=== PATIENT | female | born 1940 | race Caucasian/White ===

== ENCOUNTER 2016-08-10 13:24 | Observation (INO) | payer OTHER, MEDICARE ==
[2016-08-10] MEDS ORDERED: ASPIRIN 81 MG CHEWABLE TABLETS PO ONE (13:37)
[2016-08-10] MEDS ORDERED: ASPIRIN 81 MG CHEWABLE TABLETS ONE (14:02)
[2016-08-10 14:06] VITALS: BMI 21.3
--- NOTE | 2016-08-10 14:12 | PDOC ---
History of Present Illness <Felisa Vargas - Last Filed: 08/10/16 16:11> - General History Source: Patient Exam Limitations: No Limitations - History of Present Illness Presenting Symptoms: Chest Pain Timing/Duration: reports: resolved prior to arrival Severity/Quality: reports: moderate, dull Location: reports: substernal Chest Pain Radiation: reports: no radiation Activities at Onset: reports: none Prior Chest Pain/Cardiac Workup: reports: No prior chest pain Modifying Factors: improves with: other (relieved after taking asa at doctors office) Nitro Today/Relief: Yes: no nitro taken today Aspirin Received prior to arrival (Core Measure): Yes: 325 mg x 1 ASA Contraindications (Core Measure): No: Allergy Beta Vijay given by EMS (Core Measure): No <Gi Morales - Last Filed: 08/10/16 16:43> - General Chief Complaint: Chest Pain Stated Complaint: CHEST PAIN Time Seen by Provider: 08/10/16 13:36 - History of Present Illness Initial Comments: 08/10/16 14:20 76 yo F with h/o HTN breast CA, s/p mastectomy pacemaker, on coumadin here with c/o feeling cp. pt states 2 days ago was feeling muscle cramps, mild anorexia, and didn't feel right. today went to see dr. Martinez, suddently felt chest pain. describes pressure like sensation left chest wall, no radiation, no n/v no fever no sob. no cough. no leg swelling. sent to ED. given ASA in office. ( Gi Morales) Past History <Felisa Vargas - Last Filed: 08/10/16 16:11> - Past Medical History Anemia: No Asthma: No Cancer: Yes (LYMPH NODES LEFT BREAST) Cardiac Disorders: Yes (pacemaker, ) CVA: Yes (HX OF TIA) COPD: No CHF: No Dementia: No (FORGETFUL) Diabetes: No GI Disorders: No Disorders: No HTN: Yes Hypercholesterolemia: Yes Liver Disease: No Suicide Attempt (Hx): No Seizures: No Thyroid Disease: Yes - Surgical History Abdominal Surgery: No Appendectomy: Yes Cardiac Surgery: Yes (PACEMAKER [employer] 0CT 16 2009) Cholecystectomy: No Lung Surgery: No Neurologic Surgery: No Orthopedic Surgery: No - Psycho/Social/Smoking Cessation Hx Suicidal Ideation: No Smoking History: Former smoker Have you smoked in the past 12 months: No Number of Cigarettes Smoked Daily: 4 Information on smoking cessation initiated: No Hx Alcohol Use: No Drug/Substance Use Hx: No Substance Use Type: None Hx Substance Use Treatment: No <Gi Morales - Last Filed: 08/10/16 16:43> - Past Medical History Allergies/Adverse Reactions: Allergies Allergy/AdvReac Type Severity Reaction Status Date / Time No Known Drug Allergies Allergy Verified 08/10/16 13:42 Home Medications: Ambulatory Orders Atorvastatin Ca [Lipitor] 20 mg PO HS 12/29/13 Digoxin 250 mcg PO DAILY 12/29/13 Furosemide [Lasix -] 20 mg PO BID 12/29/13 Letrozole 2.5 mg PO HS 12/29/13 Metoprolol Tartrate [Lopressor -] 50 mg PO BID 12/29/13 [place]-3 Fatty Acids [[place]-3] 1,000 mg PO DAILY 12/29/13 Ranitidine [Zantac -] 150 mg PO DAILY 12/29/13 Levothyroxine [Synthroid -] 150 mcg PO DAILY 11/17/14 Cefadroxil Hydrate [Duricef] 500 mg PO BID #20 capsule 11/26/14 Enoxaparin Sodium [Lovenox] 60 mg SQ DAILY #10 ml 11/26/14 Oxycodone HCl/Acetaminophen [Percocet 5-325 mg Tablet] 1 - 2 tab PO Q6H PRN #20 tab 11/26/14 - Surgical History Comments:: 08/10/16 14:12 mastectomy left breast (Gi Moralse) Cardiac Specific PMH - Complaint Specific PMHX Pacemaker: Yes <Gi Morales - Last Filed: 08/10/16 16:43> Review of Systems - Review of Systems Constitutional: No: Chills, Diaphoresis Respiratory: No: Cough, Orthopnea, Shortness of Breath Cardiac (ROS): Yes: Chest Pain ABD/GI: No: Abdominal Distended Musculoskeletal: Yes: Joint Stiffness Integumentary: No: Bruising, Change in Color All Other Systems: Reviewed and Negative <Gi Morales - Last Filed: 08/10/16 16:43> *Physical Exam - Physical Exam HEENT: positive: [place] Neck: positive: Trachea midline Respiratory/Chest: positive: Lungs Clear, Normal Breath Sounds. negative: Respiratory Distress Cardiovascular: positive: Regular Rhythm, Regular Rate, S1, S2. negative: Edema , JVD Gastrointestinal/Abdominal: positive: Normal Bowel Sounds. negative: Tender, Flat, Soft Musculoskeletal: positive: Normal Inspection Deep Tendon Reflexes: Ankle (L): 2+, Ankle (R): 2+ <Gi Morales - Last Filed: 08/10/16 16:43> - Vital Signs Last Vital Signs Temp Pulse Resp BP Pulse Ox 97.9 F 63 16 158/90 99 08/10/16 13:30 08/10/16 14:56 08/10/16 14:56 08/10/16 14:56 08/10/16 14:56 Heart Score/ECG Review <Felisa Vargas - Last Filed: 08/10/16 16:11> <Gi Morales - Last Filed: 08/10/16 16:43> - ECG Intrepretation Comment:: 08/10/16 14:17 paced ekg ventricular paced, TWI II, III AVF wide qrs. rate 65 bpm (Gi Morales) ED Treatment Course - LABORATORY CBC & Chemistry Diagram: 08/10/16 14:15 08/10/16 14:15 <Felisa Vargas - Last Filed: 08/10/16 16:11> - LABORATORY CBC & Chemistry Diagram: 08/10/16 14:15 08/10/16 14:15 <Gi Morales - Last Filed: 08/10/16 16:43> - ADDITIONAL ORDERS Additional order review: Laboratory Results 08/10/16 08/10/16 14:15 14:15 INR 1.88 H D Sodium 141 Potassium 4.5 Chloride 104 Carbon Dioxide 27 Anion Gap 10 BUN 25 H D Creatinine 0.9 Creat Clearance w eGFR > 60 Random Glucose 87 Calcium 10.2 H Magnesium 2.3 Total Bilirubin 0.5 D AST 30 D ALT 30 D Alkaline Phosphatase 125 H D Creatine Kinase 69 Troponin I < 0.02 Total Protein 8.1 Albumin 3.9 08/10/16 14:15 RBC 4.51 MCV 90.0 MCHC 32.7 RDW 14.7 MPV 8.1 Neutrophils % 71.8 Lymphocytes % 19.3 Monocytes % 5.7 Eosinophils % 2.2 Basophils % 1.0 - RADIOLOGY Radiology Studies Ordered: Category Date Time Status CHEST PA & LAT [RAD] Stat Radiology 08/10/16 13:37 Completed Radiograph Interpretation: 08/10/16 16:11 EXAM: CXR INTERPRETED BY: Dr. Sears REVIEWED BY: Dr. Morales IMPRESSION: Mild increased interstitial lung markings which may reflect chronic interstitial lung disease, and appears slightly worse compared to November 22, 2014. Component of vascular congestion cannot be excluded. (Felisa Vargas) - Medications Given in the ED: ED Medications Discontinued Medications Generic Name Dose Route Start Last Admin Trade Name Freq PRN Reason Stop Dose Admin Aspirin 162 mg 08/10/16 13:37 08/10/16 14:05 Asa - PO 08/10/16 13:38 162 mg ONCE ONE Administration Medical Decision Making <Felisa Vargas - Last Filed: 08/10/16 16:11> <Gi Morales - Last Filed: 08/10/16 16:43> - Medical Decision Making 08/10/16 16:06 First call placed to Dr. Broderick at 16:06. Awaiting call back. Case discussed with Dr. Martinez at 16:08. (Felisa Vargas) 08/10/16 14:18 76 yo F with h/o HTN breast CA, s/p mastectomy pacemaker, on coumadin here with c/o feeling cp. pt states 2 days ago was feeling muscle cramps, mild anorexia, and didn't feel right. today went to see dr. Martinez, suddently felt chest pain. describes pressure like sensation left chest wall, no radiation, no n/v no fever no sob. no cough. no leg swelling. sent to ED. given ASA in office. on exam awake alert, no longer having cp. lungs CTAB card reg paced, no m/r/g. abd soft NT ext wwp no edema. MDM" differentila chest wall pain, effusion, pna, mass, acs. plan cxr labs ekg trop will d/w dr. page david r/o acs. (Gi Morales) *DC/Admit/Observation/Transfer <Felisa Vargas - Last Filed: 08/10/16 16:11> - Discharge Dispostion Admit: Yes <Gi Morales - Last Filed: 08/10/16 16:43> Diagnosis at time of Disposition: Chest pain, Breast cancer, left - Referrals Referrals: Kristina Martinez MD [Primary Care Provider] - - Attestations Scribe Attestion: 08/10/16 16:07 Documentation prepared by Felisa Vargas, acting as hospital medical assistant for Gi Morales MD. (Felisa Vargas)
[2016-08-10 14:27] LABS: EOSINOPHIL 2.2 % (0-4.5); MCH 29.4 pg (25.7-33.7); MCHC 32.7 g/dl (32.0-36.0); MEAN PLT VOLUME 8.1 fl (7.5-11.1); NEUTROPHILS 71.8 % (42.8-82.8); PLATELET COUNT 138 K/MM3 (134-434); RDW 14.7 % (11.6-15.6); WHITE BLOOD COUNT 6.9 K/mm3 (4.0-10.0)
[2016-08-10 14:40] LABS: INR 1.88 (0.82-1.09); PROTHROMBIN TIME (PATIENT) 20.9 SEC (9.98-11.88)
[2016-08-10 14:58] LABS: ALBUMIN 3.9 g/dl (3.4-5.0); ANION GAP 10 (8-16); BILIRUBIN,TOTAL 0.5 mg/dL (0.2-1.0); CALCIUM 10.2 mg/dL (8.5-10.1); CO2 27 mmol/L (21-32); CREATININE 0.9 mg/dL (0.55-1.02); GLUCOSE,RANDOM 87 mg/dL (74-106); MAGNESIUM 2.3 mg/dL (1.8-2.4); SGOT/AST 30 U/L (15-37); SGPT/ALT 30 U/L (12-78); TOT PROT 8.1 g/dl (6.4-8.2)
[2016-08-10 15:00] LABS: ALK PHOS 125 U/L (45-117); TROPONIN I < 0.02 ng/ml (0.00-0.05)
--- NOTE | 2016-08-10 18:10 | CON.CARD ---
Consult Consult Specialty:: Cardiology Reason for Consultation:: Chest pain - History of Present Illness Chief Complaint: Chest pain History of Present Illness: This is a 76 year old female with a PMH of HTN, breast CA with a mastecomy in the past, PPM, and is on chronic coumadin therapy for underlying atrial fibrillation. She presents to the ED with 2 days of intermittent muscle cramps and intermittent chest pain. She described the chest pain to me as a left sided discomfort that was non radiating and not associated with nausea and/or diaphoresis. The chest discomfort may have an exertional component as she stated that she was "moving some furniture" at the time. The first troponin was <0.02. EKG shows underlying atrial fibrillation with electronic ventricular pacing at 65 BPM. 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 Cardio/Vascular: Yes: AFIB, HTN, Hyperlipdemia, Murmur Pulmonary: Yes: COPD - Past Surgical History Past Surgical History: Yes: Permanent Pacemaker - Alcohol/Substance Use Hx Alcohol Use: No - Smoking History Smoking history: Former smoker Have you smoked in the past 12 months: No Aproximately how many cigarettes per day: 4 Home Medications - Allergies Allergies/Adverse Reactions: Allergies Allergy/AdvReac Type Severity Reaction Status Date / Time No Known Drug Allergies Allergy Verified 08/10/16 13:42 - Home Medications Home Medications: Ambulatory Orders Atorvastatin Ca [Lipitor] 20 mg PO HS 12/29/13 Digoxin 250 mcg PO DAILY 12/29/13 Furosemide [Lasix -] 20 mg PO BID 12/29/13 Letrozole 2.5 mg PO HS 12/29/13 Metoprolol Tartrate [Lopressor -] 50 mg PO BID 12/29/13 [place]-3 Fatty Acids [[place]-3] 1,000 mg PO DAILY 12/29/13 Ranitidine [Zantac -] 150 mg PO DAILY 12/29/13 Levothyroxine [Synthroid -] 150 mcg PO DAILY 11/17/14 Cefadroxil Hydrate [Duricef] 500 mg PO BID #20 capsule 11/26/14 Enoxaparin Sodium [Lovenox] 60 mg SQ DAILY #10 ml 11/26/14 Oxycodone HCl/Acetaminophen [Percocet 5-325 mg Tablet] 1 - 2 tab PO Q6H PRN #20 tab 08/28/15 Family Disease History - Family Disease History Family Disease History: CA: Daughter (41) Review of Systems Unable to obtain ROS, reason: A per HPI Vital Signs: Vital Signs Temperature 97.9 F 08/10/16 13:30 Pulse Rate 63 08/10/16 14:56 Respiratory Rate 16 08/10/16 14:56 Blood Pressure 158/90 08/10/16 14:56 O2 Sat by Pulse Oximetry (%) 99 08/10/16 14:56 Constitutional: Yes: No Distress Respiratory: Yes: CTA Bilaterally Gastrointestinal: Yes: Soft Cardiovascular: Yes: Regular Rate and Rhythm JVD: No Carotid Bruit: No Heart Sounds: Yes: S1, S2 (No MRHG. PPM noted.) Extremities: Yes: WNL Edema: No Neurological: Yes: Alert (Grossly non focal), Oriented - Other Data Labs, Other Data: CBC, BMP 08/10/16 14:15 08/10/16 14:15 INR, PTT INR 1.88 (0.82-1.09) H D 08/10/16 14:15 Troponin, BNP 08/10/16 14:15 Troponin I < 0.02 Troponin, BNP 08/10/16 14:15 Troponin I < 0.02 Assessment/Plan Chest pain: Continue to follow troponin sets x 3 Would obtain a pharmacologic nuclear stress test and an echocardiogram Agree with Aspirin 162 mg for now Continue at home cardiac meds including: Atorvastatin Ca [Lipitor] 20 mg PO HS Digoxin 250 mcg PO DAILY 12/29/13 Furosemide [Lasix -] 20 mg PO BID 12/29/13 Metoprolol Tartrate [Lopressor -] 50 mg PO BID 12/29/13 Atrial Fibrillation: Continue anticoagulation INR is 1.88, can continue Coumadin to an INR of 2 - 3 If the stress test is positive, we could hold the Coumadin if invasive testing is planned Continue rate control with metoprolol and dioxin Will follow with you
[2016-08-10] MEDS ORDERED: ACETAMINOPHEN 325 MG TABLET (FP) PO PRN (19:47)
[2016-08-10] MEDS ORDERED: WARFARIN NA 2 MG TABLET (UD) PO ONE (19:49)
[2016-08-10] MEDS: RANITIDINE HCL 150 MG TABLET (FP) PO SCH (21:37)
[2016-08-10] MEDS: METOPROLOL TARTRATE 50 MG TABLET (FP) PO SCH (21:37)
[2016-08-10] MEDS: ATORVASTATIN CA 20 MG TABLET (FP) PO SCH (21:37)
[2016-08-10 22:21] LABS: TROPONIN I < 0.02 ng/ml (0.00-0.05)
[2016-08-11] MEDS: LEVOTHYROXINE NA 88 MCG TABLET (FP) PO SCH (05:59)
[2016-08-11 08:22] LABS: MCHC 32.8 g/dl (32.0-36.0); MEAN CELL VOLUME 88.5 fl (80-96); MEAN PLT VOLUME 8.3 fl (7.5-11.1); PLATELET COUNT 135 K/MM3 (134-434); RDW 14.5 % (11.6-15.6); WHITE BLOOD COUNT 7.6 K/mm3 (4.0-10.0)
--- NOTE | 2016-08-11 08:33 | PN ---
Progress Note, Physician Chief Complaint: Admitted with chest pain Telem Afib with occ Vpaced. No symptoms overnight - Current Medication List Current Medications: Active Medications Acetaminophen (Tylenol -) 650 mg PO Q6H PRN PRN Reason: FEVER OR PAIN Aspirin (Ecotrin -) 81 mg PO DAILY [facility] Atorvastatin Calcium (Lipitor -) 20 mg PO HS [facility] Last Admin: 08/10/16 21:37 Dose: 20 mg Digoxin (Lanoxin -) 0.125 mg PO DAILY [facility] Levothyroxine Sodium (Synthroid -) 88 mcg PO DAILY@0700 [facility] Last Admin: 08/11/16 05:59 Dose: 88 mcg Metoprolol Tartrate (Lopressor -) 100 mg PO BID [facility] Last Admin: 08/10/16 21:37 Dose: 100 mg Ranitidine HCl (Zantac -) 150 mg PO DAILY [facility] Last Admin: 08/10/16 21:37 Dose: 150 mg Warfarin Sodium (Coumadin -) 3.5 mg PO DAILY@1800 [facility] - Objective Vital Signs: Vital Signs Temperature 99 F 08/11/16 05:45 Pulse Rate 66 08/11/16 05:45 Respiratory Rate 16 08/11/16 05:45 Blood Pressure 125/54 08/11/16 05:45 O2 Sat by Pulse Oximetry (%) 99 08/10/16 23:52 Constitutional: Yes: Well Nourished, No Distress HENT: Yes: WNL Neck: Yes: WNL Cardiovascular: Yes: Pulse Irregular Respiratory: Yes: CTA Bilaterally Gastrointestinal: Yes: Normal Bowel Sounds, Soft Edema: No Peripheral Pulses WNL: Yes Labs: CBC, BMP 08/11/16 05:40 INR, PTT INR 1.88 (0.82-1.09) H D 08/10/16 14:15 Troponin, BNP 08/10/16 08/10/16 14:15 21:36 Troponin I < 0.02 < 0.02 Laboratory Results - last 24 hr 08/10/16 08/10/16 08/10/16 14:15 14:15 14:15 WBC 6.9 D RBC 4.51 Hgb 13.2 D Hct 40.6 D MCV 90.0 MCHC 32.7 RDW 14.7 Plt Count 138 MPV 8.1 Neutrophils % 71.8 Lymphocytes % 19.3 Monocytes % 5.7 Eosinophils % 2.2 Basophils % 1.0 INR 1.88 H D Sodium 141 Potassium 4.5 Chloride 104 Carbon Dioxide 27 Anion Gap 10 BUN 25 H D Creatinine 0.9 Creat Clearance w eGFR > 60 Random Glucose 87 Calcium 10.2 H Magnesium 2.3 Total Bilirubin 0.5 D AST 30 D ALT 30 D Alkaline Phosphatase 125 H D Creatine Kinase 69 Troponin I < 0.02 Total Protein 8.1 Albumin 3.9 08/10/16 08/11/16 21:36 05:40 WBC 7.6 RBC 3.96 Hgb 11.5 D Hct 35.1 MCV 88.5 MCHC 32.8 RDW 14.5 Plt Count 135 MPV 8.3 Neutrophils % Lymphocytes % Monocytes % Eosinophils % Basophils % INR Sodium Potassium Chloride Carbon Dioxide Anion Gap BUN Creatinine Creat Clearance w eGFR Random Glucose Calcium Magnesium Total Bilirubin AST ALT Alkaline Phosphatase Creatine Kinase 78 Troponin I < 0.02 Total Protein Albumin - ....Imaging Chest X-ray: Report Reviewed Problem List - Problems (1) Chest pain Assessment/Plan: History of breast cancer with new onset of CP. OREN negative. Please obtain pharmacologic stress and an echocardiogram. Code(s): R07.9 - CHEST PAIN, UNSPECIFIED (2) A-fib Assessment/Plan: Rate controlled INR, PTT INR 1.88 (0.82-1.09) H D 08/10/16 14:15 Goal INR 2-3 Will follow Code(s): I48.91 - UNSPECIFIED ATRIAL FIBRILLATION
[2016-08-11 08:50] LABS: INR 2.1 (0.82-1.09); PROTHROMBIN TIME (PATIENT) 23.5 SEC (9.98-11.88)
[2016-08-11 08:52] LABS: CHOLESTEROL 181 mg/dL (50-200); LDL CHOLESTEROL (ONLY SJRH) 84 mg/dL (5-100)
[2016-08-11 09:10] LABS: ALBUMIN 3.1 g/dl (3.4-5.0); ALK PHOS 102 U/L (45-117); ANION GAP 8 (8-16); BILIRUBIN,TOTAL 1.3 mg/dL (0.2-1.0); CALCIUM 9.5 mg/dL (8.5-10.1); CO2 27 mmol/L (21-32); CREATININE 0.9 mg/dL (0.55-1.02); GLUCOSE,RANDOM 85 mg/dL (74-106); SGOT/AST 26 U/L (15-37); SGPT/ALT 24 U/L (12-78); TOT PROT 6.3 g/dl (6.4-8.2)
[2016-08-11] MEDS: METOPROLOL TARTRATE 50 MG TABLET (FP) PO SCH ×2 (09:46→21:43)
[2016-08-11] MEDS: DIGOXIN 0.125 MG TABLET (FP) PO SCH (09:46)
[2016-08-11] MEDS: ASPIRIN COATED 81 MG TABLET.EC PO SCH (09:47)
[2016-08-11] MEDS: RANITIDINE HCL 150 MG TABLET (FP) PO SCH (09:47)
--- NOTE | 2016-08-11 14:16 | HP ---
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 Cardiovascular: Yes: AFIB, HTN, Hyperlipdemia, Murmur Pulmonary: Yes: COPD Heme/Onc: Yes: Cancer (BREAST) - Past Surgical History Past Surgical History: Yes: Permanent Pacemaker - Smoking History Smoking history: Former smoker Have you smoked in the past 12 months: No Aproximately how many cigarettes per day: 4 - Alcohol/Substance Use Hx Alcohol Use: No Home Medications - Allergies Allergies/Adverse Reactions: Allergies Allergy/AdvReac Type Severity Reaction Status Date / Time No Known Drug Allergies Allergy Verified 08/10/16 13:42 - Home Medications Home Medications: Ambulatory Orders Atorvastatin Ca [Lipitor] 20 mg PO HS 12/29/13 Metoprolol Tartrate [Lopressor -] 100 mg PO BID 12/29/13 [place]-3 Fatty Acids [[place]-3] 1,000 mg PO DAILY 12/29/13 Ranitidine [Zantac -] 150 mg PO DAILY 12/29/13 Levothyroxine [Synthroid -] 88 mcg PO DAILY 11/17/14 Cholecalciferol (Vitamin D3) [Vitamin D3 -] 2,000 unit PO DAILY 08/10/16 Digoxin [Lanoxin -] 0.125 mg PO DAILY 08/10/16 Warfarin Sodium 3.5 mg PO 1800 08/10/16 Family Disease History - Family Disease History Family Disease History: CA: Daughter (41) Review of Systems - Review of Systems Constitutional: reports: No Symptoms Eyes: reports: No Symptoms HENT: reports: No Symptoms Neck: reports: No Symptoms Cardiovascular: reports: Chest Pain, Shortness of Breath Respiratory: reports: Orthopnea, SOB Gastrointestinal: reports: No Symptoms Genitourinary: reports: No Symptoms Musculoskeletal: reports: No Symptoms Integumentary: reports: No Symptoms Neurological: reports: No Symptoms Endocrine: reports: No Symptoms Hematology/Lymphatic: reports: No Symptoms Psychiatric: reports: No Symptoms Physical Examination Vital Signs: Vital Signs Temperature 99 F 08/11/16 05:45 Pulse Rate 65 08/11/16 09:46 Respiratory Rate 16 08/11/16 05:45 Blood Pressure 125/54 08/11/16 05:45 O2 Sat by Pulse Oximetry (%) 99 08/10/16 23:52 Constitutional: Yes: Mild Distress Eyes: Yes: WNL HENT: Yes: WNL Neck: Yes: WNL Cardiovascular: Yes: Pulse Irregular Respiratory: Yes: WNL, On Nasal O2 Gastrointestinal: Yes: WNL Renal/: Yes: WNL Musculoskeletal: Yes: WNL Extremities: Yes: WNL Edema: No Peripheral Pulses WNL: Yes Integumentary: Yes: WNL Wound/Incision: Yes: Clean/Dry Neurological: Yes: WNL ...Motor Strength: WNL Psychiatric: Yes: WNL Labs: CBC, BMP 08/11/16 05:40 08/11/16 05:40 Problem List - Problems (1) Chest pain Code(s): R07.9 - CHEST PAIN, UNSPECIFIED Qualifiers: Ischemic chest pain type: unstable angina pectoris (2) A-fib Code(s): I48.91 - UNSPECIFIED ATRIAL FIBRILLATION (3) CVA (cerebral infarction) Code(s): I63.9 - CEREBRAL INFARCTION, UNSPECIFIED (4) Dizziness Code(s): R42 - DIZZINESS AND GIDDINESS Assessment/Plan CARDIOLOGY WORKUP IN PROGRESS INR THERAPEUTIC TODAY CONTINUE COUMADIN 02 SUPPORT CARDIOLOG CONSULT APPRECIATED BREAST CA STABLE OLD CVA
[2016-08-11] MEDS ORDERED: WARFARIN NA 3 MG TABLET PO SCH (18:00)
[2016-08-11] MEDS: ATORVASTATIN CA 20 MG TABLET (FP) PO SCH (21:42)
[2016-08-12] MEDS: LEVOTHYROXINE NA 88 MCG TABLET (FP) PO SCH (06:09)
--- NOTE | 2016-08-12 08:38 | PN ---
Progress Note, Physician Chief Complaint: Admitted with chest pain Telem Afib with occ Vpaced. No symptoms overnight Telem Afib occ Paced - Current Medication List Current Medications: Active Medications Acetaminophen (Tylenol -) 650 mg PO Q6H PRN PRN Reason: FEVER OR PAIN Aspirin (Ecotrin -) 81 mg PO DAILY [facility] Last Admin: 08/11/16 09:47 Dose: 81 mg Atorvastatin Calcium (Lipitor -) 20 mg PO HS [facility] Last Admin: 08/11/16 21:42 Dose: 20 mg Digoxin (Lanoxin -) 0.125 mg PO DAILY [facility] Last Admin: 08/11/16 09:46 Dose: 0.125 mg Levothyroxine Sodium (Synthroid -) 88 mcg PO DAILY@0700 [facility] Last Admin: 08/12/16 06:09 Dose: 88 mcg Metoprolol Tartrate (Lopressor -) 100 mg PO BID [facility] Last Admin: 08/11/16 21:43 Dose: 100 mg Ranitidine HCl (Zantac -) 150 mg PO DAILY [facility] Last Admin: 08/11/16 09:47 Dose: 150 mg Warfarin Sodium (Coumadin -) 3.5 mg PO DAILY@1800 [facility] - Objective Vital Signs: Vital Signs Temperature 97.2 F L 08/12/16 06:00 Pulse Rate 66 08/12/16 06:00 Respiratory Rate 20 08/12/16 06:00 Blood Pressure 138/72 08/12/16 06:00 O2 Sat by Pulse Oximetry (%) 96 08/11/16 21:00 Constitutional: Yes: Calm Eyes: Yes: WNL, Conjunctiva Clear HENT: Yes: WNL, Atraumatic, Normocephalic Neck: Yes: WNL Cardiovascular: Yes: Pulse Irregular Respiratory: Yes: WNL Gastrointestinal: Yes: WNL Labs: CBC, BMP 08/11/16 05:40 08/11/16 05:40 INR, PTT INR 2.10 (0.82-1.09) H 08/11/16 05:40 Problem List - Problems (1) Chest pain Assessment/Plan: History of breast cancer with new onset of CP. OREN negative. Please obtain pharmacologic stress and an echocardiogram. Please check dig level (ordered) Code(s): R07.9 - CHEST PAIN, UNSPECIFIED Qualifiers: Ischemic chest pain type: unstable angina pectoris (2) A-fib Code(s): I48.91 - UNSPECIFIED ATRIAL FIBRILLATION Qualifiers: Atrial fibrillation type: chronic Qualified Code(s): I48.2 - Chronic atrial fibrillation
[2016-08-12] MEDS: ASPIRIN COATED 81 MG TABLET.EC PO SCH (10:33)
[2016-08-12] MEDS: DIGOXIN 0.125 MG TABLET (FP) PO SCH (10:33)
[2016-08-12] MEDS: RANITIDINE HCL 150 MG TABLET (FP) PO SCH (10:34)
[2016-08-12] MEDS: METOPROLOL TARTRATE 50 MG TABLET (FP) PO SCH ×2 (10:43→21:17)
[2016-08-12 11:26] LABS: INR 2.1 (0.82-1.09); PROTHROMBIN TIME (PATIENT) 23.4 SEC (9.98-11.88)
[2016-08-12] MEDS: WARFARIN NA 1 MG TABLET (FP) PO SCH (18:07)
--- NOTE | 2016-08-12 20:59 | PN ---
Progress Note, Physician Chief Complaint: AWAKE ALERT NAD - Current Medication List Current Medications: Active Medications Acetaminophen (Tylenol -) 650 mg PO Q6H PRN PRN Reason: FEVER OR PAIN Aspirin (Ecotrin -) 81 mg PO DAILY [facility] Last Admin: 08/12/16 10:33 Dose: 81 mg Atorvastatin Calcium (Lipitor -) 20 mg PO HS [facility] Last Admin: 08/11/16 21:42 Dose: 20 mg Digoxin (Lanoxin -) 0.125 mg PO DAILY [facility] Last Admin: 08/12/16 10:33 Dose: 0.125 mg Levothyroxine Sodium (Synthroid -) 88 mcg PO DAILY@0700 [facility] Last Admin: 08/12/16 06:09 Dose: 88 mcg Metoprolol Tartrate (Lopressor -) 100 mg PO BID [facility] Last Admin: 08/12/16 10:43 Dose: 100 mg Ranitidine HCl (Zantac -) 150 mg PO DAILY [facility] Last Admin: 08/12/16 10:34 Dose: 150 mg Warfarin Sodium (Coumadin -) 3.5 mg PO DAILY@1800 [facility] Last Admin: 08/12/16 18:07 Dose: 3.5 mg - Objective Vital Signs: Vital Signs Temperature 98.0 F 08/12/16 17:10 Pulse Rate 80 08/12/16 17:10 Respiratory Rate 18 08/12/16 17:10 Blood Pressure 140/68 08/12/16 17:10 O2 Sat by Pulse Oximetry (%) 96 08/11/16 21:00 Constitutional: Yes: No Distress Eyes: Yes: WNL HENT: Yes: WNL Neck: Yes: WNL Cardiovascular: Yes: WNL Respiratory: Yes: WNL Gastrointestinal: Yes: WNL Genitourinary: Yes: WNL Musculoskeletal: Yes: WNL Extremities: Yes: WNL Edema: No Peripheral Pulses WNL: Yes Integumentary: Yes: WNL Wound/Incision: Yes: Clean/Dry Neurological: Yes: WNL ...Motor Strength: WNL Psychiatric: Yes: WNL Labs: CBC, BMP 08/11/16 05:40 08/11/16 05:40 INR, PTT INR 2.10 (0.82-1.09) H 08/12/16 11:07 Problem List - Problems (1) Chest pain Code(s): R07.9 - CHEST PAIN, UNSPECIFIED Qualifiers: Ischemic chest pain type: unstable angina pectoris (2) A-fib Code(s): I48.91 - UNSPECIFIED ATRIAL FIBRILLATION Qualifiers: Atrial fibrillation type: chronic Qualified Code(s): I48.2 - Chronic atrial fibrillation (3) CVA (cerebral infarction) Code(s): I63.9 - CEREBRAL INFARCTION, UNSPECIFIED (4) Dizziness Code(s): R42 - DIZZINESS AND GIDDINESS Assessment/Plan CARDIOLOGY WORKUP IN PROGRESS STRESS TEST IN AM INR THERAPEUTIC TODAY CONTINUE COUMADIN 02 SUPPORT CARDIOLOG CONSULT APPRECIATED BREAST CA STABLE OLD CVA
[2016-08-12] MEDS: ATORVASTATIN CA 20 MG TABLET (FP) PO SCH (21:17)
[2016-08-13] MEDS: LEVOTHYROXINE NA 88 MCG TABLET (FP) PO SCH (05:59)
--- NOTE | 2016-08-13 08:26 | PN ---
Progress Note, Physician History of Present Illness: feels better no cp or sob - Current Medication List Current Medications: Active Medications Acetaminophen (Tylenol -) 650 mg PO Q6H PRN PRN Reason: FEVER OR PAIN Aspirin (Ecotrin -) 81 mg PO DAILY [facility] Last Admin: 08/12/16 10:33 Dose: 81 mg Atorvastatin Calcium (Lipitor -) 20 mg PO HS [facility] Last Admin: 08/12/16 21:17 Dose: 20 mg Digoxin (Lanoxin -) 0.125 mg PO DAILY [facility] Last Admin: 08/12/16 10:33 Dose: 0.125 mg Levothyroxine Sodium (Synthroid -) 88 mcg PO DAILY@0700 [facility] Last Admin: 08/13/16 05:59 Dose: 88 mcg Metoprolol Tartrate (Lopressor -) 100 mg PO BID [facility] Last Admin: 08/12/16 21:17 Dose: 100 mg Ranitidine HCl (Zantac -) 150 mg PO DAILY [facility] Last Admin: 08/12/16 10:34 Dose: 150 mg Warfarin Sodium (Coumadin -) 3.5 mg PO DAILY@1800 [facility] Last Admin: 08/12/16 18:07 Dose: 3.5 mg - Objective Vital Signs: Vital Signs Temperature 98.0 F 08/13/16 05:48 Pulse Rate 65 08/13/16 05:48 Respiratory Rate 20 08/13/16 05:48 Blood Pressure 133/65 08/13/16 05:48 O2 Sat by Pulse Oximetry (%) 96 08/13/16 04:26 Eyes: Yes: Conjunctiva Clear Cardiovascular: Yes: Murmur, S1, S2 Respiratory: Yes: Regular, CTA Bilaterally Gastrointestinal: Yes: Normal Bowel Sounds, Soft Edema: No Labs: INR, PTT INR 2.10 (0.82-1.09) H 08/12/16 11:07 Problem List - Problems (1) Chest pain Assessment/Plan: CE NEGATIVE STRESS TEST CARDIO NOTED Code(s): R07.9 - CHEST PAIN, UNSPECIFIED Qualifiers: Ischemic chest pain type: unstable angina pectoris (2) A-fib Assessment/Plan: CONTINUE WITH AC INR, PTT INR 2.10 (0.82-1.09) H 08/12/16 11:07 Code(s): I48.91 - UNSPECIFIED ATRIAL FIBRILLATION Qualifiers: Atrial fibrillation type: chronic Qualified Code(s): I48.2 - Chronic atrial fibrillation (3) Breast cancer Code(s): C50.919 - MALIGNANT NEOPLASM OF UNSP SITE OF UNSPECIFIED FEMALE BREAST Qualifiers: Breast location: central portion of breast Laterality: left (4) Pacemaker Assessment/Plan: MONITOR Code(s): Z95.0 - PRESENCE OF CARDIAC PACEMAKER
[2016-08-13] MEDS ORDERED: DIPYRIDAMOLE STRESS TEST IVPB ONE (10:00)
[2016-08-13] MEDS ORDERED: WATER IVPB ONE (10:00)
[2016-08-13] MEDS ORDERED: DEXTROSE 5% IVPB ONE (10:00)
--- NOTE | 2016-08-13 12:55 | EKG ---
Test Reason : Blood Pressure : / mmHG Vent. Rate : 065 BPM Atrial Rate : 067 BPM P-R Int : 000 ms QRS Dur : 160 ms QT Int : 408 ms P-R-T Axes : 000 081 193 degrees QTc Int : 424 ms Ventricular-paced rhythm UNDERLYING ATRIAL FIBRILLATION ABNORMAL ECG WHEN COMPARED WITH ECG OF 20-JUN-2014 19:37, NO SIGNIFICANT CHANGE WAS FOUND Confirmed by ANT SALAS MD ([id number]) on 08/13/2016 12:55:17 PM Referred By: Confirmed By:NAT SALAS MD
[2016-08-13] MEDS: DIGOXIN 0.125 MG TABLET (FP) PO SCH (13:10)
[2016-08-13] MEDS: ASPIRIN COATED 81 MG TABLET.EC PO SCH (13:10)
[2016-08-13] MEDS: METOPROLOL TARTRATE 50 MG TABLET (FP) PO SCH (13:10)
[2016-08-13] MEDS: RANITIDINE HCL 150 MG TABLET (FP) PO SCH (13:11)
[2016-08-13 13:17] VITALS: BP 130/60; PULSE 75; TEMP 97.8
--- NOTE | 2016-08-13 14:25 | PN ---
Progress Note, Physician Chief Complaint: chest pain on admission No pain since admission Tele: afib with v-pacing intermittent. History of Present Illness: This is a 76 year old female with a PMH of HTN, breast CA with a mastecomy in the past, PPM, and is on chronic coumadin therapy for underlying atrial fibrillation. She presents to the ED with 2 days of intermittent muscle cramps and intermittent chest pain. EKG shows underlying atrial fibrillation with electronic ventricular pacing at 65 BPM. - Current Medication List Current Medications: Active Medications Acetaminophen (Tylenol -) 650 mg PO Q6H PRN PRN Reason: FEVER OR PAIN Aspirin (Ecotrin -) 81 mg PO DAILY [facility] Last Admin: 08/13/16 13:10 Dose: 81 mg Atorvastatin Calcium (Lipitor -) 20 mg PO HS [facility] Last Admin: 08/12/16 21:17 Dose: 20 mg Digoxin (Lanoxin -) 0.125 mg PO DAILY [facility] Last Admin: 08/13/16 13:10 Dose: 0.125 mg Levothyroxine Sodium (Synthroid -) 88 mcg PO DAILY@0700 [facility] Last Admin: 08/13/16 05:59 Dose: 88 mcg Metoprolol Tartrate (Lopressor -) 100 mg PO BID [facility] Last Admin: 08/13/16 13:10 Dose: 100 mg Ranitidine HCl (Zantac -) 150 mg PO DAILY [facility] Last Admin: 08/13/16 13:11 Dose: 150 mg Warfarin Sodium (Coumadin -) 3.5 mg PO DAILY@1800 [facility] Last Admin: 08/12/16 18:07 Dose: 3.5 mg - Objective Vital Signs: Vital Signs Temperature 97.8 F 08/13/16 13:16 Pulse Rate 75 08/13/16 13:16 Respiratory Rate 22 08/13/16 13:16 Blood Pressure 130/60 08/13/16 13:16 O2 Sat by Pulse Oximetry (%) 96 08/13/16 04:26 Constitutional: Yes: No Distress Neck: Yes: WNL Cardiovascular: Yes: S1, S2. No: Regular Rate and Rhythm, JVD Respiratory: Yes: CTA Bilaterally Gastrointestinal: Yes: WNL Musculoskeletal: Yes: WNL Edema: No Labs: INR, PTT INR 2.10 (0.82-1.09) H 08/12/16 11:07 - ....Imaging Chest X-ray: Report Reviewed EKG: Image Reviewed Problem List - Problems (1) Chest pain Code(s): R07.9 - CHEST PAIN, UNSPECIFIED Qualifiers: Ischemic chest pain type: unstable angina pectoris (2) A-fib Code(s): I48.91 - UNSPECIFIED ATRIAL FIBRILLATION Qualifiers: Atrial fibrillation type: chronic Qualified Code(s): I48.2 - Chronic atrial fibrillation Assessment/Plan This is a 76 year old female with a PMH of HTN, breast CA with a mastecomy in the past, PPM, and is on chronic coumadin therapy for underlying atrial fibrillation. She presents to the ED with 2 days of intermittent muscle cramps and intermittent chest pain. EKG shows underlying atrial fibrillation with electronic ventricular pacing at 65 BPM. 1) Chest pain -Negative cardiac enzymes On aspirin/statin/beta rik No recurrent chest pain Plan is for echocardiogram and Nuclear stress test. 2) Afib -rate control on metoprolol and digoxin H/o ppm -On coumadin with goal INR 2-3. If plan for further cardiac intervention will stop coumadin.
[2016-08-13] MEDS: WARFARIN NA 1 MG TABLET (FP) PO SCH (17:29)
== END 2016-08-13 18:30 | disposition home or self-care (01) ==
LOC: JER 13:24 → UNDOADMOB 16:44 → JERBED 16:44 → INTOOBSV 16:44 → J4W 19:26 → JERBED 19:26 → J4W 08-12 20:26
PROVIDERS: ADMIT Family Medicine; ATTEND Family Medicine
PROC: 3E033GC Introduction of Other Therapeutic Substance into Peripheral Vein, Percutaneous Approach (ICD-10-PCS; principal; 2016-08-12)
DX: R07.9 Chest pain, unspecified (principal); I48.2 Chronic atrial fibrillation; I10 Essential (primary) hypertension; I63.9 Cerebral infarction, unspecified; E78.5 Hyperlipidemia, unspecified; J44.9 Chronic obstructive pulmonary disease, unspecified; R01.1 Cardiac murmur, unspecified; R42 Dizziness and giddiness; Z85.3 Personal history of malignant neoplasm of breast; Z95.0 Presence of cardiac pacemaker; Z79.01 Long term (current) use of anticoagulants; Z86.73 Personal history of transient ischemic attack (TIA), and cerebral infarction without residual deficits; Z87.891 Personal history of nicotine dependence; Z79.82 Long term (current) use of aspirin
CPT/HCPCS: 36415; 71020-TC; 78452-TC; 80053; 80061; 80162; 82550; 83721; 83735; 84443; 84484; 85025; 85027; 85610; 93005; 93010; 93017; 99284-25; A9502; G0378; J1245

== ENCOUNTER 2017-06-29 18:58 | Inpatient (IN) | payer OTHER, MEDICARE ==
[2017-06-29 19:05] VITALS: BMI 19.3
--- NOTE | 2017-06-29 19:24 | PDOC ---
History of Present Illness - General Chief Complaint: Weakness Stated Complaint: WEAKNESS Time Seen by Provider: 06/29/17 19:24 - History of Present Illness Initial Comments: 77 year female with remote history of CVA (no deficits, on Coumadin), HTN, and CHF (with pacemaker) presenting with a few days of depressed appetite and weakness. Per her daughter, she has not had much interest in eating and has been weaker than normal. The patient actually states she feels well but slightly more lethargic than usual. She also admits to a RLE weakness that came on within the last few weeks. Denies any fevers, chills, nausea, vomiting, diarrhea, abdominal pain, chest pain, or other symptoms. She lives at home alone , ambulates without assistance, and takes care of her own medication administration. 06/29/17 21:37 Past History - Past Medical History Allergies/Adverse Reactions: Allergies Allergy/AdvReac Type Severity Reaction Status Date / Time No Known Drug Allergies Allergy Verified 06/29/17 19:05 Home Medications: Ambulatory Orders Atorvastatin Ca [Lipitor] 20 mg PO HS 12/29/13 Metoprolol Tartrate [Lopressor -] 100 mg PO BID 12/29/13 [place]-3 Fatty Acids [Fithian-3] 1,000 mg PO DAILY 12/29/13 Ranitidine [Zantac -] 150 mg PO DAILY 12/29/13 Levothyroxine [Synthroid -] 88 mcg PO DAILY 11/17/14 Cholecalciferol (Vitamin D3) [Vitamin D -] 2,000 unit PO DAILY 08/10/16 Digoxin [Lanoxin -] 0.125 mg PO DAILY 08/10/16 Warfarin Sodium 3 mg PO 1800 08/10/16 Levothyroxine [Synthroid -] 88 mcg PO DAILY@0700 tablet 08/13/16 Anemia: No Asthma: No Cancer: Yes (LYMPH NODES LEFT BREAST) Cardiac Disorders: Yes (pacemaker) CVA: Yes (HX OF TIA) COPD: No CHF: No Dementia: No (FORGETFUL) Diabetes: No GI Disorders: No Disorders: No HTN: Yes Hypercholesterolemia: Yes Liver Disease: No Seizures: No Thyroid Disease: Yes - Surgical History Abdominal Surgery: No Appendectomy: Yes Cardiac Surgery: Yes (PACEMAKER [employer] 0CT 2009) Cholecystectomy: No Lung Surgery: No Neurologic Surgery: No Orthopedic Surgery: No - Suicide/Smoking/Psychosocial Hx Smoking History: Never smoked Have you smoked in the past 12 months: No Number of Cigarettes Smoked Daily: 4 Information on smoking cessation initiated: No Hx Alcohol Use: No Drug/Substance Use Hx: No Substance Use Type: None Hx Substance Use Treatment: No Review of Systems - Review of Systems Constitutional: No: Chills, Diaphoresis, Fever HEENTM: No: Eye Pain, Blurred Vision Respiratory: No: Cough, Orthopnea, Shortness of Breath Cardiac (ROS): No: Chest Pain, Edema, Irregular Heart Rate ABD/GI: Yes: Poor Appetite, Poor Fluid Intake. No: Abdominal Distended, Diarrhea, Nausea, Vomiting : No: Dysuria, Discharge, Frequency Musculoskeletal: Yes: Joint Pain, Joint Stiffness. No: Back Pain, Joint Swelling Integumentary: No: Bruising, Lesions, Lumps Neurological: No: Headache, Numbness, Paresthesia *Physical Exam - Vital Signs Last Vital Signs Temp Pulse Resp BP Pulse Ox 97 F L 95 H 18 176/102 97 06/29/17 18:59 06/29/17 18:59 06/29/17 18:59 06/29/17 18:59 06/29/17 18:59 - Physical Exam General Appearance: Yes: Nourished, Appropriately Dressed. No: Apparent Distress HEENT: positive: EOMI, PRUDENCE, Normal ENT Inspection, Normal Voice Neck: positive: Trachea midline, Normal Thyroid, Supple. negative: Tender, Rigid Respiratory/Chest: positive: Lungs Clear, Normal Breath Sounds. negative: Chest Tender, Respiratory Distress, Accessory Muscle Use Cardiovascular: positive: Regular Rhythm, Regular Rate Gastrointestinal/Abdominal: positive: Normal Bowel Sounds, Flat, Soft. negative : Tender Musculoskeletal: positive: Normal Inspection. negative: Decreased Range of Motion Extremity: positive: Normal Capillary Refill, Normal Inspection, Normal Range of Motion. negative: Tender Integumentary: positive: Normal Color, Dry, Warm Neurologic: positive: Fully Oriented, Alert, Normal Mood/Affect. negative: Motor Strength 5/5 (5/5 strength in Bl UEs with 4/5 strength in RLE and 5/5 strength in LLE) ED Treatment Course - LABORATORY CBC & Chemistry Diagram: 06/29/17 20:30 06/29/17 20:30 Medical Decision Making - Medical Decision Making 77 year old female with history of CVA presenting with new RLE deficit for an undefined amount of time. Stroke scale was a 1 and patient well outside the window with last known normal one week prior. CT head demonstrating multiple small likely chronic changes but this could be a small acute infarct as well. Other labs were WNL with the exception of supratherapeutic INR to 4.1. Placed consult for Shelly and admitted patient's to hospitalist. She is amenable to admission and otherwise stable. 06/30/17 00:23 *DC/Admit/Observation/Transfer Diagnosis at time of Disposition: CVA (cerebral infarction) Qualifiers: Cerebral infarction mechanism: unspecified mechanism Qualified Code(s): I63.9 - Cerebral infarction, unspecified - Discharge Dispostion Condition at time of disposition: Stable Admit: Yes - Referrals Referrals: Kristina Martinez MD [Primary Care Provider] - - Patient Instructions - Post Discharge Activity
[2017-06-29 20:35] LABS: BASO % 0.6 % (0-2.0); EOS % 1.4 % (0-4.5); HEMATOCRIT 36.6 % (32.4-45.2); HEMOGLOBIN 12.2 GM/dL (10.7-15.3); LYMPH % 8.9 % (8-40); MCH 28.9 pg (25.7-33.7); MCHC 33.3 g/dl (32.0-36.0); MEAN CELL VOLUME 86.8 fl (80-96); MEAN PLT VOLUME 8.3 fl (7.5-11.1); NEUT % 82.1 % (42.8-82.8); PLATELET COUNT 186 K/MM3 (134-434); RBC 4.21 M/mm3 (3.60-5.2); WHITE BLOOD COUNT 8.2 K/mm3 (4.0-10.0)
[2017-06-29 21:01] LABS: ALBUMIN 3.3 g/dl (3.4-5.0); ANION GAP 6 (8-16); BILIRUBIN,TOTAL 0.7 mg/dL (0.2-1.0); BLOOD UREA NITROGEN 27 mg/dL (7-18); CALCIUM 10.2 mg/dL (8.5-10.1); CHLORIDE 104 mmol/L (98-107); CO2 30 mmol/L (21-32); GLUCOSE,RANDOM 95 mg/dL (74-106); POTASSIUM 4.5 mmol/L (3.5-5.1); SGOT/AST 72 U/L (15-37); SGPT/ALT 23 U/L (12-78); SODIUM 140 mmol/L (136-145); TOT PROT 7.6 g/dl (6.4-8.2)
[2017-06-29 21:16] LABS: ALK PHOS 287 U/L (45-117)
[2017-06-29 21:19] LABS: PROTHROMBIN TIME (PATIENT) 46.7 SEC (9.98-11.88)
[2017-06-29 21:22] LABS: INR 4.13 (0.82-1.09)
[2017-06-29] MEDS ORDERED: SODIUM CHLORIDE 0.9% 500 ML INFUS.BAG IV ONE (21:41)
[2017-06-29 23:10] LABS: URINE APPEARANCE SLCLOUDY; URINE BILIRUBIN NEGATIVE (<2.0 mg/dL); URINE BLOOD NEGATIVE (NEGATIVE); URINE COLOR YELLOW; URINE GLUCOSE (UA) NEGATIVE (NEGATIVE); URINE KETONE TRACE (NEGATIVE); URINE LEUK ESTERASE NEGATIVE (NEGATIVE); URINE NITRITE NEGATIVE (NEGATIVE); URINE UROBILINOGEN NEGATIVE mg/dL (0.2-1.0)
[2017-06-29 23:23] LABS: URINE PROTEIN 2+ (NEGATIVE)
[2017-06-29 23:24] LABS: EPI CELLS FEW /HPF (FEW); URINE BACTERIA RARE /hpf (NONE SEEN); URINE HYALINE CAST 4 /lpf; URINE MUCUS MANY
--- NOTE | 2017-06-29 23:34 | PDOC ---
Attending Attestation - Medical Decision Making 06/29/17 23:42 Lisa, Daughter, <Abdoul Rea - Last Filed: 06/29/17 23:42> - Resident Resident Name: Kel Reyes - ED Attending Attestation I have performed the following: I have examined & evaluated the patient, The case was reviewed & discussed with the resident, I agree w/resident's findings & plan, Exceptions are as noted - HPI HPI: 06/29/17 23:56 Patient is a 77 year old female with a significant past medical history of Afib on coumadin, HTN, Breast CA, CVA (with no residual deficits), Hyperlipidemia, Murmur, COPD, who presents to the ED with complaints of weakness. Patient reports noticing increased weakness as well as decreased appetite that she states began 3 days ago. Pt also notes that she has been having some weakness in her RLE for around a week, but this has become worse, at times making her feel as though she is falling to her right when she ambulates. She also notes she has had to carry her R leg out of the car when she is exiting which is new. Denies chest pain, Sob. Denies nausea, vomiting. Denies constipation, diarrhea, dysuria, hematuria. Denies headache. Denies contact with sick individuals, out of state travelling. Denies numbness, tingles. Denies any other symptoms. Allergies: None Social history: Lives alone. Former smoker, No alcohol, No illicit drugs. Surgical history: Permanent Pacemaker PMD: Dr. Kristina Martinez - Physicial Exam PE: 06/29/17 23:41 GENERAL: Awake, alert, and fully oriented, in no acute distress HEAD: No signs of trauma EYES: PERRLA, EOMI, sclera anicteric, conjunctiva clear ENT: Auricles normal inspection, hearing grossly normal, nares patent, oropharynx clear without exudates. Moist mucosa NECK: Normal ROM, supple, no lymphadenopathy, JVD, or masses LUNGS: Breath sounds equal, clear to auscultation bilaterally. No wheezes, and no crackles HEART: Regular rate and rhythm, normal S1 and S2, no murmurs, rubs or gallops ABDOMEN: Soft, nontender, normoactive bowel sounds. No guarding, no rebound. No masses EXTREMITIES: Normal range of motion, no edema. No clubbing or cyanosis. No cords, erythema, or tenderness NEUROLOGICAL: Normal speech, cranial nerves intact, negative pronator drift, 4/ 5 strength in RLE, 5/5 strength in other extremities, normal sensation to light touch in all 4 extremities, normal cerebellar exam, limping gait favoring RLE, normal reflexes and tone SKIN: Warm, Dry, normal turgor, no rashes or lesions noted. - Medical Decision Making 06/29/17 23:36 77yo F hx CVA (no residual deficits), Afib on coumadin, HTN, Breast CA s/p mastectomy, Hyperlipidemia, Murmur, COPD presents to the emergency department with generalized weakness, and 1 week of right lower extremity weakness. Vitals unremarkable. On exam patient has 4 out of 5 strength in the right lower extremity, with more weakness proximally than distally. Likely CVA. CT head reveals multiple older looking infarcts but no acute infarct. Patient will require an MRI for further evaluation, however does not know if her pacemaker is MRI safe. Patient unable to locate her MRI cart in her wallet. Her daughter Lisa will attempt to locate the card at home, patient has not had any MRIs recently. Will admit the patient for stroke workup. 06/30/17 00:12 Case discussed in detail with admitting physician including history, physical exam and ancillary studies. Admitting physician has assumed care for the patient, will follow all pending diagnostics and will complete the evaluation and treatment. <Eloina Buchanan - Last Filed: 06/30/17 00:54>
--- NOTE | 2017-06-29 23:52 | HP ---
Admitting History and Physical - Primary Care Physician PCP: Kristina Martinez - Admission Chief Complaint: Generalized Weakness, Fatigue, R- Ankle Pain History of Present Illness: This is a 77 y/o woman from home. Who presents to the ED with generalized weakness, fatigue, loss of appetite and R- ankle pain x 1 week. Patient reports "not feeling right". She reports having low energy, no appetite with weight loss. Patient reports walking outside, she tripped twisting her ankle. She reports being able to walk on it, but now tenderness to her R- ankle without swelling. Patient reports having insomnia, racing thoughts with moments of forgetfulness. Patient denies being depressed, suicidal or having homicidal ideations. Patient denies numbness, tingling, or facial droop. Patient denies fever, chills, cough, dizziness, FORRESTER, CP, AP, N/V/D, constipation, dysuria. History Source: Patient Limitations to Obtaining History: No Limitations - Past Medical History [employer]: Yes: CVA, TIA Cardiovascular: Yes: AFIB, HTN, Hyperlipdemia, Murmur Pulmonary: Yes: COPD Heme/Onc: Yes: Cancer (BREAST) - Past Surgical History Past Surgical History: Yes: Mastectomy (Left), Permanent Pacemaker - Smoking History Smoking history: Never smoked Have you smoked in the past 12 months: No Aproximately how many cigarettes per day: 4 - Alcohol/Substance Use Hx Alcohol Use: No History of Substance Use: reports: None - Social History Usual Living Arrangement: Yes: Alone ADL: Independent History of Recent Travel: No Home Medications - Allergies Allergies/Adverse Reactions: Allergies Allergy/AdvReac Type Severity Reaction Status Date / Time No Known Drug Allergies Allergy Verified 06/29/17 19:05 - Home Medications Home Medications: Ambulatory Orders Atorvastatin Ca [Lipitor] 20 mg PO HS 12/29/13 Metoprolol Tartrate [Lopressor -] 100 mg PO BID 12/29/13 [place]-3 Fatty Acids [[place]-3] 1,000 mg PO DAILY 12/29/13 Ranitidine [Zantac -] 150 mg PO DAILY 12/29/13 Levothyroxine [Synthroid -] 88 mcg PO DAILY 11/17/14 Cholecalciferol (Vitamin D3) [Vitamin D -] 2,000 unit PO DAILY 08/10/16 Digoxin [Lanoxin -] 0.125 mg PO DAILY 08/10/16 Warfarin Sodium 3 mg PO 1800 08/10/16 Levothyroxine [Synthroid -] 88 mcg PO DAILY@0700 tablet 08/13/16 Family Disease History - Family Disease History Family Disease History: CA: Daughter (41) Review of Systems - Review of Systems Constitutional: reports: Lethargy, Loss of Appetite, Malaise, Unintentional Wgt. Loss, Weakness Eyes: reports: No Symptoms HENT: reports: No Symptoms Neck: reports: No Symptoms Cardiovascular: reports: No Symptoms Respiratory: reports: No Symptoms Gastrointestinal: reports: No Symptoms Genitourinary: reports: No Symptoms Breasts: reports: No Symptoms Reported Musculoskeletal: reports: Extremity Pain (R-ankle) Integumentary: reports: No Symptoms Neurological: reports: Confusion, Incoordination Endocrine: reports: No Symptoms Hematology/Lymphatic: reports: No Symptoms Psychiatric: reports: Altered Sleep Pattern, Other (Racing thoughts) Physical Examination Vital Signs: Vital Signs Temperature 97.8 F 06/29/17 22:36 Pulse Rate 75 06/29/17 22:36 Respiratory Rate 18 06/29/17 22:36 Blood Pressure 160/77 06/29/17 22:36 O2 Sat by Pulse Oximetry (%) 99 06/29/17 22:36 Constitutional: Yes: No Distress, Calm, Thin Eyes: Yes: WNL, Conjunctiva Clear, EOM Intact, PERRL HENT: Yes: WNL, Atraumatic, Normocephalic Neck: Yes: WNL, Supple, Trachea Midline Cardiovascular: Yes: Pulse Irregular, Murmur, S1, S2 Respiratory: Yes: WNL, Regular, CTA Bilaterally Gastrointestinal: Yes: WNL, Normal Bowel Sounds, Soft ...Rectal Exam: Yes: Deferred Renal/: Yes: WNL Breast(s): Yes: Left (Mastectomy) Musculoskeletal: Yes: Other (right lateral ankle tenderness to palpation) Edema: No Peripheral Pulses WNL: Yes Integumentary: Yes: WNL Neurological: Yes: Confusion ...Motor Strength: WNL Psychiatric: Yes: WNL, Alert, Oriented Labs: CBC, BMP 06/29/17 20:30 06/29/17 20:30 Laboratory Results - last 24 hr 06/29/17 06/29/17 06/29/17 20:30 20:30 20:30 WBC 8.2 D RBC 4.21 Hgb 12.2 Hct 36.6 MCV 86.8 MCH 28.9 MCHC 33.3 RDW 15.0 Plt Count 186 D MPV 8.3 Neutrophils % 82.1 Lymphocytes % 8.9 D Monocytes % 7.0 Eosinophils % 1.4 Basophils % 0.6 PT with INR 46.70 H INR 4.13 H* D Sodium 140 Potassium 4.5 Chloride 104 Carbon Dioxide 30 Anion Gap 6 L BUN 27 H Creatinine 1.0 Creat Clearance w eGFR 54.05 Random Glucose 95 Calcium 10.2 H Total Bilirubin 0.7 D AST 72 H ALT 23 Alkaline Phosphatase 287 H Creatine Kinase Creatine Kinase Index CK-MB (CK-2) Troponin I Total Protein 7.6 Albumin 3.3 L Urine Color Urine Appearance Urine pH Ur Specific [place] Urine Protein Urine Glucose (UA) Urine Ketones Urine Blood Urine Nitrite Urine Bilirubin Urine Urobilinogen Ur Leukocyte Esterase Urine WBC (Auto) Urine RBC (Auto) Ur Epithelial Cells Urine Bacteria Hyaline Casts Urine Mucus Digoxin 1.6626 06/29/17 06/29/17 20:30 23:00 WBC RBC Hgb Hct MCV MCH MCHC RDW Plt Count MPV Neutrophils % Lymphocytes % Monocytes % Eosinophils % Basophils % PT with INR INR Sodium Potassium Chloride Carbon Dioxide Anion Gap BUN Creatinine Creat Clearance w eGFR Random Glucose Calcium Total Bilirubin AST ALT Alkaline Phosphatase Creatine Kinase 169 Creatine Kinase Index 0.9 CK-MB (CK-2) 1.610 Troponin I 0.03 Total Protein Albumin Urine Color Yellow Urine Appearance Slcloudy Urine pH 5.0 Ur Specific [place] 1.016 Urine Protein 2+ H Urine Glucose (UA) Negative Urine Ketones Trace H Urine Blood Negative Urine Nitrite Negative Urine Bilirubin Negative Urine Urobilinogen Negative Ur Leukocyte Esterase Negative Urine WBC (Auto) 4 Urine RBC (Auto) 5 Ur Epithelial Cells Few Urine Bacteria Rare Hyaline Casts 4 Urine Mucus Many Digoxin Intake & Output 06/27/17 06/28/17 06/29/17 06/30/17 23:59 23:59 23:59 23:59 Weight 54.431 kg Imaging - Results Chest X-ray: Image Reviewed X-ray: Pending EKG: Image Reviewed (Atrial Ventricular Paced Rhythm Prolonged AV Conduction) Problem List - Problems (1) Weakness Code(s): R53.1 - WEAKNESS (2) Supratherapeutic INR Code(s): R79.1 - ABNORMAL COAGULATION PROFILE (3) CVA (cerebral infarction) Code(s): I63.9 - CEREBRAL INFARCTION, UNSPECIFIED Qualifiers: Cerebral infarction mechanism: unspecified mechanism Qualified Code(s): I63.9 - Cerebral infarction, unspecified (4) A-fib Code(s): I48.91 - UNSPECIFIED ATRIAL FIBRILLATION Qualifiers: Atrial fibrillation type: chronic Qualified Code(s): I48.2 - Chronic atrial fibrillation (5) Hypothyroid Code(s): E03.9 - HYPOTHYROIDISM, UNSPECIFIED (6) HTN (hypertension) Code(s): I10 - ESSENTIAL (PRIMARY) HYPERTENSION (7) Insomnia Code(s): G47.00 - INSOMNIA, UNSPECIFIED (8) Pacemaker Code(s): Z95.0 - PRESENCE OF CARDIAC PACEMAKER (9) Breast cancer, left Code(s): C50.912 - MALIGNANT NEOPLASM OF UNSPECIFIED SITE OF LEFT FEMALE BREAST (10) Decreased appetite Code(s): R63.0 - ANOREXIA (11) DVT prophylaxis Code(s): [id number] - Assessment/Plan This is a 77 y/o woman who presents to the ED with weakness, fatigue and decreased appetite. Admitted for TIA r/o CVA, Generalized Weakness. Plan: 1. Neurology: TIA r/o CVA Hx CVA (no residual) Admit to Tele Continue cardiac monitoring Neuro Consult Swallow Eval Carotid Doppler Echo Swallow Eval NPO CT- neg acute ICH, old infarcts Fall Precautions 2. Cardiology: Afib HTN HLD Pacemaker [id number] EKG- Atrial Ventricular Paced Hold Coumadin 2/2 INR 4.13 Daily INR Pacemaker- Medtronic( implanted,01/14/10) 3. Heme/Onc: Supratherapuetic INR- see above L- Breast Ca- s/p mastectomy, no current chemo, RT, in remission per pt 4. Pulmonology: COPD Duonebs Continue med 5. Ortho: Right Ankle Pain R-Ankle Xray pending- r/o FX Tylenol prn 6.Endocrinology: Loss of Appetite Hypothyroid- continue levothyroxine RD consult Albumin 3.3 Consider ensure supplements when diet resumed 7. Psych: Anxiety Insomnia Consider Psych consult TSH level 8. FEN - D51/2NS@42cc/hr - Replete lytes prn - NPO 9. DVT ppx - OOB - SCDs Code Status: Full Code Dispo: Observation Visit type - Emergency Visit Emergency Visit: Yes ED Registration Date: 06/29/17 Care time: The patient presented to the Emergency Department on the above date and was hospitalized for further evaluation of their emergent condition. - New Patient This patient is new to me today: Yes Date on this admission: 06/29/17 - Critical Care Critical Care patient: No Hospitalist Screening - Colonoscopy Questionnaire Colonoscopy Questionnaire: Colonoscopy Questionnaire - Patient: 50 - 75 years old and never had a screening colonoscopy: No History of colon or rectal polyps, or CA: No History of IBD, Crohn's disease or UC: No History of abdominal radiation therapy as a child: No - Relative: 1 with colon or rectal CA, or polyps at age 60 or younger: No Colon or rectal CA diagnosed at age 45 or younger: No Multiple relatives with colon or rectal CA: No - Outcome: Screening Result: Negative Screen
[2017-06-30 09:01] LABS: BASO % 0.9 % (0-2.0); EOS % 1.6 % (0-4.5); HEMATOCRIT 33.8 % (32.4-45.2); HEMOGLOBIN 11.2 GM/dL (10.7-15.3); LYMPH % 15.4 % (8-40); MCH 28.6 pg (25.7-33.7); MCHC 33.2 g/dl (32.0-36.0); MEAN CELL VOLUME 86.4 fl (80-96); MEAN PLT VOLUME 8.4 fl (7.5-11.1); MONO % 9.2 % (3.8-10.2); NEUT % 72.9 % (42.8-82.8); PLATELET COUNT 176 K/MM3 (134-434); RBC 3.91 M/mm3 (3.60-5.2); RDW 15.2 % (11.6-15.6); WHITE BLOOD COUNT 6.2 K/mm3 (4.0-10.0)
[2017-06-30] MEDS ORDERED: ALBUTEROL SO4 2.5/IPRATROPIUM 0.5 INH SOL 3 ML VIAL.NEB. NEB PRN (09:04)
[2017-06-30 09:13] LABS: PROTHROMBIN TIME (PATIENT) 49.8 SEC (9.98-11.88)
[2017-06-30 09:32] LABS: ANION GAP 8 (8-16); BLOOD UREA NITROGEN 25 mg/dL (7-18); CALCIUM 9.8 mg/dL (8.5-10.1); CHLORIDE 106 mmol/L (98-107); CO2 27 mmol/L (21-32); CREATININE 0.8 mg/dL (0.55-1.02); GLUCOSE,RANDOM 86 mg/dL (74-106); POTASSIUM 4.7 mmol/L (3.5-5.1); SODIUM 141 mmol/L (136-145)
[2017-06-30 09:52] LABS: INR 4.41 (0.82-1.09)
[2017-06-30] MEDS: LEVOTHYROXINE NA 88 MCG TABLET (FP) PO SCH (10:30)
[2017-06-30] MEDS ORDERED: METOPROLOL TARTRATE 50 MG TABLET (FP) ONE (10:34)
[2017-06-30] MEDS: DIGOXIN 0.125 MG TABLET (FP) PO SCH (10:35)
[2017-06-30] MEDS: METOPROLOL TARTRATE 50 MG TABLET (FP) PO SCH ×2 (10:35→22:20)
[2017-06-30] MEDS: DEXTROSE 5%-0.45% SALINE 1,000 ML IV SCH (10:35)
--- NOTE | 2017-06-30 10:55 | PN ---
Progress Note, Physician - Current Medication List Current Medications: Active Medications Albuterol/Ipratropium (Duoneb -) 1 amp NEB Q6H PRN PRN Reason: SHORTNESS OF BREATH Atorvastatin Calcium (Lipitor -) 20 mg PO HS [facility] Digoxin (Lanoxin -) 0.125 mg PO DAILY [facility] Last Admin: 06/30/17 10:35 Dose: 0.125 mg Dextrose/Sodium Chloride (D5-1/2ns -) 1,000 mls @ 42 mls/hr IV ASDIR [facility] Last Admin: 06/30/17 10:35 Dose: 42 mls/hr Levothyroxine Sodium (Synthroid -) 88 mcg PO DAILY@0700 [facility] Last Admin: 06/30/17 10:30 Dose: 88 mcg Metoprolol Tartrate (Lopressor -) 100 mg PO BID [facility] Last Admin: 06/30/17 10:35 Dose: 100 mg - Objective Vital Signs: Vital Signs Temperature 98.3 F 06/30/17 06:59 Pulse Rate 86 06/30/17 10:30 Respiratory Rate 19 06/30/17 06:59 Blood Pressure 155/85 06/30/17 10:30 O2 Sat by Pulse Oximetry (%) 100 06/30/17 10:30 Labs: CBC, BMP 06/30/17 08:50 06/30/17 08:50 INR, PTT INR 4.41 (0.82-1.09) H* 06/30/17 08:50 Problem List - Problems (1) CVA (cerebral infarction) Assessment/Plan: This is a 77 y/o woman who presents to the ED with weakness, fatigue and decreased appetite. Admitted for TIA r/o CVA, Generalized Weakness. TIA r/o CVA Hx CVA (no residual) Admit to Tele Continue cardiac monitoring Neuro Consult Swallow Eval Carotid Doppler Echo Swallow Eval NPO CT- neg acute ICH, old infarcts Fall Precautions Code(s): I63.9 - CEREBRAL INFARCTION, UNSPECIFIED Qualifiers: Cerebral infarction mechanism: unspecified mechanism Qualified Code(s): I63.9 - Cerebral infarction, unspecified (2) Decreased appetite Assessment/Plan: 6.Endocrinology: Loss of Appetite Hypothyroid- continue levothyroxine RD consult Albumin 3.3 Consider ensure supplements when diet resumed TSH Code(s): R63.0 - ANOREXIA (3) Hypothyroid Code(s): E03.9 - HYPOTHYROIDISM, UNSPECIFIED (4) Supratherapeutic INR Assessment/Plan: HOLD COUMADIN FOLLOW INR Code(s): R79.1 - ABNORMAL COAGULATION PROFILE (5) A-fib Assessment/Plan: Pacemaker [id number] EKG- Atrial Ventricular Paced Hold Coumadin 2/2 INR 4.13 Daily INR Pacemaker- Medtronic( implanted,01/14/10) Code(s): I48.91 - UNSPECIFIED ATRIAL FIBRILLATION Qualifiers: Atrial fibrillation type: chronic Qualified Code(s): I48.2 - Chronic atrial fibrillation (6) Weakness Assessment/Plan: PT AWAIT W/U Code(s): R53.1 - WEAKNESS Assessment/Plan 5. Ortho: Right Ankle Pain R-Ankle Xray pending- r/o FX Tylenol prn
[2017-06-30] MEDS: ATORVASTATIN CA 20 MG TABLET (FP) PO SCH (22:20)
[2017-07-01] MEDS: DEXTROSE 5%-0.45% SALINE 1,000 ML IV SCH ×2 (06:32→09:17)
[2017-07-01] MEDS: LEVOTHYROXINE NA 88 MCG TABLET (FP) PO SCH (06:32)
[2017-07-01 07:08] LABS: BASO % 0.8 % (0-2.0); EOS % 3.9 % (0-4.5); HEMATOCRIT 34.4 % (32.4-45.2); HEMOGLOBIN 11.3 GM/dL (10.7-15.3); LYMPH % 13.3 % (8-40); MCH 28.5 pg (25.7-33.7); MCHC 32.9 g/dl (32.0-36.0); MEAN CELL VOLUME 86.6 fl (80-96); MEAN PLT VOLUME 8.5 fl (7.5-11.1); MONO % 10.3 % (3.8-10.2); NEUT % 71.7 % (42.8-82.8); PLATELET COUNT 176 K/MM3 (134-434); RBC 3.97 M/mm3 (3.60-5.2); RDW 14.9 % (11.6-15.6); WHITE BLOOD COUNT 6.2 K/mm3 (4.0-10.0)
[2017-07-01 07:40] LABS: INR 3.6 (0.82-1.09); PROTHROMBIN TIME (PATIENT) 40.7 SEC (9.98-11.88)
[2017-07-01 08:00] LABS: CHLORIDE 105 mmol/L (98-107); POTASSIUM 4.4 mmol/L (3.5-5.1); SODIUM 139 mmol/L (136-145)
[2017-07-01 08:16] LABS: ALBUMIN 2.6 g/dl (3.4-5.0); ALK PHOS 230 U/L (45-117); ANION GAP 7 (8-16); BILIRUBIN,TOTAL 0.9 mg/dL (0.2-1.0); BLOOD UREA NITROGEN 21 mg/dL (7-18); CALCIUM 9.4 mg/dL (8.5-10.1); CO2 27 mmol/L (21-32); CREATININE 0.8 mg/dL (0.55-1.02); GLUCOSE,RANDOM 88 mg/dL (74-106); SGOT/AST 43 U/L (15-37); SGPT/ALT 17 U/L (12-78); TOT PROT 6.2 g/dl (6.4-8.2)
[2017-07-01] MEDS: METOPROLOL TARTRATE 50 MG TABLET (FP) PO SCH ×2 (09:18→21:45)
[2017-07-01] MEDS: DIGOXIN 0.125 MG TABLET (FP) PO SCH (09:18)
--- NOTE | 2017-07-01 10:52 | CONSULT ---
Admitting History and Physical - Primary Care Physician PCP: Kristina Martinez - Admission History of Present Illness: This is a 77 y/o woman who presents to the ED with weakness, fatigue and decreased appetite. Admitted for TIA r/o CVA, Generalized Weakness. History Source: Patient, Family Member, Medical Record Limitations to Obtaining History: No Limitations - Past Medical History AQUATIC BIOLOGIST: Yes: CVA, TIA Cardiovascular: Yes: AFIB, HTN, Hyperlipdemia, Murmur Pulmonary: Yes: COPD Heme/Onc: Yes: Cancer (BREAST) - Past Surgical History Past Surgical History: Yes: Mastectomy (Left), Permanent Pacemaker - Smoking History Smoking history: Never smoked Have you smoked in the past 12 months: No Aproximately how many cigarettes per day: 4 - Alcohol/Substance Use Hx Alcohol Use: No History of Substance Use: reports: None - Social History ADL: Independent History of Recent Travel: No History - Admission Reason For Visit: CEREBRAL INFARCTION - Diagnostics X-ray: Report Reviewed CT Scan: Report Reviewed - General Mental Status: Alert and Oriented, Awake and Alert, Able to Follow Commands Attention: Intact Ability to Follow Directions: Good Head/Neck Control: WFL - Hearing Hearing: Normal Speech Evaluation - Communication Primary Language: BELARUSIAN Communication: Yes: Within Normal Limits Oral Expression Ability: Yes: No Impairment - Speech Production Able to Make Needs Known: Yes: WNL Intelligibility: Yes: WNL - Speech Characteristics Voice Loudness: Normal Voice Pitch: Yes: Normal Voice Phonatory-based Quality: Yes: Normal Speech Pattern: Normal Speech Clarity: < 100% Nasal Resonance: Normal Articulation: Yes: Precise Rate of Speech: Intact - Language/Auditory Comprehension Follows: Yes: 2 Stage Simple Commands - Language/Verbal Expression Able to Respond to Simple Queries: Yes: WNL Able to Communicate Wants and Needs: Yes: WNL Functional Communication Status: Yes: WNL - Memory/Perception prison Memory: Yes: WNL Short Term Memory: Yes: WNL - Swallow Evaluation/Bedside Assessment Current Nutritional Intake: Regular, Thin Liquids Oral Secretions: Yes: WFL Dentition: Yes: Missing Teeth (lower), Dental Appliance Upper (at home. Upper edentulous but one tooth) Facial Symmetry at Rest: Symmetrical Facial Symmetry on Retraction: Symmetrical Facial Movement: Controlled Sensation: Normal Against Resistance Opening: Normal Against Resistance Closing: Normal Pucker Lips: Normal Smile: Normal Lingual Movement: Normal, Symmetric Lingual Speed of Movement: Normal Lingual Movement Strgth Against Opposition: Normal Lingual Movement Characteristics: Normal Velopharyngeal Movement: Normal Laryngeal Elevation: WFL Laryngeal Movement: Able to Palpate Rate of Intake: WFL Bolus Size: WFL Chewing: WFL Oral Prep Time: WFL A-P Transit: WFL Pocketing: None Timing of Swallow: WFL Coughing/Throat Clear: No Change in Voice: No Recommendations - Speech Evaluation, Impression/Plan Impression: Speech production, language, cognition ,swallowing intact - Dysphagia Impressions/Plan Swallowing Skills: [facility] Dysphagia Impressions: No Impairment *Silent aspiration: cannot be R/O at bedside Recommendations: Other (Bring dentures from home, for ease of chewing.) - Recommendations Diet Consistency: Regular Medication Administration: Whole with water Liquids: Thin Liquids
--- NOTE | 2017-07-01 13:15 | PN ---
Progress Note, Physician Chief Complaint: AWAKE ALERT THIS IS M FIRST ENCONTER WITH THIS PATIENT DENIES HEADACHE CP OR SOB DENIES - Current Medication List Current Medications: Active Medications Albuterol/Ipratropium (Duoneb -) 1 amp NEB Q6H PRN PRN Reason: SHORTNESS OF BREATH Atorvastatin Calcium (Lipitor -) 20 mg PO HS [facility] Last Admin: 06/30/17 22:20 Dose: 20 mg Digoxin (Lanoxin -) 0.125 mg PO DAILY [facility] Last Admin: 07/01/17 09:18 Dose: 0.125 mg Dextrose/Sodium Chloride (D5-1/2ns -) 1,000 mls @ 42 mls/hr IV ASDIR [facility] Last Admin: 07/01/17 09:17 Dose: Not Given Levothyroxine Sodium (Synthroid -) 88 mcg PO DAILY@0700 [facility] Last Admin: 07/01/17 06:32 Dose: 88 mcg Metoprolol Tartrate (Lopressor -) 100 mg PO BID [facility] Last Admin: 07/01/17 09:18 Dose: 100 mg - Objective Vital Signs: Vital Signs Temperature 98.1 F 07/01/17 10:00 Pulse Rate 72 07/01/17 10:00 Respiratory Rate 18 07/01/17 10:00 Blood Pressure 138/78 07/01/17 10:00 O2 Sat by Pulse Oximetry (%) 96 06/30/17 23:00 Constitutional: Yes: No Distress Eyes: Yes: WNL HENT: Yes: WNL Neck: Yes: WNL Cardiovascular: Yes: Pulse Irregular Respiratory: Yes: WNL Gastrointestinal: Yes: WNL Genitourinary: Yes: WNL Musculoskeletal: Yes: Muscle Weakness Extremities: Yes: WNL Edema: No Peripheral Pulses WNL: Yes Integumentary: Yes: WNL Wound/Incision: Yes: Clean/Dry Neurological: Yes: Pre-Existing Deficit ...Motor Strength: LLE, RLE Psychiatric: Yes: WNL Labs: CBC, BMP 07/01/17 06:42 07/01/17 06:42 INR, PTT INR 3.60 (0.82-1.09) H 07/01/17 06:42 Problem List - Problems (1) CVA (cerebral infarction) Code(s): I63.9 - CEREBRAL INFARCTION, UNSPECIFIED Qualifiers: Cerebral infarction mechanism: unspecified mechanism Qualified Code(s): I63.9 - Cerebral infarction, unspecified (2) DVT prophylaxis Code(s): [id number] - (3) Decreased appetite Code(s): R63.0 - ANOREXIA (4) Hypothyroid Code(s): E03.9 - HYPOTHYROIDISM, UNSPECIFIED (5) Supratherapeutic INR Code(s): R79.1 - ABNORMAL COAGULATION PROFILE (6) A-fib Code(s): I48.91 - UNSPECIFIED ATRIAL FIBRILLATION Qualifiers: Atrial fibrillation type: chronic Qualified Code(s): I48.2 - Chronic atrial fibrillation (7) Breast cancer Code(s): C50.919 - MALIGNANT NEOPLASM OF UNSP SITE OF UNSPECIFIED FEMALE BREAST Qualifiers: Breast location: central portion of breast Laterality: left (8) Pacemaker Code(s): Z95.0 - PRESENCE OF CARDIAC PACEMAKER Assessment/Plan PT EVAL NEUROLOGY CONSULT ON STATIN THERAPY INR SUPRATHERAPEUTIC WILL RESTART SWALLOW EVAL ON TELE NO ALARMS
--- NOTE | 2017-07-01 13:17 | PN ---
Progress Note (short form) - Note Progress Note: ADDENDUM: ALK PHS ELEVATED ON STATIN THERAPY CHECK SONO OF LIVER HEP PANEL Problem List - Problems (1) CVA (cerebral infarction) Code(s): I63.9 - CEREBRAL INFARCTION, UNSPECIFIED Qualifiers: Cerebral infarction mechanism: unspecified mechanism Qualified Code(s): I63.9 - Cerebral infarction, unspecified (2) DVT prophylaxis Code(s): [id number] - (3) Decreased appetite Code(s): R63.0 - ANOREXIA (4) Hypothyroid Code(s): E03.9 - HYPOTHYROIDISM, UNSPECIFIED (5) Supratherapeutic INR Code(s): R79.1 - ABNORMAL COAGULATION PROFILE (6) A-fib Code(s): I48.91 - UNSPECIFIED ATRIAL FIBRILLATION Qualifiers: Atrial fibrillation type: chronic Qualified Code(s): I48.2 - Chronic atrial fibrillation (7) Breast cancer Code(s): C50.919 - MALIGNANT NEOPLASM OF UNSP SITE OF UNSPECIFIED FEMALE BREAST Qualifiers: Breast location: central portion of breast Laterality: left (8) Pacemaker Code(s): Z95.0 - PRESENCE OF CARDIAC PACEMAKER
--- NOTE | 2017-07-01 17:28 | EKG ---
Test Reason : Blood Pressure : / mmHG Vent. Rate : 078 BPM Atrial Rate : 078 BPM P-R Int : 244 ms QRS Dur : 158 ms QT Int : 372 ms P-R-T Axes : 104 079 250 degrees QTc Int : 424 ms Atrial-sensed ventricular-paced rhythm with prolonged AV conduction ABNORMAL ECG WHEN COMPARED WITH ECG OF 10-AUG-2016 14:05, VENT. RATE HAS INCREASED BY 13 BPM Confirmed by NAT SALAS MD ([id number]) on 07/01/2017 5:28:34 PM Referred By: Confirmed By:NAT SALAS MD
--- NOTE | 2017-07-01 17:28 | EKG ---
Test Reason : Blood Pressure : / mmHG Vent. Rate : 069 BPM Atrial Rate : 069 BPM P-R Int : 328 ms QRS Dur : 156 ms QT Int : 398 ms P-R-T Axes : 055 086 237 degrees QTc Int : 426 ms Atrial-sensed ventricular-paced rhythm with prolonged AV conduction ABNORMAL ECG WHEN COMPARED WITH ECG OF 29-JUN-2017 19:29, VENT. RATE HAS DECREASED BY 9 BPM Confirmed by JOSUE REHMAN, NAT ([id number]) on 07/01/2017 5:27:47 PM Referred By: Confirmed By:NAT SALAS MD
--- NOTE | 2017-07-01 19:32 | CONSULT ---
Consult - text type - Consultation Consultation Note: NEUROLOGY CONSULTATION is greatly appreciated: This 77 yo RH woman with h/o HTN, Chol, Hypothyroidism, ASHD, AFib, CHF is s/p PPM. She lives alone with 2 of her 4 children [address]. Independent in all ADL's. Walks without cane or walker. Maintained on atorvastatin, metoprolol, ranitidine, L-Thyroxine (88ug), Digoxin (0.125 Mg) and Coumadin. Seen by me 12/30/13 with multiple old CVA's and new Left CVA- suggesting multiple emboli. ! 1/2 weeks ago she stubbed her toe stepping over a curb. Now admitted after few days of feeling unwell, decreased appetite. She denies new weakness, change in gait, speech or vision. Now fells better. CT of head (reviewed):Chronic, B/L frontal and occipital and left parietal cortical infarcts with moderate diffuse atrophy. Unchanged from 2015. Labs: Dig= 1.663 urine WBC's; INR=4.13/4.411 MANN: No bruits, s/p PPM right pectoralis, Cor reg? No evidence of external head trauma. NEURO: Awake, alert, cooperative. Mild OMS. CN II-XII: Normal Motor: No drift. No cogwheeling, Reduced BRITTANY's. Brisk reflexes except absent AJ's No FTN dystaxia Decreased vibration feet Gait: Sl. wide-based and shuffling. IMP: Mild-mod, B/L cerebral dysfunction, possibly on a multiinfarct basis. Mod. Diabetic peripheral neuropathy. Admission more like due to Toxic-metabolic encephalopathy than to a vascular event such as TIA (but annot fully exclude)> SUGGEST: Continue coumadin to INR 2.5-3.0 Out patient carotid duplex doppler Out patient PT and neuro follow-up. Thank you very much, Louis Hernandez MD
[2017-07-01] MEDS ORDERED: PT OWN MED DRAWER 7, Y5N ONE (21:39)
[2017-07-01] MEDS: ATORVASTATIN CA 20 MG TABLET (FP) PO SCH (21:44)
--- NOTE | 2017-07-01 21:52 | PDOC ---
NIH Stroke Scale - Last Known Well Date/Time & Onset Date Last Known Well: 06/23/17 (Unclear but at least one week prior) - Initial Evaluation Level of consciousness: Alert Ask patient the month and their age: Answers both correctly Ask patient to open & close eyes; make fist and let go: Obeys both correctly Best gaze (horizontal eye movement): Normal Visual field testing: No visual field loss Facial paresis (Show teeth/raise eyebrows/close eyes tight): Normal symmetrical movement Motor Function: Left Arm: Normal Motor Function: Right Arm: Normal (extends arm 90 (or 45) degrees for 10 seconds without drift Motor Function: Left Leg: Normal (extends leg 30 degrees for 5 seconds without drift) Motor Function: Right Leg: Normal (extends leg 30 degrees for 5 seconds without drift) Limb Ataxia: Present in one limb Sensory(Use pinprick test arms,legs,trunk,face/side to side): Normal Best language (Describe picture, name items, read sentences): No Aphasia Dysarthria (read several words): Normal articulation Extinction and Inattention: No abnormality - Total Score NIH Stroke Scale Score: 1
[2017-07-02 02:14] LABS: URINE APPEARANCE CLEAR; URINE BILIRUBIN NEGATIVE (<2.0 mg/dL); URINE BLOOD NEGATIVE (NEGATIVE); URINE COLOR STRAW; URINE GLUCOSE (UA) NEGATIVE (NEGATIVE); URINE KETONE NEGATIVE (NEGATIVE); URINE LEUK ESTERASE NEGATIVE (NEGATIVE); URINE NITRITE NEGATIVE (NEGATIVE); URINE PROTEIN NEGATIVE (NEGATIVE); URINE UROBILINOGEN NEGATIVE mg/dL (0.2-1.0)
[2017-07-02] MEDS: LEVOTHYROXINE NA 88 MCG TABLET (FP) PO SCH (06:14)
[2017-07-02 07:33] LABS: ANION GAP 8 (8-16); BLOOD UREA NITROGEN 22 mg/dL (7-18); CALCIUM 9.6 mg/dL (8.5-10.1); CHLORIDE 103 mmol/L (98-107); CO2 28 mmol/L (21-32); GLUCOSE,RANDOM 85 mg/dL (74-106); MAGNESIUM 1.7 mg/dL (1.8-2.4); POTASSIUM 3.8 mmol/L (3.5-5.1); SODIUM 139 mmol/L (136-145)
[2017-07-02 07:44] LABS: INR 2.15 (0.82-1.09); PROTHROMBIN TIME (PATIENT) 24.3 SEC (9.98-11.88)
[2017-07-02 08:04] LABS: HEMATOCRIT 36.4 % (32.4-45.2); HEMOGLOBIN 11.9 GM/dL (10.7-15.3); MCH 28.4 pg (25.7-33.7); MCHC 32.8 g/dl (32.0-36.0); MEAN CELL VOLUME 86.7 fl (80-96); MEAN PLT VOLUME 8.5 fl (7.5-11.1); PLATELET COUNT 184 K/MM3 (134-434); WHITE BLOOD COUNT 5.8 K/mm3 (4.0-10.0)
[2017-07-02] MEDS: METOPROLOL TARTRATE 50 MG TABLET (FP) PO SCH ×2 (09:11→21:05)
[2017-07-02] MEDS: DIGOXIN 0.125 MG TABLET (FP) PO SCH (09:11)
--- NOTE | 2017-07-02 09:17 | PN ---
Progress Note, Physician History of Present Illness: feels better - Current Medication List Current Medications: Active Medications Albuterol/Ipratropium (Duoneb -) 1 amp NEB Q6H PRN PRN Reason: SHORTNESS OF BREATH Atorvastatin Calcium (Lipitor -) 20 mg PO HS [facility] Last Admin: 07/01/17 21:44 Dose: 20 mg Cholecalciferol (Vitamin D3 -) 2,000 unit PO DAILY [facility] Digoxin (Lanoxin -) 0.125 mg PO DAILY [facility] Last Admin: 07/02/17 09:11 Dose: 0.125 mg Levothyroxine Sodium (Synthroid -) 88 mcg PO DAILY@0700 [facility] Last Admin: 07/02/17 06:14 Dose: 88 mcg Metoprolol Tartrate (Lopressor -) 100 mg PO BID [facility] Last Admin: 07/02/17 09:11 Dose: 100 mg Ranitidine HCl (Zantac -) 150 mg PO DAILY [facility] Warfarin Sodium (Coumadin -) 2 mg PO DAILY@1800 [facility] - Objective Vital Signs: Vital Signs Temperature 98.3 F 07/02/17 06:00 Pulse Rate 75 07/02/17 09:11 Respiratory Rate 18 07/02/17 06:00 Blood Pressure 149/73 07/02/17 06:00 O2 Sat by Pulse Oximetry (%) 97 07/01/17 23:00 Neck: Yes: Supple Cardiovascular: Yes: S1, S2 Respiratory: Yes: Regular, CTA Bilaterally Gastrointestinal: Yes: Normal Bowel Sounds, Soft Labs: CBC, BMP 07/02/17 05:35 07/02/17 05:35 INR, PTT INR 2.15 (0.82-1.09) H D 07/02/17 05:35 Problem List - Problems (1) CVA (cerebral infarction) Assessment/Plan: This is a 77 y/o woman who presents to the ED with weakness, fatigue and decreased appetite. Admitted for TIA r/o CVA, Generalized Weakness. TIA r/o CVA--ct neg for acute Hx CVA (no residual) Admit to Tele Continue cardiac monitoring Neuro Consult noted Swallow Eval noted Carotid Doppler Echo -reviewed CT- neg acute ICH, old infarcts Fall Precautions pt eval pending Code(s): I63.9 - CEREBRAL INFARCTION, UNSPECIFIED Qualifiers: Cerebral infarction mechanism: unspecified mechanism Qualified Code(s): I63.9 - Cerebral infarction, unspecified (2) Decreased appetite Assessment/Plan: Loss of Appetite--improving Hypothyroid- continue levothyroxine RD consult Albumin 3.3 Consider ensure supplements when diet resumed TSH--noted Code(s): R63.0 - ANOREXIA (3) Hypothyroid Code(s): E03.9 - HYPOTHYROIDISM, UNSPECIFIED (4) Supratherapeutic INR Assessment/Plan: RESUME COUMADIN FOLLOW INR Code(s): R79.1 - ABNORMAL COAGULATION PROFILE (5) A-fib Assessment/Plan: Pacemaker [id number] 6 EKG- Atrial Ventricular Paced Hold Coumadin 2/2 INR 4.13 Daily INR Pacemaker- [employer]( implanted,01/14/10) Code(s): I48.91 - UNSPECIFIED ATRIAL FIBRILLATION Qualifiers: Atrial fibrillation type: chronic Qualified Code(s): I48.2 - Chronic atrial fibrillation (6) Weakness Assessment/Plan: PT PENDING AWAIT W/U Code(s): R53.1 - WEAKNESS Assessment/Plan 5. Ortho: Right Ankle Pain R-Ankle Xray -neg Tylenol prn
--- NOTE | 2017-07-02 11:07 | PN ---
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 sp/sw unchanged. No further f/u indicated.
[2017-07-02] MEDS: RANITIDINE HCL 150 MG TABLET (FP) PO SCH (11:42)
[2017-07-02] MEDS: CHOLECALCIFEROL (VITAMIN D3) 1,000 UNIT TABLET (FP) PO SCH (11:43)
[2017-07-02] MEDS: WARFARIN NA 2 MG TABLET (UD) PO SCH (18:58)
[2017-07-02] MEDS: ATORVASTATIN CA 20 MG TABLET (FP) PO SCH (21:05)
[2017-07-03 06:07] LABS: HEP.C VIRUS AB 0.1 s/co ratio (0.0-0.9)
[2017-07-03] MEDS: LEVOTHYROXINE NA 88 MCG TABLET (FP) PO SCH (06:07)
[2017-07-03] MEDS: RANITIDINE HCL 150 MG TABLET (FP) PO SCH (09:11)
[2017-07-03] MEDS: METOPROLOL TARTRATE 50 MG TABLET (FP) PO SCH (09:11)
[2017-07-03] MEDS: CHOLECALCIFEROL (VITAMIN D3) 1,000 UNIT TABLET (FP) PO SCH (09:11)
[2017-07-03] MEDS: DIGOXIN 0.125 MG TABLET (FP) PO SCH (09:11)
--- NOTE | 2017-07-03 10:48 | DS ---
Physical Examination Vital Signs: Vital Signs Temperature 98.2 F 07/03/17 06:00 Pulse Rate 77 07/03/17 09:11 Respiratory Rate 18 07/03/17 06:00 Blood Pressure 145/70 07/03/17 06:00 O2 Sat by Pulse Oximetry (%) 95 07/03/17 02:00 Findings/Remarks: AWAKE ALERT STILL HAS HESITATIONS ABOUT WALKING AND FALLING ON COUMADIN Constitutional: Yes: Mild Distress Eyes: Yes: WNL HENT: Yes: WNL Neck: Yes: WNL Cardiovascular: Yes: Pulse Irregular Respiratory: Yes: WNL Gastrointestinal: Yes: WNL Renal/: Yes: WNL Musculoskeletal: Yes: Muscle Weakness Extremities: Yes: WNL Edema: No Peripheral Pulses WNL: Yes Integumentary: Yes: WNL Wound/Incision: Yes: Clean/Dry Neurological: Yes: Pre-Existing Deficit, Unsteady Gait ...Motor Strength: LLE, RLE Psychiatric: Yes: Other Labs: CBC, BMP 07/02/17 05:35 07/02/17 05:35 Discharge Summary Reason For Visit: CEREBRAL INFARCTION Current Active Problems CVA (cerebral infarction) (Acute) DVT prophylaxis (Acute) Decreased appetite (Acute) Hypothyroid (Acute) Insomnia (Acute) Supratherapeutic INR (Acute) Procedures: Principal: CT HEAD Hospital Course: ADMITTED ACUTE CVA, TOXIC METABOLIC ENCEPHALOPATHY, AFIB, TREATED ON TELE WITH CARDIO/NEURO WORKUP. ECHO SHOWED PACEMAKER WITH MODERATE VALVE DISEASE. WILL NEED SNF FOR SHORT TERM Condition: Stable - Instructions Diet, Activity, Other Instructions: LOW SODIUM SEE DR QUINTANILLA AFTER DISCHARGE FROM [facility] Referrals: Kristina Quintanilla MD [Primary Care Provider] - Disposition: [facility] F[facility] - Home Medications Comprehensive Discharge Medication List: Ambulatory Orders Atorvastatin Ca [Lipitor] 20 mg PO HS 12/29/13 Metoprolol Tartrate [Lopressor -] 100 mg PO BID 12/29/13 [place]-3 Fatty Acids [[place]-3] 1,000 mg PO DAILY 12/29/13 Ranitidine [Zantac -] 150 mg PO DAILY 12/29/13 Cholecalciferol (Vitamin D3) [Vitamin D -] 2,000 unit PO DAILY 08/10/16 Digoxin [Lanoxin -] 0.125 mg PO DAILY 08/10/16 Warfarin Sodium 3 mg PO 1800 08/10/16 Levothyroxine [Synthroid -] 88 mcg PO DAILY@0700 tablet 08/13/16 Albuterol 2.5/Ipratropium 0.5 [Duoneb -] 1 amp NEB Q6H PRN amp 07/03/17 Warfarin Na [Coumadin -] 2 mg PO DAILY@1800 tablet 07/03/17
[2017-07-03 11:48] LABS: INR 1.5 (0.82-1.09)
[2017-07-03 11:57] LABS: ANION GAP 2 (8-16); BLOOD UREA NITROGEN 24 mg/dL (7-18); CALCIUM 9.8 mg/dL (8.5-10.1); CHLORIDE 104 mmol/L (98-107); CO2 29 mmol/L (21-32); GLUCOSE,RANDOM 69 mg/dL (74-106); MAGNESIUM 1.8 mg/dL (1.8-2.4); SODIUM 135 mmol/L (136-145)
[2017-07-03] MEDS ORDERED: ENOXAPARIN NA (PORCINE) 60 MG/0.6 ML DISP.SYRIN SQ SCH (12:30)
[2017-07-03 14:51] VITALS: BP 136/65; PULSE 72; TEMP 98.1
[2017-07-03] MEDS: WARFARIN NA 2.5 MG TABLET (FP) PO ONE ×2 (16:56→17:08)
[2017-07-03] MEDS: WARFARIN NA 2 MG TABLET (UD) PO SCH (17:08)
== END 2017-07-03 17:28 | DRG 71 ==
LOC: JER 18:58 → JERBED 06-30 00:12 → OBSVTOIN 06-30 00:12 → J4S 06-30 14:55
PROVIDERS: ADMIT Internal Medicine; ATTEND Family Medicine
DX: G93.41 Metabolic encephalopathy (principal); Z68.1 Body mass index [BMI] 19.9 or less, adult; Z86.73 Personal history of transient ischemic attack (TIA), and cerebral infarction without residual deficits; Z79.01 Long term (current) use of anticoagulants; I11.0 Hypertensive heart disease with heart failure; I50.9 Heart failure, unspecified; Z95.0 Presence of cardiac pacemaker; E78.5 Hyperlipidemia, unspecified; J44.9 Chronic obstructive pulmonary disease, unspecified; Z87.891 Personal history of nicotine dependence; Z85.3 Personal history of malignant neoplasm of breast; G47.00 Insomnia, unspecified; F41.9 Anxiety disorder, unspecified; M25.571 Pain in right ankle and joints of right foot; I25.10 Atherosclerotic heart disease of native coronary artery without angina pectoris; E11.40 Type 2 diabetes mellitus with diabetic neuropathy, unspecified; R29.701 NIHSS score 1; R79.1 Abnormal coagulation profile; R63.0 Anorexia; I48.2 Chronic atrial fibrillation
CPT/HCPCS: 36415; 70450-TC; 71045-TC-FY; 73610-TC-RT-FY; 76705-TC; 80048; 80053; 80074; 80162; 81003; 81015; 82550; 82553; 82607; 83735; 84436; 84443; 84484; 85025; 85027; 85610; 87086; 93005; 93010; 93306-TC; 97116-GP; 97162-GP; 99284-25

== ENCOUNTER 2017-08-20 09:10 | Day surgery (SDC) | payer OTHER, MEDICARE ==
[2017-08-19 14:20] VITALS: BMI 17.1
[2017-08-20 09:40] LABS: BASO % 0.7 % (0-2.0); EOS % 1.7 % (0-4.5); HEMATOCRIT 36.8 % (32.4-45.2); LYMPH % 8.2 % (8-40); MCH 29.1 pg (25.7-33.7); MCHC 32.8 g/dl (32.0-36.0); MEAN CELL VOLUME 88.7 fl (80-96); MEAN PLT VOLUME 7.8 fl (7.5-11.1); NEUT % 83.4 % (42.8-82.8); PLATELET COUNT 207 K/MM3 (134-434); RBC 4.15 M/mm3 (3.60-5.2); RDW 16.1 % (11.6-15.6); WHITE BLOOD COUNT 9.2 K/mm3 (4.0-10.0)
[2017-08-20 10:15] VITALS: TEMP 97.6
[2017-08-20 10:15] LABS: INR 1.12 (0.82-1.09); PROTHROMBIN TIME (PATIENT) 12.6 SEC (9.7-13.0)
[2017-08-20 15:05] VITALS: BP 110/70; PULSE 80
--- NOTE | 2017-08-23 12:17 | PATH ---
Surgical Pathology Report Patient Name: DC CUMMINGS Med. Rec. #: [id number] /Age/Gender: 1940 (Age: 77) / F Account: [id number] Location: [facility] RADIOLOGY U Taken: 08/20/2017 Received: 08/20/2017 Reported: 08/23/2017 Physicians: Aaron Simeon M.D. German Ortiz M.D. Brandin Chang M.D., PhD Specimen(s) Received LIVER BIOPSY Clinical History 77-year-old female with history of metastatic breast cancer now with liver lesions Postoperative diagnosis: Liver masses, rule out mets for breast cancer or other primary versus primary liver cancer Final Diagnosis LIVER, CORE BIOPSY: METASTATIC CARCINOMA, CONSISTENT WITH ORIGIN FROM KNOWN PRIOR BREAST PRIMARY. (SEE NOTE). Note: Immunohistochemical studies performed at [facility] demonstrate the tumor cells to be positive for ER (> 95 % nuclear staining with strong intensity) and negative for CK7. Immunostains performed at [place], [place] ([id number]) demonstrate positivity in the tumor cells for FL ( ~50% nuclear staining with strong intensity) and NELSON-3 while GCDFP, Mammaglobin, CK20 and Her2 are negative. This immunoprofile is consistent with mammary origin Prior history of left breast carcinoma is noted ([id number]). Electronically Signed Ava Ruiz M.D. Gross Description Received in formalin in 2 separate containers both labeled "liver tissue," are 3 wilson, cylindrical portions of soft tissue ranging from 1.5-1.8 cm in length and averaging 0.1 cm in diameter. The specimens are submitted in toto in 2 cassettes. /08/20/2017 saudi08/20/2017
== END 2017-08-20 16:45 | disposition home or self-care (01) ==
LOC: JRADIR 09:10
PROVIDERS: ATTEND Internal Medicine Hematology & Oncology
PROC: 0FB03ZX Excision of Liver, Percutaneous Approach, Diagnostic (ICD-10-PCS; principal; 2017-08-20)
DX: C78.7 Secondary malignant neoplasm of liver and intrahepatic bile duct (principal); C50.919 Malignant neoplasm of unspecified site of unspecified female breast
CPT/HCPCS: 36415; 76942-TC; 85025; 85610; 87899

== ENCOUNTER 2017-10-03 07:40 | Day surgery (SDC) | payer OTHER, MEDICARE ==
[2017-10-03] MEDS ORDERED: PALONOSETRON HCL 0.25 MG/5 ML VIAL IVPUSH ONE (10:00)
[2017-10-03] MEDS ORDERED: DEXAMETHASONE INJECTION 10 MG, DIPHENHYDRAMINE 50 MG, RANITIDINE INJECTION 50 MG in SOD... IVPB ONE (10:00)
[2017-10-03 10:18] LABS: BASO % 0.3 % (0-2.0); EOS % 0.3 % (0-4.5); HEMATOCRIT 38.1 % (32.4-45.2); HEMOGLOBIN 12.3 GM/dL (10.7-15.3); LYMPH % 4.6 % (8-40); MCH 28.9 pg (25.7-33.7); MCHC 32.3 g/dl (32.0-36.0); MEAN CELL VOLUME 89.5 fl (80-96); MEAN PLT VOLUME 8.4 fl (7.5-11.1); MONO % 1.9 % (3.8-10.2); NEUT % 92.9 % (42.8-82.8); PLATELET COUNT 93 K/MM3 (134-434); RBC 4.25 M/mm3 (3.60-5.2); RDW 17.6 % (11.6-15.6)
[2017-10-03] MEDS ORDERED: PACLITAXEL 90 MG in SODIUM CHLORIDE 250 ML IVPB ONE (10:30)
[2017-10-03] MEDS ORDERED: amLODIPine BESYLATE 5 MG TABLET (FP) PO ONE (10:30)
[2017-10-03 10:35] LABS: ALBUMIN 2.6 g/dl (3.4-5.0); ANION GAP 10 (8-16); BLOOD UREA NITROGEN 22 mg/dL (7-18); CALCIUM 8.7 mg/dL (8.5-10.1); CHLORIDE 101 mmol/L (98-107); CO2 24 mmol/L (21-32); CREATININE 0.8 mg/dL (0.55-1.02); GLUCOSE,RANDOM 178 mg/dL (74-106); POTASSIUM 5.8 mmol/L (3.5-5.1); SGOT/AST 44 U/L (15-37); SGPT/ALT 33 U/L (12-78); SODIUM 135 mmol/L (136-145)
[2017-10-03 10:37] LABS: ALK PHOS 229 U/L (45-117); BILIRUBIN,TOTAL 0.4 mg/dL (0.2-1.0)
[2017-10-03 11:17] LABS: ALBUMIN 2.6 g/dl (3.4-5.0); BILIRUBIN,DIRECT 0.2 mg/dL (0.0-0.2)
[2017-10-03 11:19] LABS: BILIRUBIN,TOTAL 0.3 mg/dL (0.2-1.0); TOT PROT 5.9 g/dl (6.4-8.2)
[2017-10-03] MEDS ORDERED: SODIUM CHLORIDE 250 ML IV ONE (11:30)
[2017-10-03 11:33] LABS: ANISOCYTOSIS 1+; MACROCYTOSIS 1+; OVALOCYTE 2+; PLATELET ESTIMATE DECREASED; TEAR DROP CELLS 1+
[2017-10-03] MEDS ORDERED: SODIUM CHLORIDE IVPB ONE (12:00)
[2017-10-03] MEDS ORDERED: PACLITAXEL IVPB ONE (12:00)
[2017-10-03 12:08] VITALS: TEMP 97.5
[2017-10-03] MEDS ORDERED: SODIUM POLYSTYRENE SULFONATE 15 GM/60 ML BOTTLE PO ONE ×2 (12:15→14:45)
[2017-10-03 16:19] VITALS: BP 138/96; PULSE 67
== END 2017-10-03 13:40 | disposition home or self-care (01) ==
LOC: JONCCHEMO 07:40 → J7W 10:19 → JONCCHEMO 13:40
PROVIDERS: ATTEND Internal Medicine Hematology & Oncology
DX: Z51.11 Encounter for antineoplastic chemotherapy (principal); C50.919 Malignant neoplasm of unspecified site of unspecified female breast; C78.7 Secondary malignant neoplasm of liver and intrahepatic bile duct; C79.51 Secondary malignant neoplasm of bone
CPT/HCPCS: 36415; 80053; 80076; 83735; 85025; 85730; 96367; 96375; 96413; J1100; J2469

== ENCOUNTER 2017-10-04 07:11 | Day surgery (SDC) | payer OTHER, MEDICARE ==
[2017-10-04] MEDS ORDERED: TBO-FILGRASTIM 480 MCG/0.8 ML DISP.SYRIN SQ ONE (10:00)
[2017-10-04 16:25] VITALS: BP 115/84; PULSE 91; TEMP 97
== END 2017-10-04 14:00 | disposition home or self-care (01) ==
LOC: JONCCHEMO 07:11 → J7W 13:15 → JONCCHEMO 14:00
PROVIDERS: ATTEND Internal Medicine Hematology & Oncology
PROC: 3E013GC Introduction of Other Therapeutic Substance into Subcutaneous Tissue, Percutaneous Approach (ICD-10-PCS; principal; 2017-10-04)
DX: C50.919 Malignant neoplasm of unspecified site of unspecified female breast (principal); C78.7 Secondary malignant neoplasm of liver and intrahepatic bile duct; C79.51 Secondary malignant neoplasm of bone; Z76.89 Persons encountering health services in other specified circumstances
CPT/HCPCS: 96372; J1447

== ENCOUNTER 2017-10-09 08:05 | Day surgery (SDC) | payer OTHER, MEDICARE ==
[2017-10-08 17:29] VITALS: BMI 16.2
[2017-10-09 08:41] LABS: BASO % 0.5 % (0-2.0); EOS % 1.9 % (0-4.5); HEMATOCRIT 37.5 % (32.4-45.2); HEMOGLOBIN 12.5 GM/dL (10.7-15.3); LYMPH % 3.7 % (8-40); MCH 29.6 pg (25.7-33.7); MCHC 33.3 g/dl (32.0-36.0); MEAN CELL VOLUME 88.9 fl (80-96); MONO % 9.4 % (3.8-10.2); NEUT % 84.5 % (42.8-82.8); PLATELET COUNT 128 K/MM3 (134-434); RBC 4.22 M/mm3 (3.60-5.2); RDW 18.7 % (11.6-15.6); WHITE BLOOD COUNT 8.4 K/mm3 (4.0-10.0)
[2017-10-09 08:44] LABS: INR 1.04 (0.82-1.09); PROTHROMBIN TIME (PATIENT) 11.7 SEC (9.7-13.0)
[2017-10-09 09:26] VITALS: TEMP 97.4
[2017-10-09] MEDS ORDERED: PORTA CATH FLUSH 10 ML IVPUSH PRN (09:30)
[2017-10-09 10:20] LABS: ANISOCYTOSIS 2+; MACROCYTOSIS 0; PLATELET ESTIMATE DECREASED
[2017-10-09 14:56] VITALS: BP 108/58; PULSE 93
== END 2017-10-09 14:00 | disposition home or self-care (01) ==
LOC: JRADIR 08:05
PROVIDERS: ATTEND Internal Medicine Hematology & Oncology
PROC: 02HV33Z Insertion of Infusion Device into Superior Vena Cava, Percutaneous Approach (ICD-10-PCS; principal; 2017-10-09)
PROC: B518ZZA Fluoroscopy of Superior Vena Cava, Guidance (ICD-10-PCS; 2017-10-09)
DX: C50.919 Malignant neoplasm of unspecified site of unspecified female breast (principal); Z95.0 Presence of cardiac pacemaker
CPT/HCPCS: 36561; 77001; C1751; 36415; 85025; 85610; C1788

== ENCOUNTER 2017-10-21 07:40 | Day surgery (SDC) | payer OTHER, MEDICARE ==
[2017-10-21] MEDS ORDERED: PALONOSETRON HCL 0.25 MG/5 ML VIAL IVPUSH ONE (08:00)
[2017-10-21] MEDS ORDERED: DEXAMETHASONE INJECTION 20 MG, DIPHENHYDRAMINE 50 MG, RANITIDINE INJECTION 50 MG in SOD... IVPB ONE (08:00)
[2017-10-21] MEDS ORDERED: PACLITAXEL 90 MG in SODIUM CHLORIDE 250 ML IVPB ONE (08:30)
[2017-10-21] MEDS ORDERED: SODIUM CHLORIDE 250 ML IV ONE (09:30)
[2017-10-21 09:53] LABS: BASO % 0.8 % (0-2.0); EOS % 0.5 % (0-4.5); HEMATOCRIT 39.5 % (32.4-45.2); HEMOGLOBIN 12.8 GM/dL (10.7-15.3); LYMPH % 4.3 % (8-40); MCHC 32.3 g/dl (32.0-36.0); MEAN CELL VOLUME 89.6 fl (80-96); MEAN PLT VOLUME 8.1 fl (7.5-11.1); MONO % 2.4 % (3.8-10.2); PLATELET COUNT 167 K/MM3 (134-434); RBC 4.41 M/mm3 (3.60-5.2)
[2017-10-21 10:30] LABS: ALBUMIN 2.6 g/dl (3.4-5.0); ANION GAP 8 (8-16); BILIRUBIN,DIRECT 0.2 mg/dL (0.0-0.2); BILIRUBIN,TOTAL 0.6 mg/dL (0.2-1.0); BLOOD UREA NITROGEN 21 mg/dL (7-18); CALCIUM 9.1 mg/dL (8.5-10.1); CHLORIDE 103 mmol/L (98-107); CO2 26 mmol/L (21-32); CREATININE 1.1 mg/dL (0.55-1.02); GLUCOSE,RANDOM 186 mg/dL (74-106); MAGNESIUM 2.3 mg/dL (1.8-2.4); POTASSIUM 5.1 mmol/L (3.5-5.1); SGOT/AST 43 U/L (15-37); SGPT/ALT 24 U/L (12-78); SODIUM 137 mmol/L (136-145)
[2017-10-21 10:31] LABS: ALK PHOS 247 U/L (45-117)
[2017-10-21 14:30] LABS: ANISOCYTOSIS 2+; MACROCYTOSIS 0; PLATELET ESTIMATE DECREASED
[2017-10-21 16:15] VITALS: TEMP 97.9
[2017-10-21] MEDS ORDERED: PORTA CATH FLUSH 10 ML IVPUSH ONE (16:15)
[2017-10-21 16:17] VITALS: BP 101/79; PULSE 101
== END 2017-10-21 13:00 | disposition home or self-care (01) ==
LOC: JONCCHEMO 07:40 → J7W 10:08 → JONCCHEMO 13:00
PROVIDERS: ATTEND Internal Medicine Hematology & Oncology
PROC: 3E04305 Introduction of Other Antineoplastic into Central Vein, Percutaneous Approach (ICD-10-PCS; principal; 2017-10-21)
PROC: 3E043GC Introduction of Other Therapeutic Substance into Central Vein, Percutaneous Approach (ICD-10-PCS; 2017-10-21)
PROC: 3E0437Z Introduction of Electrolytic and Water Balance Substance into Central Vein, Percutaneous Approach (ICD-10-PCS; 2017-10-21)
DX: Z51.11 Encounter for antineoplastic chemotherapy (principal); C50.412 Malignant neoplasm of upper-outer quadrant of left female breast; C79.51 Secondary malignant neoplasm of bone; C78.7 Secondary malignant neoplasm of liver and intrahepatic bile duct; Z17.0 Estrogen receptor positive status [ER+]; I10 Essential (primary) hypertension; E78.00 Pure hypercholesterolemia, unspecified; E03.9 Hypothyroidism, unspecified
CPT/HCPCS: 36415; 80053; 80076; 82378; 83735; 85025; 86300; 96361; 96367; 96375; 96413; J1100; J2469

== ENCOUNTER 2017-10-28 07:38 | Day surgery (SDC) | payer OTHER, MEDICARE ==
[2017-10-28] MEDS ORDERED: PALONOSETRON HCL 0.25 MG/5 ML VIAL IVPUSH ONE (08:00)
[2017-10-28] MEDS ORDERED: DEXAMETHASONE INJECTION 10 MG, DIPHENHYDRAMINE 50 MG, RANITIDINE INJECTION 50 MG in SOD... IVPB ONE (08:00)
[2017-10-28] MEDS ORDERED: PACLITAXEL 90 MG in SODIUM CHLORIDE 250 ML IVPB ONE (08:30)
[2017-10-28 08:59] VITALS: TEMP 97.4
[2017-10-28] MEDS ORDERED: SODIUM CHLORIDE 250 ML IV ONE (09:30)
[2017-10-28 09:35] LABS: BASO % 0.6 % (0-2.0); EOS % 0.6 % (0-4.5); HEMATOCRIT 38.2 % (32.4-45.2); HEMOGLOBIN 12.7 GM/dL (10.7-15.3); LYMPH % 6.1 % (8-40); MCH 29.4 pg (25.7-33.7); MCHC 33.3 g/dl (32.0-36.0); MEAN CELL VOLUME 88.4 fl (80-96); MEAN PLT VOLUME 8.3 fl (7.5-11.1); MONO % 2.2 % (3.8-10.2); NEUT % 90.5 % (42.8-82.8); PLATELET COUNT 140 K/MM3 (134-434); RBC 4.32 M/mm3 (3.60-5.2); RDW 18.4 % (11.6-15.6); WHITE BLOOD COUNT 7.2 K/mm3 (4.0-10.0)
[2017-10-28] MEDS ORDERED: DEXTROSE 5% IVPB ONE (10:00)
[2017-10-28] MEDS ORDERED: WATER IVPB ONE (10:00)
[2017-10-28] MEDS ORDERED: ZOLEDRONIC ACID IVPB ONE (10:00)
[2017-10-28 10:07] LABS: ANION GAP 9 (8-16); BLOOD UREA NITROGEN 30 mg/dL (7-18); CALCIUM 9.8 mg/dL (8.5-10.1); CHLORIDE 99 mmol/L (98-107); CO2 30 mmol/L (21-32); CREATININE 1.2 mg/dL (0.55-1.02); GLUCOSE,RANDOM 111 mg/dL (74-106); MAGNESIUM 2.2 mg/dL (1.8-2.4); POTASSIUM 4.9 mmol/L (3.5-5.1); SGOT/AST 56 U/L (15-37); SGPT/ALT 26 U/L (12-78); SODIUM 138 mmol/L (136-145)
[2017-10-28 10:09] LABS: ALK PHOS 202 U/L (45-117); BILIRUBIN,DIRECT 0.2 mg/dL (0.0-0.2); BILIRUBIN,TOTAL 0.6 mg/dL (0.2-1.0); TOT PROT 6.2 g/dl (6.4-8.2)
[2017-10-28 10:10] LABS: BILIRUBIN,TOTAL 0.5 mg/dL (0.2-1.0); TOT PROT 6.2 g/dl (6.4-8.2)
[2017-10-28 16:07] VITALS: BP 89/55; PULSE 95
[2017-10-28] MEDS ORDERED: PORTA CATH FLUSH 10 ML IVPUSH ONE (16:09)
== END 2017-10-28 14:00 | disposition home or self-care (01) ==
LOC: JONCCHEMO 07:38 → J7W 10:06 → JONCCHEMO 14:00
PROVIDERS: ATTEND Internal Medicine Hematology & Oncology
DX: Z51.11 Encounter for antineoplastic chemotherapy (principal); C50.412 Malignant neoplasm of upper-outer quadrant of left female breast; C79.51 Secondary malignant neoplasm of bone; C78.7 Secondary malignant neoplasm of liver and intrahepatic bile duct; Z17.0 Estrogen receptor positive status [ER+]; I11.0 Hypertensive heart disease with heart failure
CPT/HCPCS: 36415; 80053; 80076; 83735; 85025; 96375; 96413; J1100; J2469

== ENCOUNTER 2017-11-04 07:47 | Day surgery (SDC) | payer OTHER, MEDICARE ==
[2017-11-04] MEDS ORDERED: DEXAMETHASONE IVPB ONE (10:00)
[2017-11-04] MEDS ORDERED: DIPHENHYDRAMINE IVPB ONE (10:00)
[2017-11-04] MEDS ORDERED: RANITIDINE IVPB ONE (10:00)
[2017-11-04] MEDS ORDERED: PALONOSETRON HCL 0.25 MG/5 ML VIAL IVPUSH ONE (10:00)
[2017-11-04] MEDS ORDERED: [UNRECOGNIZED DRUG - OTHER] IVPB ONE (10:00)
[2017-11-04] MEDS ORDERED: PACLITAXEL 90 MG in SODIUM CHLORIDE 250 ML IVPB ONE (10:30)
[2017-11-04] MEDS ORDERED: SODIUM CHLORIDE 250 ML IV ONE (11:30)
[2017-11-04 13:50] LABS: BASO % 0.2 % (0-2.0); EOS % 0.2 % (0-4.5); HEMATOCRIT 33.6 % (32.4-45.2); HEMOGLOBIN 11.3 GM/dL (10.7-15.3); LYMPH % 5.7 % (8-40); MCH 29.8 pg (25.7-33.7); MCHC 33.6 g/dl (32.0-36.0); MEAN CELL VOLUME 88.6 fl (80-96); MEAN PLT VOLUME 8.5 fl (7.5-11.1); MONO % 6.7 % (3.8-10.2); NEUT % 87.2 % (42.8-82.8); PLATELET COUNT 119 K/MM3 (134-434); RBC 3.79 M/mm3 (3.60-5.2); RDW 19.4 % (11.6-15.6); WHITE BLOOD COUNT 5.6 K/mm3 (4.0-10.0)
[2017-11-04 14:22] LABS: ALBUMIN 2.8 g/dl (3.4-5.0); ALK PHOS 130 U/L (45-117); ANION GAP 7 (8-16); BILIRUBIN,DIRECT < 0.2 mg/dL (0.0-0.2); BILIRUBIN,TOTAL 0.3 mg/dL (0.2-1.0); BLOOD UREA NITROGEN 40 mg/dL (7-18); CALCIUM 9.4 mg/dL (8.5-10.1); CHLORIDE 99 mmol/L (98-107); CO2 30 mmol/L (21-32); CREATININE 0.9 mg/dL (0.55-1.02); GLUCOSE,RANDOM 142 mg/dL (74-106); MAGNESIUM 2.3 mg/dL (1.8-2.4); POTASSIUM 4.2 mmol/L (3.5-5.1); SGOT/AST 42 U/L (15-37); SGPT/ALT 30 U/L (12-78); SODIUM 136 mmol/L (136-145); TOT PROT 5.6 g/dl (6.4-8.2)
[2017-11-04] MEDS ORDERED: PORTA CATH FLUSH 10 ML IVPUSH ONE (18:12)
[2017-11-04 18:19] VITALS: BP 128/84; PULSE 96
[2017-11-04 18:20] VITALS: TEMP 98.6
== END 2017-11-04 16:15 | disposition home or self-care (01) ==
LOC: JONCCHEMO 07:47 → J7W 11:01 → JONCCHEMO 16:15
PROVIDERS: ATTEND Internal Medicine Hematology & Oncology
DX: Z51.11 Encounter for antineoplastic chemotherapy (principal); C50.412 Malignant neoplasm of upper-outer quadrant of left female breast; C79.51 Secondary malignant neoplasm of bone; C78.7 Secondary malignant neoplasm of liver and intrahepatic bile duct; Z17.0 Estrogen receptor positive status [ER+]
CPT/HCPCS: 36415; 80053; 80076; 83735; 85025; 96361; 96367; 96375; 96413; J1100; J2469

== ENCOUNTER 2017-11-06 10:23 | Inpatient (IN) | payer OTHER, MEDICARE ==
--- NOTE | 2017-11-06 10:55 | PDOC ---
History of Present Illness - General History Source: Patient, Family Exam Limitations: No Limitations - History of Present Illness Initial Comments: 11/06/17 12:00 77 year old female with a significant past medical history of Atrial fibrillation on coumadin, CVA, HTN, HLD, COPD, and metastatic breast CA, who presents to the hospital at the request of Dr. Ortiz for r/o GI bleed with weakness, chills, and dark emesis today. The patient states she usually becomes nauseous after chemotherapy, however, noticed an increase in overall weakness after her most recent chemotherapy treatment about 3-4 days ago. The patient states she noticed her emesis to be dark "almost black" this morning. She reports her BM this morning was formed, however, she states she did not look at the color of her stool. She states she feels more weak than her usual today. She also states she has some mild lower abdominal pain which is nonradiating. She denies any exacerbating or alleviating factors of pain. The patient denies chest pain, shortness of breath, headache and dizziness. The patient denies fever, diarrhea and constipation.The patient denies dysuria, frequency, urgency and hematuria. Allergies: none Social History: former smoker. No ETOH PCP: Dr. Martinez <Ann Coates - Last Filed: 11/06/17 12:00> - General History Source: Patient Exam Limitations: No Limitations <Rosibel Marcos - Last Filed: 11/06/17 13:33> - General Chief Complaint: Nausea/Vomiting Stated Complaint: VOMITING,NAUSEA Time Seen by Provider: 11/06/17 10:54 Past History <Ann Coates - Last Filed: 11/06/17 12:00> - Past Medical History Anemia: No Asthma: No Cancer: Yes (LYMPH NODES LEFT BREAST) Cardiac Disorders: Yes (pacemaker) CVA: Yes (HX OF TIA) COPD: No CHF: No DVT: No Dementia: No (FORGETFUL) Diabetes: No GI Disorders: No Disorders: No HTN: Yes Hypercholesterolemia: Yes Liver Disease: No Seizures: No Thyroid Disease: Yes - Surgical History Abdominal Surgery: No Appendectomy: Yes Cardiac Surgery: Yes (PACEM[employer]ER [employer] 0CT 16 2009) Cholecystectomy: No Lung Surgery: No Neurologic Surgery: No Orthopedic Surgery: No - Immunization History Immunization Up to Date: Yes - Suicide/Smoking/Psychosocial Hx Smoking History: Former smoker Have you smoked in the past 12 months: No Number of Cigarettes Smoked Daily: 4 If you are a former smoker, when did you quit?: 1979 Hx Alcohol Use: No Drug/Substance Use Hx: No Substance Use Type: None Hx Substance Use Treatment: No <HemantRosibel - Last Filed: 11/06/17 13:33> - Past Medical History Allergies/Adverse Reactions: Allergies Allergy/AdvReac Type Severity Reaction Status Date / Time No Known Drug Allergies Allergy Verified 11/06/17 10:42 Home Medications: Ambulatory Orders Metoprolol Tartrate [Lopressor -] 50 mg PO BID 12/29/13 Warfarin Na [Coumadin -] 2.5 mg PO DAILY@1800 tablet 09/27/17 Folic Acid/Multivit-Min/Lutein [Multi-Vitamin Gummies] 1 tab PO DAILY 11/06/17 Levothyroxine 0.125 mg PO DAILY 11/06/17 Prochlorperazine 10 mg PO DAILY 11/06/17 Ranitidine [Zantac -] 150 mg PO DAILY 11/06/17 Review of Systems - Review of Systems Able to Perform ROS?: Yes Comments:: 11/06/17 12:12 CONSTITUTIONAL: (+) chills, generalized weakness. Absent: fever, fatigue EYES: Absent: visual changes ENT: Absent: ear pain, sore throat CARDIOVASCULAR: Absent: chest pain, palpitations RESPIRATORY: Absent: cough, SOB GASTROINTESTINAL: (+) abdominal pain, nausea, vomiting, Absent: constipation, diarrhea GENITOURINARY: Absent: dysuria, frequency, hematuria MUSCULOSKELETAL: Absent: back pain, arthralgia, myalgia SKIN: Absent: rash NEURO: Absent: headache <Ann Coates - Last Filed: 11/06/17 12:00> *Physical Exam - Vital Signs Last Vital Signs Temp Pulse Resp BP Pulse Ox 97.0 F L 88 18 117/79 97 11/06/17 10:59 11/06/17 10:59 11/06/17 10:59 11/06/17 10:59 11/06/17 10:59 - Physical Exam Comments: 11/06/17 12:13 GENERAL: (+) pale and frail. The patient is in no acute distress. HEAD: Normal with no signs of trauma. EYES: (+) conjunctival pallor. PERRLA, EOMI, sclera anicteric, ENT: Ears normal, nares patent, oropharynx clear without exudates. Moist mucous membranes. NECK: Normal range of motion, supple without lymphadenopathy, JVD, or masses. LUNGS: Breath sounds equal, clear to auscultation bilaterally. No wheezes, and no crackles. HEART:Regular rate and rhythm, normal S1 and S2 without murmur, rub or gallop. ABDOMEN: Soft, nontender, normoactive bowel sounds. No guarding, no rebound. No masses palpable. EXTREMITIES: Normal range of motion, no edema. No clubbing or cyanosis. No erythema, or tenderness. NEUROLOGICAL: Cranial nerves II through XII grossly intact. Normal speech. No focal neurological deficits. Gait unassessed. MUSCULOSKELETAL: Back non-tender to palpation, no CVA tenderness SKIN: Warm, Dry, normal turgor, no rashes or lesions noted. <Ann Coates - Last Filed: 11/06/17 12:00> ED Treatment Course - ADDITIONAL ORDERS Additional order review: Laboratory Results 11/06/17 11:20 Stool Occult Blood Negative <Ann Coates - Last Filed: 11/06/17 12:00> - LABORATORY CBC & Chemistry Diagram: 11/06/17 12:13 11/06/17 12:13 <Rosibel Marcos - Last Filed: 11/06/17 13:33> Medical Decision Making - Medical Decision Making 11/06/17 11:41 Ms Kinza is a 77 yo F who presents to the ER with a complaint of vomiting Pt has a history of metastatic breast cancer (to liver and bones), currently on Taxol and receiving Radiation Pt noted to have vomiting Concerning because she had dark emesis No fevers or chills No diarrhea Pt is cachectic She is pale appearing She is awake and alert RRR CTA No abd tenderness to palpation Rectal exam: rectal prolapse, no thrombosed hemorrhoid Brown stool Will do: Labs IVF Guiaic Re assess EKG:Patient tolerated 106 bpm, axis normal, intervals are normal-QRS 86 ms, QTc 443 ms. T wave inversion in lead V5, V6. Laboratory Tests 11/06/17 11/06/17 11/06/17 11:20 12:13 12:13 WBC 9.3 Hgb 10.0 L Hct 29.8 L Plt Count 118 L Neutrophils % 89.3 H Lymphocytes % 3.7 L D INR 1.68 H Sodium Potassium Chloride Carbon Dioxide BUN Creatinine Random Glucose Stool Occult Blood Negative 11/06/17 12:13 WBC Hgb Hct Plt Count Neutrophils % Lymphocytes % INR Sodium 140 Potassium 5.7 H Chloride 103 Carbon Dioxide 24 BUN 87 H D Creatinine 1.0 Random Glucose 145 H Stool Occult Blood 11/06/17 13:10 My concern is: pt is pale appearing, Hgb nml BUN 87/1.0 suggesting severe hemoconcentration vs. GI bleeding Case reviewed with CURTAIN MENDER Dipin Will place on observation 11/06/17 13:32 <Rosibel Marcos - Last Filed: 11/06/17 13:33> *DC/Admit/Observation/Transfer - Attestations Scribe Attestion: 11/06/17 12:13 Documentation prepared by Ann Coates, acting as medical parasitologist for Rosibel Marcos MD <Ann Coates - Last Filed: 11/06/17 12:00> - Discharge Dispostion Decision to Admit order: Yes <Rosibel Marcos - Last Filed: 11/06/17 13:33> Diagnosis at time of Disposition: Weakness - Discharge Dispostion Condition at time of disposition: Stable - Referrals Referrals: Kristina Martinez MD [Primary Care Provider] - - Patient Instructions - Post Discharge Activity
[2017-11-06] MEDS ORDERED: ONDANSETRON 4 MG/2 ML VIAL IVPUSH ONE (10:57)
[2017-11-06] MEDS ORDERED: ONDANSETRON 4 MG/2 ML VIAL ONE (11:53)
[2017-11-06] MEDS ORDERED: PANTOPRAZOLE SODIUM 40 MG VIAL IVPUSH ONE (12:07)
[2017-11-06] MEDS: SODIUM CHLORIDE 1,000 ML IV SCH (12:19)
[2017-11-06 12:24] LABS: BASO % 0.1 % (0-2.0); EOS % 0.1 % (0-4.5); HEMATOCRIT 29.8 % (32.4-45.2); LYMPH % 3.7 % (8-40); MCHC 33.5 g/dl (32.0-36.0); MEAN CELL VOLUME 89.5 fl (80-96); MONO % 6.8 % (3.8-10.2); NEUT % 89.3 % (42.8-82.8); PLATELET COUNT 118 K/MM3 (134-434); RBC 3.33 M/mm3 (3.60-5.2); RDW 20.1 % (11.6-15.6); WHITE BLOOD COUNT 9.3 K/mm3 (4.0-10.0)
[2017-11-06] MEDS ORDERED: PANTOPRAZOLE SODIUM 40 MG VIAL ONE (12:24)
[2017-11-06 12:46] LABS: INR 1.68 (0.83-1.09)
[2017-11-06 12:47] LABS: ALBUMIN 2.9 g/dl (3.4-5.0); ANION GAP 13 (8-16); BLOOD UREA NITROGEN 87 mg/dL (7-18); CALCIUM 9.2 mg/dL (8.5-10.1); CHLORIDE 103 mmol/L (98-107); CO2 24 mmol/L (21-32); GLUCOSE,RANDOM 145 mg/dL (74-106); POTASSIUM 5.7 mmol/L (3.5-5.1); SGOT/AST 40 U/L (15-37); SGPT/ALT 31 U/L (12-78); SODIUM 140 mmol/L (136-145)
[2017-11-06 12:49] LABS: ALK PHOS 110 U/L (45-117); BILIRUBIN,TOTAL 0.4 mg/dL (0.2-1.0); TOT PROT 5.6 g/dl (6.4-8.2)
[2017-11-06] MEDS ORDERED: ONDANSETRON 4 MG/2 ML VIAL IVPB PRN (13:15)
[2017-11-06] MEDS: DEXTROSE 5%-0.45% SALINE 1,000 ML IV SCH (13:46)
--- NOTE | 2017-11-06 15:31 | CONSULT ---
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: CVA, TIA, Other (DIGITAL PERFORMANCE ANALYST atropy on MRI) Cardio/Vascular: Yes: AFIB (left PPM), HTN, Hyperlipdemia, Murmur Pulmonary: Yes: COPD Hepatobiliary: Yes: Cholelithiasis Renal/: Yes: Renal Calculi ...: 4 ...Para: 4 Heme/Onc: Yes: Current Chemotherapy Musculoskeletal: Yes: Chronic low back pain (back pains currently), Other ( improved s/p RT) Endocrine: Yes: Hypothyroidism - Past Surgical History Past Surgical History: Yes: Appendectomy, Colonoscopy, Mastectomy (Left), Permanent Pacemaker, Tonsillectomy - Alcohol/Substance Use Hx Alcohol Use: No History of Substance Use: reports: None - Smoking History Smoking history: Former smoker Have you smoked in the past 12 months: No Aproximately how many cigarettes per day: 4 If you are a former smoker, when did you quit?: 1979 - Social History Usual Living Arrangement: With Child ADL: Family Assistance History of Recent Travel: No Home Medications - Allergies Allergies/Adverse Reactions: Allergies Allergy/AdvReac Type Severity Reaction Status Date / Time No Known Drug Allergies Allergy Verified 11/06/17 10:42 - Home Medications Home Medications: Ambulatory Orders Metoprolol Tartrate [Lopressor -] 50 mg PO BID 12/29/13 Warfarin Na [Coumadin -] 2.5 mg PO DAILY@1800 tablet 09/27/17 Folic Acid/Multivit-Min/Lutein [Multi-Vitamin Gummies] 1 tab PO DAILY 11/06/17 Levothyroxine 0.125 mg PO DAILY 11/06/17 Prochlorperazine 10 mg PO DAILY 11/06/17 Ranitidine [Zantac -] 150 mg PO DAILY 11/06/17 Family Disease History - Family Disease History Family Disease History: CA: Daughter (breast cancer), Respiratory: Mother ( 74 ? cause), Other: Father ( 67 ? cause) Review of Systems - Review of Systems Constitutional: reports: Loss of Appetite, Unintentional Wgt. Loss, Weakness Eyes: denies: Blind Spots, Blurred Vision, Double Vision, Recent Change in Vision HENT: denies: Difficult Swallowing, Epistaxis, Nasal Congestion, Throat Pain, Ringing in Ears Neck: denies: Pain on Movement, Stiffness, Swollen Glands, Tenderness Cardiovascular: reports: Shortness of Breath. denies: Chest Pain Respiratory: reports: SOB, SOB on Exertion. denies: Cough Gastrointestinal: reports: Vomiting, Other (coffee ground emesis). denies: Abdominal Pain, Bloating, Constipation, Diarrhea Genitourinary: denies: No Symptoms, Flank Pain, Frequency Breasts: reports: Other (s/p left mastectomy no chest wall recurrence s/p right lumpectomy) Musculoskeletal: reports: Muscle Weakness. denies: Back Pain Neurological: reports: No Symptoms. denies: Unsteady Gait Endocrine: denies: Excessive Sweating, Intolerance to Heat Hematology/Lymphatic: denies: Easily Bruised, Excessive Bleeding, Swollen Glands Psychiatric: reports: No Symptoms Physical Exam Vital Signs: Vital Signs Temperature 97.0 F L 11/06/17 10:59 Pulse Rate 88 11/06/17 10:59 Respiratory Rate 18 11/06/17 10:59 Blood Pressure 117/79 11/06/17 10:59 O2 Sat by Pulse Oximetry (%) 97 11/06/17 10:59 Constitutional: Yes: Cachectic, Moderate Distress Eyes: Yes: Conjunctiva Clear, EOM Intact, PERRL. No: Cataracts, Diplopia, Ptosis, Sclera Icterus HENT: Yes: Normocephalic. No: Atraumatic, Epistaxis, Hoarseness, Nasal Congestion, Pharyngeal Erythema, Tonsillar Exudate Neck: Yes: Trachea Midline. No: Tenderness, Thyromegaly Cardiovascular: Yes: Pulse Irregular, Murmur Respiratory: Yes: Diminished, Rales, Rhonchi Gastrointestinal: Yes: Normal Bowel Sounds, Soft, Hematemesis. No: Splenomegaly , Tenderness ...Rectal Exam: Yes: Other (Rectal exam- no masses- hematest NEGATVE stool with hard stool (exam and guaic done by me)) Renal/: No: CVA Tenderness - Left, CVA Tenderness - Right, Hematuria Breast(s): Yes: Right, Other (s/p left mastectomy). No: Dimpling, Discharge from Nipple, Mass, Skin Changes Extremities: No: Calf Tenderness, Cool Edema: No Integumentary: Yes: WNL Neurological: Yes: WNL ...Motor Strength: WNL Psychiatric: Yes: WNL Labs: CBC, BMP 11/06/17 12:13 11/06/17 12:13 Problem List - Problems (1) Gastrointestinal bleed Assessment/Plan: Patient presents with emesis of coffe ground material. Had been on tapering doses of prednisone for past 12 days -tapering down from 40mg to currently 10 mg to . try and enhance patients appetite. Had been on ranitidine. Also on coumadin for atrial fib. Labs reflective of upper GI bleed with elevated BUN- 87. On todays rectal exam, no masses, hard stool, hematest NEGATIVE ( done and checked by me) Code(s): K92.2 - GASTROINTESTINAL HEMORRHAGE, UNSPECIFIED (2) Breast cancer, left Assessment/Plan: Oncologic history: 10/2003 right lumpectomy for T1a , low grade ER+ invasive ductal ca treated with RT and no post op therapy 05/2012 --- Multicentric invasive ductal ca, ER+, with skin and axillary involvement treated with mastectomy and hormonal therapy Stage IIIB disease. Continued on hormonal therapy with aromatase inhibitor and switched to Faslodex. Treated through 2014 and then lost to follow up. Presented with liver, bone, spine, and lung mets.() Liver biopsy positive for recurrent ER+ metastatic invasive ductal ca. Severly cachectic with weight loss to < 100 lb. Patient begun on weekly chemotherapy with taxol 09/26. Has received 7 infusions to date. Last taxol 11/04. Plan was to give 12 weekly treatments and then re- image. Code(s): C50.912 - MALIGNANT NEOPLASM OF UNSPECIFIED SITE OF LEFT FEMALE BREAST Qualifiers: Estrogen receptor status: positive Patient sex: female (3) Hyperkalemia Assessment/Plan: K+-- 5. 7 -- will need salud exalate. Code(s): E87.5 - HYPERKALEMIA Assessment/Plan Presumed Upper GI bleed exacerbated by prednisone therapy. Coumadin- subtherapeutic- to hold Will need GI assessment. Hyperkalemia- for treatment with kayexalate.
[2017-11-06] MEDS ORDERED: SODIUM POLYSTYRENE SULFONATE 15 GM/60 ML BOTTLE PO ONE (16:15)
[2017-11-06] MEDS ORDERED: SODIUM POLYSTYRENE SULFONATE 15 GM/60 ML BOTTLE ONE (18:31)
[2017-11-06] MEDS: AMINO ACIDS/PROTEIN HYDROLYS 30 ML LIQUID.PKT PO SCH (18:54)
[2017-11-06 19:04] LABS: ANISOCYTOSIS 2+
[2017-11-06 19:05] LABS: MACROCYTOSIS 1+; OVALOCYTE 1+; PLATELET ESTIMATE SLT DECREASE
[2017-11-06] MEDS ORDERED: METOPROLOL TARTRATE 50 MG TABLET (FP) ONE (22:44)
[2017-11-06] MEDS: BUDESONIDE/FORMETEROL FUMARATE 160/4.5 mcg INHALER IH SCH (22:55)
[2017-11-06] MEDS: METOPROLOL TARTRATE 50 MG TABLET (FP) PO SCH (23:51)
[2017-11-07] MEDS ORDERED: LEVOTHYROXINE NA 125 MCG TABLET (FP) PO SCH (07:00)
[2017-11-07] MEDS ORDERED: LEVOTHYROXINE NA 25 MCG TABLET (FP) ONE (07:23)
[2017-11-07 07:25] LABS: BASO % 0.1 % (0-2.0); EOS % 0.2 % (0-4.5); HEMATOCRIT 19.4 % (32.4-45.2); LYMPH % 7.4 % (8-40); MCH 30.3 pg (25.7-33.7); MCHC 33.8 g/dl (32.0-36.0); MEAN CELL VOLUME 89.5 fl (80-96); MEAN PLT VOLUME 8.4 fl (7.5-11.1); MONO % 6.5 % (3.8-10.2); NEUT % 85.8 % (42.8-82.8); PLATELET COUNT 83 K/MM3 (134-434); RBC 2.17 M/mm3 (3.60-5.2); RDW 19.9 % (11.6-15.6); WHITE BLOOD COUNT 7.1 K/mm3 (4.0-10.0)
[2017-11-07 08:04] LABS: HEMOGLOBIN 6.6 GM/dL (10.7-15.3)
--- NOTE | 2017-11-07 08:22 | CON.GI ---
Consult Consult Specialty:: Gastroenterology Referred by:: Dr Martinez Reason for Consultation:: Hematemesis - History of Present Illness Chief Complaint: Black emesis after Taxol chemotherapy History of Present Illness: 77F has little recollection of the event leading to this admission. She is reported to have has black emesis x 1 episode. She does recall vomiting but cannot recall the color. She denies black stools. She denies abdominal pain and any nausea today as she has begun to eat breakfast. She is on Coumadin. She completed RT in 09/16 when I last saw her for limited hematochezia when she and family opted against colonoscopy. She last had a colonoscopy with Dr Palencia in 2004 which revealed only hemorrhoids. 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: CVA, TIA, Other (HEALTHCARE ACCOUNT MANAGER atrophy on MRI) Cardio/Vascular: Yes: AFIB (left PPM), HTN, Hyperlipdemia, Murmur Pulmonary: Yes: COPD Hepatobiliary: Yes: Cholelithiasis Renal/: Yes: Renal Calculi Heme/Onc: Yes: Cancer (Advanced breast cancer s/p RT and now on Taxol) Musculoskeletal: Yes: Chronic low back pain (back pains currently), Other ( improved s/p RT) Endocrine: Yes: Hypothyroidism - Past Surgical History Past Surgical History: Yes: Appendectomy, Colonoscopy, Mastectomy (Left), Permanent Pacemaker, Tonsillectomy - Alcohol/Substance Use Hx Alcohol Use: No History of Substance Use: reports: None - Smoking History Smoking history: Former smoker Have you smoked in the past 12 months: No Aproximately how many cigarettes per day: 4 If you are a former smoker, when did you quit?: 1979 - Social History Usual Living Arrangement: With Child ADL: Family Assistance Place of : [facility] History of Recent Travel: No Home Medications - Allergies Allergies/Adverse Reactions: Allergies Allergy/AdvReac Type Severity Reaction Status Date / Time No Known Drug Allergies Allergy Verified 11/06/17 10:42 - Home Medications Home Medications: Ambulatory Orders Metoprolol Tartrate [Lopressor -] 50 mg PO BID 12/29/13 Warfarin Na [Coumadin -] 2.5 mg PO DAILY@1800 tablet 09/27/17 Folic Acid/Multivit-Min/Lutein [Multi-Vitamin Gummies] 1 tab PO DAILY 11/06/17 Levothyroxine 0.125 mg PO DAILY 11/06/17 Prochlorperazine 10 mg PO DAILY 11/06/17 Ranitidine [Zantac -] 150 mg PO DAILY 11/06/17 Family Disease History - Family Disease History Family Disease History: CA: Daughter (breast cancer), Respiratory: Mother ( 74 ? cause), Other: Father ( 67 ? cause) Review of Systems - Review of Systems Constitutional: reports: Loss of Appetite, Malaise, Unintentional Wgt. Loss, Weakness Eyes: reports: No Symptoms HENT: reports: No Symptoms Neck: reports: No Symptoms Cardiovascular: reports: Shortness of Breath Respiratory: reports: Exercise Intolerance, SOB on Exertion Gastrointestinal: reports: Vomiting Musculoskeletal: reports: Back Pain Physical Exam-GI Vital Signs: Vital Signs Temperature 97.7 F 11/07/17 07:57 Pulse Rate 72 11/07/17 07:57 Respiratory Rate 18 11/07/17 07:57 Blood Pressure 106/76 11/07/17 07:57 O2 Sat by Pulse Oximetry (%) 100 11/07/17 07:57 CBC,CMP WBC 7.1 K/mm3 (4.0-10.0) 11/07/17 06:30 RBC 2.17 M/mm3 (3.60-5.2) L 11/07/17 06:30 Hgb 6.6 GM/dL (10.7-15.3) L* 11/07/17 06:30 Hct 19.4 % (32.4-45.2) L D 11/07/17 06:30 MCV 89.5 fl (80-96) 11/07/17 06:30 MCH 30.3 pg (25.7-33.7) 11/07/17 06:30 MCHC 33.8 g/dl (32.0-36.0) 11/07/17 06:30 RDW 19.9 % (11.6-15.6) H 11/07/17 06:30 Plt Count 83 K/MM3 (134-434) L D 11/07/17 06:30 MPV 8.4 fl (7.5-11.1) 11/07/17 06:30 Absolute Neuts (auto) 6.0 # 11/07/17 06:30 Neutrophils % 85.8 % (42.8-82.8) H 11/07/17 06:30 Neutrophils % (Manual) 90.0 % (42.8-82.8) H 11/06/17 12:13 Lymphocytes % 7.4 % (8-40) L D 11/07/17 06:30 Lymphocytes % (Manual) 5.0 % (8-40) L D 11/06/17 12:13 Monocytes % 6.5 % (3.8-10.2) 11/07/17 06:30 Monocytes % (Manual) 5 % (3.8-10.2) D 11/06/17 12:13 Eosinophils % 0.2 % (0-4.5) D 11/07/17 06:30 Basophils % 0.1 % (0-2.0) 11/07/17 06:30 Nucleated RBC % 0 % (0-0) 11/07/17 06:30 Hypochromia 2+ 11/06/17 12:13 Platelet Estimate Slt decrease 11/06/17 12:13 Platelet Comment No clumping noted 11/06/17 12:13 Polychromasia 1+ 11/06/17 12:13 Anisocytosis 2+ 11/06/17 12:13 Microcytosis 1+ 11/06/17 12:13 Macrocytosis 1+ 11/06/17 12:13 Ovalocytes 1+ 11/06/17 12:13 Sodium 140 mmol/L (136-145) 11/06/17 12:13 Potassium 5.7 mmol/L (3.5-5.1) H 11/06/17 12:13 Chloride 103 mmol/L (98-107) 11/06/17 12:13 Carbon Dioxide 24 mmol/L (21-32) 11/06/17 12:13 Anion Gap 13 (8-16) 11/06/17 12:13 BUN 87 mg/dL (7-18) H D 11/06/17 12:13 Creatinine 1.0 mg/dL (0.55-1.02) 11/06/17 12:13 Creat Clearance w eGFR 54.05 (>60) 11/06/17 12:13 Random Glucose 145 mg/dL (74-106) H 11/06/17 12:13 Calcium 9.2 mg/dL (8.5-10.1) 11/06/17 12:13 Total Bilirubin 0.4 mg/dL (0.2-1.0) 11/06/17 12:13 AST 40 U/L (15-37) H 11/06/17 12:13 ALT 31 U/L (12-78) 11/06/17 12:13 Alkaline Phosphatase 110 U/L (45-117) D 11/06/17 12:13 Total Protein 5.6 g/dl (6.4-8.2) L 11/06/17 12:13 Albumin 2.9 g/dl (3.4-5.0) L 11/06/17 12:13 Current Medications Generic Name Dose Route Start Last Admin Trade Name Freq PRN Reason Stop Dose Admin Amino Acids 30 ml 11/06/17 17:30 11/06/17 18:54 Prosource No Carb Liquid Pkt PO 30 ml BID@0800,1730 DESTIN Administration Budesonide/Formoterol Fumarate 2 puff 11/06/17 22:00 11/06/17 22:55 Symbicort 160/4.5mcg - IH 2 puff BID DESTIN Administration Sodium Chloride 1,000 mls @ 100 mls/hr 11/06/17 11:00 11/06/17 12:19 Normal Saline - IV 100 mls/hr ASDIR DESTIN Administration Dextrose/Sodium Chloride 1,000 mls @ 60 mls/hr 11/06/17 13:30 11/06/17 13:46 D5-1/2ns - IV 60 mls/hr ASDIR DESTIN Administration Pantoprazole Sodium 40 mg/ 100 mls @ 200 mls/hr 11/07/17 10:00 Sodium Chloride IVPB DAILY DESTIN Levothyroxine Sodium 125 mcg 11/07/17 07:00 11/07/17 07:11 Synthroid - PO 125 mcg DAILY@0700 DESTIN Administration Metoprolol Tartrate 50 mg 11/06/17 22:00 11/06/17 23:51 Lopressor - PO Not Given BID DESTIN Multivitamins/Minerals/Vitamin C 1 tab 11/07/17 10:00 Tab-A-Vit - PO DAILY DESTIN Ondansetron HCl 4 mg 11/06/17 13:15 Zofran Injection IVPB Q6H PRN NAUSEA Constitutional: Yes: Calm Eyes: Yes: Conjunctiva Clear HENT: Yes: Normocephalic Neck: Yes: Supple Cardiovascular: Yes: Pulse Irregular, Other (left PPM) Respiratory: Yes: CTA Bilaterally Gastrointestinal Inspection: Yes: Scars (RLQ healed incision) ...Auscultate: Yes: Normoactive Bowel Sounds ...Palpate: Yes: Soft, Other (nontender) ...Rectal Exam: Yes: Guaiac Negative (brown guaiac negative stool, no masses), Hemorrhoids/External (soft) Labs: CBC, BMP 11/07/17 06:30 INR, PTT INR 1.68 (0.83-1.09) H 11/06/17 12:13 Problem List - Problems (1) Hematemesis Assessment/Plan: Not clear whether this was bloody hematemesis or vomiting of stagnant small bowel contents that can have coffee ground appearance. I have offered an EGD to exclude an ulcer, stress gastritis ( on steroids), GERD, AVMs, neoplasm and other etiologies but Brian is deferring this decision to her daughters. I will discuss with them when they arrive. Would empirically continue PPI. Code(s): K92.0 - HEMATEMESIS (2) Breast cancer Code(s): C50.919 - MALIGNANT NEOPLASM OF UNSP SITE OF UNSPECIFIED FEMALE BREAST Qualifiers: Breast location: central portion of breast Laterality: left
[2017-11-07 08:35] LABS: ALBUMIN 2.3 g/dl (3.4-5.0); ANION GAP 8 (8-16); BLOOD UREA NITROGEN 74 mg/dL (7-18); CALCIUM 8.2 mg/dL (8.5-10.1); CHLORIDE 108 mmol/L (98-107); CO2 28 mmol/L (21-32); GLUCOSE,RANDOM 93 mg/dL (74-106); POTASSIUM 5.3 mmol/L (3.5-5.1); SODIUM 144 mmol/L (136-145)
[2017-11-07 08:40] LABS: ALK PHOS 80 U/L (45-117); BILIRUBIN,TOTAL 0.3 mg/dL (0.2-1.0); CREATININE 0.7 mg/dL (0.55-1.02); SGOT/AST 65 U/L (15-37); SGPT/ALT 26 U/L (12-78); TOT PROT 4.4 g/dl (6.4-8.2)
--- NOTE | 2017-11-07 09:04 | HP ---
Admitting History and Physical - Admission History of Present Illness: 77 year old female with a significant past medical history of Atrial fibrillation on coumadin, CVA, HTN, HLD, COPD, and metastatic breast CA, who presents to the hospital at the request of Dr. Ortiz for r/o GI bleed with weakness, chills, and dark emesis today. The patient states she usually becomes nauseous after chemotherapy, however, noticed an increase in overall weakness after her most recent chemotherapy treatment about 3-4 days ago. The patient states she noticed her emesis to be dark "almost black" this morning. She reports her BM this morning was formed, however, she states she did not look at the color of her stool. She states she feels more weak than her usual today. She also states she has some mild lower abdominal pain which is nonradiating. She denies any exacerbating or alleviating factors of pain. 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: CVA, TIA, Other (MILITARY PERSONNEL SPECIALIST atrophy on MRI) Cardiovascular: Yes: AFIB (left PPM), HTN, Hyperlipdemia, Murmur Pulmonary: Yes: COPD Hepatobiliary: Yes: Cholelithiasis Renal/: Yes: Renal Calculi ...: 4 ...Para: 4 Heme/Onc: Yes: Cancer (Advanced breast cancer s/p RT and now on Taxol) Musculoskeletal: Yes: Chronic low back pain (back pains currently), Other ( improved s/p RT) Endocrine: Yes: Hypothyroidism - Past Surgical History Past Surgical History: Yes: Appendectomy, Colonoscopy, Mastectomy (Left), Permanent Pacemaker, Tonsillectomy - Smoking History Smoking history: Former smoker Have you smoked in the past 12 months: No Aproximately how many cigarettes per day: 4 If you are a former smoker, when did you quit?: 1979 - Alcohol/Substance Use Hx Alcohol Use: No History of Substance Use: reports: None - Social History ADL: Family Assistance History of Recent Travel: No Home Medications - Allergies Allergies/Adverse Reactions: Allergies Allergy/AdvReac Type Severity Reaction Status Date / Time No Known Drug Allergies Allergy Verified 11/06/17 10:42 - Home Medications Home Medications: Ambulatory Orders Metoprolol Tartrate [Lopressor -] 50 mg PO BID 12/29/13 Warfarin Na [Coumadin -] 2.5 mg PO DAILY@1800 tablet 09/27/17 Folic Acid/Multivit-Min/Lutein [Multi-Vitamin Gummies] 1 tab PO DAILY 11/06/17 Levothyroxine 0.125 mg PO DAILY 11/06/17 Prochlorperazine 10 mg PO DAILY 11/06/17 Ranitidine [Zantac -] 150 mg PO DAILY 11/06/17 Family Disease History - Family Disease History Family Disease History: CA: Daughter (breast cancer), Respiratory: Mother ( 74 ? cause), Other: Father ( 67 ? cause) Review of Systems - Review of Systems Cardiovascular: denies: Chest Pain, Edema Respiratory: reports: SOB on Exertion Gastrointestinal: reports: Melena, Vomiting. denies: Abdominal Pain Physical Examination Vital Signs: Vital Signs Temperature 97.7 F 11/07/17 07:57 Pulse Rate 72 11/07/17 07:57 Respiratory Rate 18 11/07/17 07:57 Blood Pressure 106/76 11/07/17 07:57 O2 Sat by Pulse Oximetry (%) 100 11/07/17 07:57 Cardiovascular: Yes: S1, S2 Respiratory: Yes: Regular, CTA Bilaterally Gastrointestinal: Yes: Normal Bowel Sounds, Soft. No: Tenderness Labs: CBC, BMP 11/07/17 06:30 Problem List - Problems (1) Gastrointestinal bleed Assessment/Plan: -PPI -GI ON CASE -FOLLOW LABS -TRANSFUSE -DC AC Code(s): K92.2 - GASTROINTESTINAL HEMORRHAGE, UNSPECIFIED (2) Hematemesis Assessment/Plan: - ABOVE Code(s): K92.0 - HEMATEMESIS (3) A-fib Assessment/Plan: -DC AC -MONITOR RATE -TELE Code(s): I48.91 - UNSPECIFIED ATRIAL FIBRILLATION Qualifiers: Atrial fibrillation type: chronic Qualified Code(s): I48.2 - Chronic atrial fibrillation (4) Breast cancer Assessment/Plan: -ONCOLOGY ON CASE Code(s): C50.919 - MALIGNANT NEOPLASM OF UNSP SITE OF UNSPECIFIED FEMALE BREAST Qualifiers: Breast location: central portion of breast Laterality: left
[2017-11-07] MEDS ORDERED: PHYTONADIONE 10 MG/1 ML AMP IVPB ONE (09:30)
[2017-11-07] MEDS ORDERED: PANTOPRAZOLE SODIUM 40 MG VIAL IVPUSH SCH (10:00)
[2017-11-07] MEDS ORDERED: LUTEIN PO SCH (10:00)
[2017-11-07] MEDS ORDERED: FOLIC ACID PO SCH (10:00)
[2017-11-07] MEDS ORDERED: PANTOPRAZOLE SODIUM 40 MG in SODIUM CHLORIDE 100 ML IVPB SCH (10:00)
[2017-11-07] MEDS ORDERED: MULTIVIT MIN PO SCH (10:00)
[2017-11-07] MEDS ORDERED: [UNRECOGNIZED DRUG - OTHER] PO SCH (10:00)
[2017-11-07] MEDS ORDERED: MULTIVITAMINS (DAILY MVI) TABLET (FP) PO SCH (10:00)
[2017-11-07] MEDS ORDERED: PHYTONADIONE 10 MG/1 ML AMP ONE (10:23)
[2017-11-07] MEDS: BUDESONIDE/FORMETEROL FUMARATE 160/4.5 mcg INHALER IH SCH ×3 (10:34→21:42)
[2017-11-07] MEDS: AMINO ACIDS/PROTEIN HYDROLYS 30 ML LIQUID.PKT PO SCH ×2 (10:34→17:54)
--- NOTE | 2017-11-07 11:25 | PN ---
Progress Note (short form) - Note Progress Note: GI NOte> I have discussed EGD with both of Brian's daughters including informing them of the risks of perforation and hemorrhage. The risks of anesthesia and were discussed and they want to have the DNR reversed for the purposes of the procedure. I have scheduled it for tomorrow. Problem List - Problems (1) Hematemesis Code(s): K92.0 - HEMATEMESIS (2) Breast cancer Code(s): C50.919 - MALIGNANT NEOPLASM OF UNSP SITE OF UNSPECIFIED FEMALE BREAST Qualifiers: Breast location: central portion of breast Laterality: left
[2017-11-07] MEDS: METOPROLOL TARTRATE 50 MG TABLET (FP) PO SCH ×3 (11:31→21:42)
[2017-11-07] MEDS: PANTOPRAZOLE SODIUM 160 MG in SODIUM CHLORIDE 290 ML IVPB SCH ×2 (11:49→19:28)
[2017-11-07] MEDS: SODIUM CHLORIDE 1,000 ML IV SCH ×2 (11:49→21:42)
[2017-11-07] MEDS: DEXTROSE 5%-0.45% SALINE 1,000 ML IV SCH (13:52)
--- NOTE | 2017-11-07 16:49 | EKG ---
Test Reason : Blood Pressure : / mmHG Vent. Rate : 106 BPM Atrial Rate : 340 BPM P-R Int : 000 ms QRS Dur : 086 ms QT Int : 334 ms P-R-T Axes : 000 065 085 degrees QTc Int : 443 ms ATRIAL FIBRILLATION WITH RAPID VENTRICULAR RESPONSE NONSPECIFIC ST AND T WAVE ABNORMALITY ABNORMAL ECG WHEN COMPARED WITH ECG OF 21-SEP-2017 23:56, ATRIAL FIBRILLATION HAS REPLACED ELECTRONIC VENTRICULAR PACEMAKER Confirmed by MICHAEL REHMAN, ALYSSIA ([id number]) on 11/07/2017 3:49:45 PM Referred By: Confirmed By:ALYSSIA RODRIGUEZ MD
--- NOTE | 2017-11-07 19:11 | PN ---
Progress Note (short form) - Note Progress Note: Patient seen and examined For EGD No further emesis Last Vital Signs Temp Pulse Resp BP Pulse Ox 98.5 F 146 H 18 128/67 100 11/07/17 18:44 11/07/17 18:44 11/07/17 18:44 11/07/17 18:44 11/07/17 07:57 HEENT: LEMUEL, EOM Intact Oropharynx: No thrush, No mucositis Cor:irregular Lungs: rales bases Abd: Soft, Ext:No significant edema CBC, BMP 11/07/17 06:30 11/07/17 06:30 INR, PTT INR 1.68 (0.83-1.09) H 11/06/17 12:13 Current Medications Generic Name Dose Route Start Last Admin Trade Name Freq PRN Reason Stop Dose Admin Amino Acids 30 ml 11/06/17 17:30 11/07/17 17:54 Prosource No Carb Liquid Pkt PO Not Given BID@0800,1730 DESTIN Budesonide/Formoterol Fumarate 2 puff 11/06/17 22:00 11/07/17 10:34 Symbicort 160/4.5mcg - IH 2 puff BID DESTIN Administration Sodium Chloride 1,000 mls @ 100 mls/hr 11/06/17 11:00 11/07/17 11:49 Normal Saline - IV 100 mls/hr ASDIR DESTIN Administration Dextrose/Sodium Chloride 1,000 mls @ 60 mls/hr 11/06/17 13:30 11/07/17 13:52 D5-1/2ns - IV 60 mls/hr ASDIR DESTIN Administration Pantoprazole Sodium 160 mg/ 290 mls @ 14.5 mls/hr 11/07/17 09:30 11/07/17 11: 49 Sodium Chloride IVPB 14.5 mls/hr Q10H DESTIN Administration 8 MG/HR Levothyroxine Sodium 125 mcg 11/07/17 07:00 11/07/17 07:11 Synthroid - PO 125 mcg DAILY@0700 DESTIN Administration Metoprolol Tartrate 50 mg 11/06/17 22:00 11/07/17 11:31 Lopressor - PO Not Given BID DESTIN Multivitamins/Minerals/Vitamin C 1 tab 11/07/17 10:00 11/07/17 11:31 Tab-A-Vit - PO 1 tab DAILY DESTIN Administration Ondansetron HCl 4 mg 11/06/17 13:15 Zofran Injection IVPB Q6H PRN NAUSEA Impression: GI bleeding -for EGD Metastatic breast ca Atrial fib A/C Coagulopathy secondary to coumadin Plan check CBC/coags post transfusion Hold A/c EGD Problem List - Problems (1) Gastrointestinal bleed Code(s): K92.2 - GASTROINTESTINAL HEMORRHAGE, UNSPECIFIED (2) Breast cancer, left Code(s): C50.912 - MALIGNANT NEOPLASM OF UNSPECIFIED SITE OF LEFT FEMALE BREAST Qualifiers: Estrogen receptor status: positive Patient sex: female (3) Hyperkalemia Code(s): E87.5 - HYPERKALEMIA
[2017-11-07] MEDS ORDERED: METOPROLOL TARTRATE 50 MG TABLET (FP) PO ONE (19:15)
[2017-11-07] MEDS ORDERED: PT OWN MED DRAWER 7, Y5N ONE (19:26)
[2017-11-07 20:59] LABS: HEMATOCRIT 26.9 % (32.4-45.2); HEMOGLOBIN 9.3 GM/dL (10.7-15.3); MCH 29.9 pg (25.7-33.7); MCHC 34.6 g/dl (32.0-36.0); MEAN CELL VOLUME 86.5 fl (80-96); MEAN PLT VOLUME 8.8 fl (7.5-11.1); PLATELET COUNT 68 K/MM3 (134-434); RBC 3.11 M/mm3 (3.60-5.2)
[2017-11-07] MEDS: BACITRACIN 15 GM TUBE TOPICAL OINTMENT TP SCH ×2 (21:25)
[2017-11-07] MEDS ORDERED: ONDANSETRON 4 MG/2 ML VIAL IVPB PRN (21:33)
[2017-11-08] MEDS ORDERED: PT OWN MED DRAWER 7, Y5N ONE ×2 (04:14→09:59)
[2017-11-08] MEDS: DEXTROSE 5%-0.45% SALINE 1,000 ML IV SCH ×3 (04:16→21:42)
[2017-11-08] MEDS ORDERED: PANTOPRAZOLE SODIUM 80 MG in SODIUM CHLORIDE 100 ML IVPB SCH (04:45)
[2017-11-08] MEDS: LEVOTHYROXINE NA 125 MCG TABLET (FP) PO SCH (06:09)
[2017-11-08 06:35] LABS: BASO % 0.9 % (0-2.0); EOS % 0.9 % (0-4.5); HEMATOCRIT 25.3 % (32.4-45.2); LYMPH % 3.3 % (8-40); MCH 30.6 pg (25.7-33.7); MCHC 35.5 g/dl (32.0-36.0); MEAN CELL VOLUME 86.3 fl (80-96); MEAN PLT VOLUME 8.6 fl (7.5-11.1); MONO % 5.8 % (3.8-10.2); NEUT % 89.1 % (42.8-82.8); PLATELET COUNT 64 K/MM3 (134-434); RBC 2.93 M/mm3 (3.60-5.2); RDW 17.6 % (11.6-15.6); WHITE BLOOD COUNT 9.1 K/mm3 (4.0-10.0)
[2017-11-08 06:58] LABS: ANION GAP 8 (8-16); BLOOD UREA NITROGEN 41 mg/dL (7-18); CHLORIDE 111 mmol/L (98-107); CO2 25 mmol/L (21-32); GLUCOSE,RANDOM 83 mg/dL (74-106); SODIUM 144 mmol/L (136-145)
[2017-11-08 06:59] LABS: CALCIUM 8.2 mg/dL (8.5-10.1); CREATININE 0.6 mg/dL (0.55-1.02)
[2017-11-08 07:06] LABS: INR 0.96 (0.83-1.09); PROTHROMBIN TIME (PATIENT) 10.8 SEC (9.7-13.0)
--- NOTE | 2017-11-08 07:56 | PN ---
Progress Note, Physician - Current Medication List Current Medications: Active Medications Amino Acids (Prosource No Carb Liquid Pkt) 30 ml PO BID@0800,1730 [facility] Bacitracin (Bacitracin -) 1 applic TP BID [facility] Last Admin: 11/07/17 21:25 Dose: 1 applic Budesonide/Formoterol Fumarate (Symbicort 160/4.5mcg -) 2 puff IH BID [facility] Last Admin: 11/07/17 21:42 Dose: Not Given Dextrose/Sodium Chloride (D5-1/2ns -) 1,000 mls @ 60 mls/hr IV ASDIR [facility] Last Admin: 11/08/17 04:16 Dose: 60 mls/hr Pantoprazole Sodium 80 mg/ (Sodium Chloride) 100 mls @ 10 mls/hr IVPB Q10H [facility] Last Admin: 11/08/17 04:16 Dose: 10 mls/hr Sodium Chloride (Normal Saline -) 1,000 mls @ 100 mls/hr IV ASDIR [facility] Last Admin: 11/07/17 21:42 Dose: Not Given Levothyroxine Sodium (Synthroid -) 125 mcg PO DAILY@0700 [facility] Last Admin: 11/08/17 06:09 Dose: Not Given Metoprolol Tartrate (Lopressor -) 50 mg PO BID [facility] Last Admin: 11/07/17 21:42 Dose: Not Given Multivitamins/Minerals/Vitamin C (Tab-A-Vit -) 1 tab PO DAILY [facility] Ondansetron HCl (Zofran Injection) 4 mg IVPB Q6H PRN PRN Reason: NAUSEA - Objective Vital Signs: Vital Signs Temperature 98.4 F 11/08/17 05:46 Pulse Rate 101 H 11/08/17 05:46 Respiratory Rate 18 11/08/17 05:46 Blood Pressure 119/77 11/08/17 05:46 O2 Sat by Pulse Oximetry (%) 100 11/08/17 02:00 Cardiovascular: Yes: Pulse Irregular, S1, S2 Respiratory: Yes: Regular, CTA Bilaterally Gastrointestinal: Yes: Normal Bowel Sounds, Soft. No: Tenderness Labs: CBC, BMP 11/08/17 05:45 11/08/17 05:45 INR, PTT INR 0.96 (0.83-1.09) 11/08/17 05:45 Problem List - Problems (1) Gastrointestinal bleed Assessment/Plan: -PPI -GI ON CASE FOR EGD -FOLLOW LABS -TRANSFUSE -DC AC Code(s): K92.2 - GASTROINTESTINAL HEMORRHAGE, UNSPECIFIED (2) Hematemesis Assessment/Plan: -RESOLVED - ABOVE Code(s): K92.0 - HEMATEMESIS (3) A-fib Assessment/Plan: -DC AC -MONITOR RATE -TELE Code(s): I48.91 - UNSPECIFIED ATRIAL FIBRILLATION Qualifiers: Atrial fibrillation type: chronic Qualified Code(s): I48.2 - Chronic atrial fibrillation (4) Breast cancer Assessment/Plan: -ONCOLOGY ON CASE Code(s): C50.919 - MALIGNANT NEOPLASM OF UNSP SITE OF UNSPECIFIED FEMALE BREAST Qualifiers: Breast location: central portion of breast Laterality: left
[2017-11-08] MEDS: AMINO ACIDS/PROTEIN HYDROLYS 30 ML LIQUID.PKT PO SCH ×2 (08:00→18:12)
[2017-11-08] MEDS: BUDESONIDE/FORMETEROL FUMARATE 160/4.5 mcg INHALER IH SCH ×2 (10:02→21:43)
[2017-11-08] MEDS: BACITRACIN 15 GM TUBE TOPICAL OINTMENT TP SCH ×2 (10:02→21:42)
[2017-11-08] MEDS ORDERED: PROPOFOL 20 ML ONE ×2 (11:40)
--- NOTE | 2017-11-08 13:28 | PN ---
Progress Note (short form) - Note Progress Note: GI Procedure NOte: Please see EGD report. 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 This is the source of recent bleeding. The scope was able to be pass through this stricture but it is obstructive. I have discussed this with Brian and her daughter and explained the need for multiple small meals. Dr Sterling will be covering this weekend. Problem List - Problems (1) Hematemesis Code(s): K92.0 - HEMATEMESIS (2) Breast cancer Code(s): C50.919 - MALIGNANT NEOPLASM OF UNSP SITE OF UNSPECIFIED FEMALE BREAST Qualifiers: Breast location: central portion of breast Laterality: left
[2017-11-08] MEDS: MAG HYDROX/AL HYDROX/SIMETH 30 ML UNIT-DOSE CUP PO SCH ×2 (14:38→18:11)
[2017-11-08] MEDS: METOPROLOL TARTRATE 50 MG TABLET (FP) PO SCH ×2 (14:39→21:42)
[2017-11-08] MEDS: MULTIVITAMINS (DAILY MVI) TABLET (FP) PO SCH (14:39)
[2017-11-08] MEDS: SUCRALFATE 1 GM/10 ML UNIT DOSE CUPS PO SCH ×2 (18:11→21:42)
[2017-11-08] MEDS: SODIUM CHLORIDE 1,000 ML IV SCH (21:42)
[2017-11-08] MEDS: PANTOPRAZOLE SODIUM 40 MG VIAL IVPUSH SCH (21:42)
[2017-11-09] MEDS: MAG HYDROX/AL HYDROX/SIMETH 30 ML UNIT-DOSE CUP PO SCH ×4 (00:26→17:21)
[2017-11-09 05:55] LABS: BASO % 0.2 % (0-2.0); EOS % 0.6 % (0-4.5); HEMATOCRIT 22.8 % (32.4-45.2); MCH 30.8 pg (25.7-33.7); MCHC 35.2 g/dl (32.0-36.0); MEAN CELL VOLUME 87.6 fl (80-96); MEAN PLT VOLUME 8.8 fl (7.5-11.1); MONO % 9.5 % (3.8-10.2); NEUT % 85.7 % (42.8-82.8); PLATELET COUNT 64 K/MM3 (134-434); RBC 2.61 M/mm3 (3.60-5.2); RDW 17.6 % (11.6-15.6); WHITE BLOOD COUNT 7.3 K/mm3 (4.0-10.0)
[2017-11-09] MEDS: LEVOTHYROXINE NA 125 MCG TABLET (FP) PO SCH (06:00)
--- NOTE | 2017-11-09 06:09 | PN ---
Progress Note, Physician Chief Complaint: GI bleed History of Present Illness: Episode of slurred speech earlier this AM CT head negative for any acute pathology - Current Medication List Current Medications: Active Medications Al Hydroxide/Mg Hydroxide (Mylanta Oral Suspension -) 30 ml PO Q6HPO [facility] Last Admin: 11/09/17 06:00 Dose: 30 ml Amino Acids (Prosource No Carb Liquid Pkt) 30 ml PO BID@0800,1730 [facility] Last Admin: 11/08/17 18:12 Dose: 30 ml Bacitracin (Bacitracin -) 1 applic TP BID [facility] Last Admin: 11/08/17 21:42 Dose: 1 applic Budesonide/Formoterol Fumarate (Symbicort 160/4.5mcg -) 2 puff IH BID [facility] Last Admin: 11/08/17 21:43 Dose: 2 puff Dextrose/Sodium Chloride (D5-1/2ns -) 1,000 mls @ 60 mls/hr IV ASDIR [facility] Last Admin: 11/08/17 21:42 Dose: 60 mls/hr Sodium Chloride (Normal Saline -) 1,000 mls @ 100 mls/hr IV ASDIR [facility] Last Admin: 11/08/17 21:42 Dose: Not Given Levothyroxine Sodium (Synthroid -) 125 mcg PO DAILY@0700 [facility] Last Admin: 11/09/17 06:00 Dose: 125 mcg Metoprolol Tartrate (Lopressor -) 50 mg PO BID [facility] Last Admin: 11/08/17 21:42 Dose: 50 mg Multivitamins/Minerals/Vitamin C (Tab-A-Vit -) 1 tab PO DAILY [facility] Last Admin: 11/08/17 14:39 Dose: 1 tab Ondansetron HCl (Zofran Injection) 4 mg IVPB Q6H PRN PRN Reason: NAUSEA Pantoprazole Sodium (Protonix Iv) 40 mg IVPUSH BID [facility] Last Admin: 11/08/17 21:42 Dose: 40 mg Sucralfate (Carafate Oral Suspension -) 1 gm PO QID [facility] Last Admin: 11/08/17 21:42 Dose: 1 gm - Objective Vital Signs: Vital Signs Temperature 98.8 F 11/08/17 21:49 Pulse Rate 93 H 11/08/17 21:49 Respiratory Rate 18 11/08/17 21:49 Blood Pressure 117/65 11/08/17 21:49 O2 Sat by Pulse Oximetry (%) 99 11/08/17 22:00 Constitutional: Yes: No Distress, Calm, Cachectic Cardiovascular: Yes: Regular Rate and Rhythm Respiratory: Yes: Regular Gastrointestinal: Yes: Normal Bowel Sounds, Soft Musculoskeletal: Yes: WNL Extremities: Yes: WNL Edema: No Peripheral Pulses WNL: Yes Neurological: Yes: Alert, Oriented, Weakness Psychiatric: Yes: Alert, Oriented Labs: INR, PTT INR 0.96 (0.83-1.09) 11/08/17 05:45 Problem List - Problems (1) Hematemesis Assessment/Plan: -Had EGD this admission-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 , source of the bleed -Seen by GI -H/H gradually dropping -AC on hold Code(s): K92.0 - HEMATEMESIS (2) Weakness Assessment/Plan: -OOB -Physical therapy Code(s): R53.1 - WEAKNESS (3) A-fib Assessment/Plan: -Chronic -AC on hold due to GI bleed -Tele monitoring Code(s): I48.91 - UNSPECIFIED ATRIAL FIBRILLATION Qualifiers: Atrial fibrillation type: chronic Qualified Code(s): I48.2 - Chronic atrial fibrillation (4) Slurred speech Assessment/Plan: -CT head unremarkable -Unable to do MRI due to PM -Neurology consult -Passed bedside swallow, was able to take her medications with no coughing Code(s): R47.81 - SLURRED SPEECH (5) Breast cancer Assessment/Plan: -Oncology on board Code(s): C50.919 - MALIGNANT NEOPLASM OF UNSP SITE OF UNSPECIFIED FEMALE BREAST Qualifiers: Breast location: central portion of breast Laterality: left Assessment/Plan see problem list Spoke to daughter at bedside
[2017-11-09 06:17] LABS: ALBUMIN 2.1 g/dl (3.4-5.0); ALK PHOS 73 U/L (45-117); ANION GAP 7 (8-16); BILIRUBIN,TOTAL 0.8 mg/dL (0.2-1.0); BLOOD UREA NITROGEN 28 mg/dL (7-18); CALCIUM 8.1 mg/dL (8.5-10.1); CHLORIDE 109 mmol/L (98-107); CO2 26 mmol/L (21-32); CREATININE 0.5 mg/dL (0.55-1.02); GLUCOSE,RANDOM 95 mg/dL (74-106); POTASSIUM 3.7 mmol/L (3.5-5.1); SGOT/AST 51 U/L (15-37); SGPT/ALT 20 U/L (12-78); SODIUM 142 mmol/L (136-145); TOT PROT 3.8 g/dl (6.4-8.2)
[2017-11-09] MEDS: METOPROLOL TARTRATE 50 MG TABLET (FP) PO SCH ×2 (11:04→22:14)
[2017-11-09] MEDS: SUCRALFATE 1 GM/10 ML UNIT DOSE CUPS PO SCH ×4 (11:04→22:15)
[2017-11-09] MEDS: PANTOPRAZOLE SODIUM 40 MG VIAL IVPUSH SCH (11:04)
[2017-11-09] MEDS: AMINO ACIDS/PROTEIN HYDROLYS 30 ML LIQUID.PKT PO SCH ×2 (11:04→17:21)
[2017-11-09] MEDS: MULTIVITAMINS (DAILY MVI) TABLET (FP) PO SCH (11:04)
[2017-11-09] MEDS ORDERED: PANTOPRAZOLE SODIUM 80 MG in SODIUM CHLORIDE 100 ML IVPB SCH (11:45)
[2017-11-09] MEDS: BACITRACIN 15 GM TUBE TOPICAL OINTMENT TP SCH ×2 (12:26→22:15)
[2017-11-09] MEDS: BUDESONIDE/FORMETEROL FUMARATE 160/4.5 mcg INHALER IH SCH ×2 (12:26→22:15)
[2017-11-09] MEDS: PANTOPRAZOLE SODIUM 160 MG in SODIUM CHLORIDE 290 ML IVPB SCH (13:50)
[2017-11-09] MEDS ORDERED: PT OWN MED DRAWER 7, Y5N ONE (19:09)
[2017-11-09] MEDS: MIRTAZAPINE 15 MG TABLET (FP) PO SCH (22:14)
[2017-11-09] MEDS: DEXTROSE 5%-0.45% SALINE 1,000 ML IV SCH (22:15)
[2017-11-10] MEDS: MAG HYDROX/AL HYDROX/SIMETH 30 ML UNIT-DOSE CUP PO SCH ×4 (01:04→18:30)
[2017-11-10] MEDS: LEVOTHYROXINE NA 125 MCG TABLET (FP) PO SCH (06:01)
[2017-11-10 07:43] LABS: BASO % 0.5 % (0-2.0); EOS % 0.8 % (0-4.5); HEMOGLOBIN 8.3 GM/dL (10.7-15.3); LYMPH % 5.8 % (8-40); MCH 30.8 pg (25.7-33.7); MCHC 34.5 g/dl (32.0-36.0); MEAN CELL VOLUME 89.1 fl (80-96); MEAN PLT VOLUME 9.3 fl (7.5-11.1); MONO % 13.4 % (3.8-10.2); NEUT % 79.5 % (42.8-82.8); PLATELET COUNT 72 K/MM3 (134-434); RBC 2.69 M/mm3 (3.60-5.2); RDW 17.6 % (11.6-15.6); WHITE BLOOD COUNT 7.2 K/mm3 (4.0-10.0)
[2017-11-10 08:06] LABS: ANION GAP 8 (8-16); BLOOD UREA NITROGEN 24 mg/dL (7-18); CHLORIDE 106 mmol/L (98-107); CO2 26 mmol/L (21-32); CREATININE 0.5 mg/dL (0.55-1.02); GLUCOSE,RANDOM 81 mg/dL (74-106); POTASSIUM 3.6 mmol/L (3.5-5.1); SGOT/AST 49 U/L (15-37); SGPT/ALT 22 U/L (12-78); SODIUM 140 mmol/L (136-145)
[2017-11-10 08:08] LABS: SERUM IRON SATURATION 11 % (15-55); TOTAL IRON BINDING CAPACITY 176 ug/dL (250-450); UIBC 156 ug/dL (118-369)
[2017-11-10 08:08] LABS: ALK PHOS 80 U/L (45-117); BILIRUBIN,TOTAL 0.7 mg/dL (0.2-1.0)
[2017-11-10] MEDS ORDERED: PT OWN MED DRAWER 7, Y5N ONE ×3 (09:08→12:36)
--- NOTE | 2017-11-10 09:54 | PN ---
Progress Note, Physician Chief Complaint: GI bleed History of Present Illness: Speech improved CT head negative for any acute pathology H/H stable at this time - Current Medication List Current Medications: Active Medications Al Hydroxide/Mg Hydroxide (Mylanta Oral Suspension -) 30 ml PO Q6HPO [facility] Last Admin: 11/10/17 06:01 Dose: 30 ml Amino Acids (Prosource No Carb Liquid Pkt) 30 ml PO BID@0800,1730 [facility] Last Admin: 11/09/17 17:21 Dose: 30 ml Bacitracin (Bacitracin -) 1 applic TP BID [facility] Last Admin: 11/09/17 22:15 Dose: 1 applic Budesonide/Formoterol Fumarate (Symbicort 160/4.5mcg -) 2 puff IH BID [facility] Last Admin: 11/09/17 22:15 Dose: 2 puff Dextrose/Sodium Chloride (D5-1/2ns -) 1,000 mls @ 60 mls/hr IV ASDIR [facility] Last Admin: 11/09/17 22:15 Dose: 60 mls/hr Pantoprazole Sodium 160 mg/ (Sodium Chloride) 290 mls @ 14.5 mls/hr IVPB Q20H [facility] Last Admin: 11/09/17 13:50 Dose: 14.5 mls/hr Levothyroxine Sodium (Synthroid -) 125 mcg PO DAILY@0700 [facility] Last Admin: 11/10/17 06:01 Dose: 125 mcg Metoprolol Tartrate (Lopressor -) 50 mg PO BID [facility] Last Admin: 11/09/17 22:14 Dose: 50 mg Mirtazapine (Remeron -) 7.5 mg PO HS [facility] Last Admin: 11/09/17 22:14 Dose: 7.5 mg Multivitamins/Minerals/Vitamin C (Tab-A-Vit -) 1 tab PO DAILY [facility] Last Admin: 11/09/17 11:04 Dose: 1 tab Ondansetron HCl (Zofran Injection) 4 mg IVPB Q6H PRN PRN Reason: NAUSEA Sucralfate (Carafate Oral Suspension -) 1 gm PO QID [facility] Last Admin: 11/09/17 22:15 Dose: 1 gm - Objective Vital Signs: Vital Signs Temperature 97.7 F 11/10/17 02:00 Pulse Rate 99 H 11/10/17 02:00 Respiratory Rate 20 11/10/17 02:00 Blood Pressure 115/61 11/10/17 02:00 O2 Sat by Pulse Oximetry (%) 99 11/10/17 06:00 Constitutional: Yes: No Distress, Calm, Cachectic Cardiovascular: Yes: Pulse Irregular Respiratory: Yes: Regular Gastrointestinal: Yes: Normal Bowel Sounds, Soft Musculoskeletal: Yes: Muscle Weakness Edema: No Peripheral Pulses WNL: Yes Neurological: Yes: Alert, Oriented Psychiatric: Yes: Alert, Oriented Labs: CBC, BMP 11/10/17 06:00 11/10/17 06:00 INR, PTT INR 0.96 (0.83-1.09) 11/08/17 05:45 Problem List - Problems (1) Hematemesis Assessment/Plan: -Had EGD this admission-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 , source of the bleed -Seen by GI -H/H gradually dropping -AC on hold Code(s): K92.0 - HEMATEMESIS (2) Weakness Assessment/Plan: -OOB -Physical therapy Code(s): R53.1 - WEAKNESS (3) A-fib Assessment/Plan: -Chronic -AC on hold due to GI bleed -Tele monitoring -Cardiology consult Code(s): I48.91 - UNSPECIFIED ATRIAL FIBRILLATION Qualifiers: Atrial fibrillation type: chronic Qualified Code(s): I48.2 - Chronic atrial fibrillation (4) Slurred speech Assessment/Plan: -CT head unremarkable -Unable to do MRI due to PM -Neurology consult pending -Cardiology consult -Passed bedside swallow, was able to take her medications with no coughing Code(s): R47.81 - SLURRED SPEECH (5) Breast cancer Assessment/Plan: -Oncology on board Code(s): C50.919 - MALIGNANT NEOPLASM OF UNSP SITE OF UNSPECIFIED FEMALE BREAST Qualifiers: Breast location: central portion of breast Laterality: left (6) Anemia Assessment/Plan: -Iron levels l ow -Venofer 200 mg daily x 3 days -monitor H/H -Transfuse for hgb<8.0 -Check B12 and thyroid profile as well Code(s): D64.9 - ANEMIA, UNSPECIFIED Assessment/Plan see problem list
[2017-11-10] MEDS: SUCRALFATE 1 GM/10 ML UNIT DOSE CUPS PO SCH ×4 (10:30→22:21)
[2017-11-10] MEDS: METOPROLOL TARTRATE 50 MG TABLET (FP) PO SCH ×2 (10:30→22:21)
[2017-11-10] MEDS: BUDESONIDE/FORMETEROL FUMARATE 160/4.5 mcg INHALER IH SCH ×2 (10:30→22:22)
[2017-11-10] MEDS: AMINO ACIDS/PROTEIN HYDROLYS 30 ML LIQUID.PKT PO SCH ×2 (10:30→18:30)
[2017-11-10] MEDS: MULTIVITAMINS (DAILY MVI) TABLET (FP) PO SCH (10:30)
[2017-11-10] MEDS: BACITRACIN 15 GM TUBE TOPICAL OINTMENT TP SCH ×2 (10:31→22:21)
[2017-11-10] MEDS: PANTOPRAZOLE SODIUM 160 MG in SODIUM CHLORIDE 290 ML IVPB SCH (12:39)
[2017-11-10] MEDS: IRON SUCROSE INJECTION 200 MG in SODIUM CHLORIDE 90 ML IVPB SCH (12:39)
--- NOTE | 2017-11-10 13:08 | CON.CARD ---
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: CVA, TIA, Other (MANAGER PIPELINE atrophy on MRI) Cardio/Vascular: Yes: AFIB (left PPM), HTN, Hyperlipdemia, Murmur Pulmonary: Yes: COPD Hepatobiliary: Yes: Cholelithiasis Renal/: Yes: Renal Calculi Musculoskeletal: Yes: Chronic low back pain (back pains currently), Other ( improved s/p RT) Endocrine: Yes: Hypothyroidism - Past Surgical History Past Surgical History: Yes: Appendectomy, Colonoscopy, Mastectomy (Left), Permanent Pacemaker, Tonsillectomy - Alcohol/Substance Use Hx Alcohol Use: No History of Substance Use: reports: None - Smoking History Smoking history: Former smoker Have you smoked in the past 12 months: No Aproximately how many cigarettes per day: 4 If you are a former smoker, when did you quit?: 1979 - Social History Usual Living Arrangement: With Child ADL: Family Assistance History of Recent Travel: No Home Medications - Allergies Allergies/Adverse Reactions: Allergies Allergy/AdvReac Type Severity Reaction Status Date / Time No Known Drug Allergies Allergy Verified 11/06/17 10:42 - Home Medications Home Medications: Ambulatory Orders Metoprolol Tartrate [Lopressor -] 50 mg PO BID 12/29/13 Warfarin Na [Coumadin -] 2.5 mg PO DAILY@1800 tablet 09/27/17 Folic Acid/Multivit-Min/Lutein [Multi-Vitamin Gummies] 1 tab PO DAILY 11/06/17 Levothyroxine 0.125 mg PO DAILY 11/06/17 Prochlorperazine 10 mg PO DAILY 11/06/17 Ranitidine [Zantac -] 150 mg PO DAILY 11/06/17 Family Disease History - Family Disease History Family Disease History: CA: Daughter (breast cancer), Respiratory: Mother ( 74 ? cause), Other: Father ( 67 ? cause) Review of Systems - Review of Systems Constitutional: reports: No Symptoms Eyes: reports: No Symptoms HENT: reports: No Symptoms Neck: reports: No Symptoms Cardiovascular: reports: No Symptoms Respiratory: reports: No Symptoms Gastrointestinal: reports: Vomiting Blood Genitourinary: reports: No Symptoms Breasts: reports: No Symptoms Reported Musculoskeletal: reports: No Symptoms Integumentary: reports: No Symptoms Neurological: reports: No Symptoms Endocrine: reports: No Symptoms Hematology/Lymphatic: reports: No Symptoms Psychiatric: reports: No Symptoms Vital Signs: Vital Signs Temperature 97.7 F 11/10/17 02:00 Pulse Rate 99 H 11/10/17 02:00 Respiratory Rate 20 11/10/17 02:00 Blood Pressure 115/61 11/10/17 02:00 O2 Sat by Pulse Oximetry (%) 99 11/10/17 06:00 Constitutional: Yes: Well Nourished, No Distress, Calm Eyes: Yes: WNL, Conjunctiva Clear, EOM Intact HENT: Yes: WNL, Atraumatic, Normocephalic Neck: Yes: WNL, Supple, Trachea Midline Respiratory: Yes: WNL, Regular, CTA Bilaterally Gastrointestinal: Yes: Normal Bowel Sounds, Soft Renal/: Yes: WNL Cardiovascular: Yes: Pulse Irregular JVD: No Carotid Bruit: No PMI: Non-Displaced Heart Sounds: Yes: S1, S2 Murmur: Yes: Systolic Murmur, Grade 2 Musculoskeletal: Yes: WNL Extremities: Yes: WNL Edema: No Peripheral Pulses: 1+ Left Carotid, 1+ Right Carotid, 1+ Left Femoral, 1+ Right Femoral, 1+ Left Popliteal, 1+ Right Popliteal, 1+ Left Doralis Pedis, 1+ Right Dorsalis Pedis Integumentary: Yes: WNL Neurological: Yes: WNL ...Motor Strength: WNL - Other Data Labs, Other Data: CBC, BMP 11/10/17 06:00 11/10/17 06:00 INR, PTT INR 0.96 (0.83-1.09) 11/08/17 05:45 Assessment/Plan 77-year-old female, with a history of hypertension, breast cancer, status post mastectomy, chronic atrial fibrillation on Coumadin, permanent pacemaker, now presenting with hematemesis. EGD revealed a large pyloric ulcer. Coumadin was held. The patient has been hemodynamically stable. Ventricular rates are well controlled in nature fibrillation. There is no need for further cardiac workup at this point. Anticoagulation should be resumed as soon as allowed by GI. There is no need for further cardiac monitoring. The patient is stable. Please do not hesitate to call us PRN
--- NOTE | 2017-11-10 17:50 | CON.NEURO ---
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 atrophy on MRI) Cardio/Vascular: Yes: AFIB (left PPM), HTN, Hyperlipdemia, Murmur Pulmonary: Yes: COPD Hepatobiliary: Yes: Cholelithiasis Renal/: Yes: Renal Calculi Musculoskeletal: Yes: Chronic low back pain (back pains currently), Other ( improved s/p RT) Endocrine: Yes: Hypothyroidism - Past Surgical History Past Surgical History: Yes: Appendectomy, Colonoscopy, Mastectomy (Left), Permanent Pacemaker, Tonsillectomy - Alcohol/Substance Use Hx Alcohol Use: No History of Substance Use: reports: None - Smoking History Smoking history: Former smoker Have you smoked in the past 12 months: No Aproximately how many cigarettes per day: 4 If you are a former smoker, when did you quit?: 1979 - Social History Usual Living Arrangement: With Child ADL: Family Assistance History of Recent Travel: No Home Medications - Allergies Allergies/Adverse Reactions: Allergies Allergy/AdvReac Type Severity Reaction Status Date / Time No Known Drug Allergies Allergy Verified 11/06/17 10:42 - Home Medications Home Medications: Ambulatory Orders Metoprolol Tartrate [Lopressor -] 50 mg PO BID 12/29/13 Warfarin Na [Coumadin -] 2.5 mg PO DAILY@1800 tablet 09/27/17 Folic Acid/Multivit-Min/Lutein [Multi-Vitamin Gummies] 1 tab PO DAILY 11/06/17 Levothyroxine 0.125 mg PO DAILY 11/06/17 Prochlorperazine 10 mg PO DAILY 11/06/17 Ranitidine [Zantac -] 150 mg PO DAILY 11/06/17 Family Disease History - Family Disease History Family Disease History: CA: Daughter (breast cancer), Respiratory: Mother ( 74 ? cause), Other: Father ( 67 ? cause) Physical Exam-Neuro Vital Signs: Vital Signs Temperature 98.4 F 11/10/17 13:25 Pulse Rate 84 11/10/17 13:25 Respiratory Rate 18 11/10/17 14:00 Blood Pressure 108/70 11/10/17 13:25 O2 Sat by Pulse Oximetry (%) 97 11/10/17 14:00 Labs: CBC, BMP 11/10/17 06:00 11/10/17 06:00 INR, PTT INR 0.96 (0.83-1.09) 11/08/17 05:45 Assessment/Plan cc slurring of speech HPI 77 year old female history of atrial fibrillation on coumadin, TIA/Stroke, HTN,HLD,COPD,Metastatic breast cancer. She presented with GI bleed and drop in H /H. Her coumadin was stopped and she has upper GI endocscopy. Patient has developed slurring of speech on november 09. She has been improving . Her daughter thinks she has slurring of speech comes and goes. SHe denies any motor weakness, cognitive dysfunciton, headhace, seizure. She cant get mri of brain due to pacemaker. She has not been treated with statin before. PMH ABOVE. FH,ROS,SH reviewed in chart Medication Metoprolol Tartrate [Lopressor -] 50 mg PO BID 12/29/13 Warfarin Na [Coumadin -] 2.5 mg PO DAILY@1800 tablet 09/27/17 on hold Folic Acid/Multivit-Min/Lutein [Multi-Vitamin Gummies] 1 tab PO DAILY 11/06/17 Levothyroxine 0.125 mg PO DAILY 11/06/17 Prochlorperazine 10 mg PO DAILY 11/06/17 Ranitidine [Zantac -] 150 mg PO DAILY 11/06/17 Neurological Examination Alert oriented x 3, speech is slurred no face asymmetry, eomi, pupils reactive no motor weakness reflex are generalized diminished ct head and carotid ultrasound unremarkable Assessment 77 year old female history of atrial fibrillation on coumadin, and coumadin was stopped for upper gi bled. She seem to have stroke secondary to stoppage of coumadin. ct head is normal. slurring of speech is improving. she is not on statin, SHE CANT GET MRI Plan - can not get mri, I would like to repeat ct head - speech eval - continue dvt prophylaxis, stroke education was discussed - suggest primary care to resume AC, whenever she can tolerate - repeat ct head to assess extent of stroke - overall prognosis and diagnosis was discussed with daughter and patient - regarding cognitive difficulty ( possible dementia) to assess outpatient thanking you so much Samuel Hwang MD
[2017-11-10] MEDS: MIRTAZAPINE 15 MG TABLET (FP) PO SCH (22:21)
[2017-11-10] MEDS: ATORVASTATIN CA 20 MG TABLET (FP) PO SCH (22:21)
[2017-11-10] MEDS: DEXTROSE 5%-0.45% SALINE 1,000 ML IV SCH (22:22)
[2017-11-11] MEDS: MAG HYDROX/AL HYDROX/SIMETH 30 ML UNIT-DOSE CUP PO SCH ×5 (00:48→23:37)
[2017-11-11] MEDS: PANTOPRAZOLE SODIUM 160 MG in SODIUM CHLORIDE 290 ML IVPB SCH ×2 (06:58→23:38)
[2017-11-11] MEDS: LEVOTHYROXINE NA 125 MCG TABLET (FP) PO SCH (07:00)
[2017-11-11 07:31] LABS: BASO % 0.4 % (0-2.0); HEMATOCRIT 24.8 % (32.4-45.2); HEMOGLOBIN 8.6 GM/dL (10.7-15.3); MCH 30.9 pg (25.7-33.7); MCHC 34.6 g/dl (32.0-36.0); MEAN CELL VOLUME 89.4 fl (80-96); MONO % 13.3 % (3.8-10.2); NEUT % 79.3 % (42.8-82.8); PLATELET COUNT 86 K/MM3 (134-434); RBC 2.78 M/mm3 (3.60-5.2); RDW 17.4 % (11.6-15.6); WHITE BLOOD COUNT 7.8 K/mm3 (4.0-10.0)
--- NOTE | 2017-11-11 07:32 | PN ---
Progress Note, Physician - Current Medication List Current Medications: Active Medications Al Hydroxide/Mg Hydroxide (Mylanta Oral Suspension -) 30 ml PO Q6HPO [facility] Last Admin: 11/11/17 07:00 Dose: 30 ml Amino Acids (Prosource No Carb Liquid Pkt) 30 ml PO BID@0800,1730 [facility] Last Admin: 11/10/17 18:30 Dose: 30 ml Atorvastatin Calcium (Lipitor -) 20 mg PO HS [facility] Last Admin: 11/10/17 22:21 Dose: 20 mg Bacitracin (Bacitracin -) 1 applic TP BID [facility] Last Admin: 11/10/17 22:21 Dose: 1 applic Budesonide/Formoterol Fumarate (Symbicort 160/4.5mcg -) 2 puff IH BID [facility] Last Admin: 11/10/17 22:22 Dose: 2 puff Dextrose/Sodium Chloride (D5-1/2ns -) 1,000 mls @ 60 mls/hr IV ASDIR [facility] Last Admin: 11/10/17 22:22 Dose: 60 mls/hr Pantoprazole Sodium 160 mg/ (Sodium Chloride) 290 mls @ 14.5 mls/hr IVPB Q20H [facility] Last Admin: 11/11/17 06:58 Dose: Not Given Iron Sucrose 200 mg/ Sodium (Chloride) 100 mls @ 100 mls/hr IVPB DAILY [facility] Last Admin: 11/10/17 12:39 Dose: 100 mls/hr Levothyroxine Sodium (Synthroid -) 125 mcg PO DAILY@0700 [facility] Last Admin: 11/11/17 07:00 Dose: 125 mcg Metoprolol Tartrate (Lopressor -) 50 mg PO BID [facility] Last Admin: 11/10/17 22:21 Dose: 50 mg Mirtazapine (Remeron -) 7.5 mg PO [facility] Last Admin: 11/10/17 22:21 Dose: 7.5 mg Multivitamins/Minerals/Vitamin C (Tab-A-Vit -) 1 tab PO DAILY [facility] Last Admin: 11/10/17 10:30 Dose: 1 tab Ondansetron HCl (Zofran Injection) 4 mg IVPB Q6H PRN PRN Reason: NAUSEA Sucralfate (Carafate Oral Suspension -) 1 gm PO QID [facility] Last Admin: 11/10/17 22:21 Dose: 1 gm - Objective Vital Signs: Vital Signs Temperature 97.8 F 11/11/17 06:00 Pulse Rate 97 H 11/11/17 06:00 Respiratory Rate 20 11/11/17 06:00 Blood Pressure 119/70 11/11/17 06:00 O2 Sat by Pulse Oximetry (%) 97 11/10/17 22:00 Cardiovascular: Yes: S1, S2 Respiratory: Yes: Regular, CTA Bilaterally, Poor Air Entry Gastrointestinal: Yes: Soft Edema: No Labs: INR, PTT INR 0.96 (0.83-1.09) 11/08/17 05:45 Problem List - Problems (1) Gastrointestinal bleed Code(s): K92.2 - GASTROINTESTINAL HEMORRHAGE, UNSPECIFIED (2) Hematemesis Code(s): K92.0 - HEMATEMESIS (3) A-fib Code(s): I48.91 - UNSPECIFIED ATRIAL FIBRILLATION Qualifiers: Atrial fibrillation type: chronic Qualified Code(s): I48.2 - Chronic atrial fibrillation (4) Breast cancer Code(s): C50.919 - MALIGNANT NEOPLASM OF UNSP SITE OF UNSPECIFIED FEMALE BREAST Qualifiers: Breast location: central portion of breast Laterality: left Assessment/Plan - Problems (1) Hematemesis Assessment/Plan: -Had EGD this admission-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 , source of the bleed -Seen by GI--GI follow up regarding AC -H/H holding--8.6 -AC on hold Code(s): K92.0 - HEMATEMESIS (2) Weakness Assessment/Plan: -OOB -Physical therapy Code(s): R53.1 - WEAKNESS (3) A-fib Assessment/Plan: -Chronic -AC on hold due to GI bleed -Tele monitoring -Cardiology consult noted Code(s): I48.91 - UNSPECIFIED ATRIAL FIBRILLATION Qualifiers: Atrial fibrillation type: chronic Qualified Code(s): I48.2 - Chronic atrial fibrillation (4) Slurred speech Assessment/Plan: -CT head unremarkable -Unable to do MRI due to PM -Neurology consult pending -Cardiology consult -Passed bedside swallow, was able to take her medications with no coughing Code(s): R47.81 - SLURRED SPEECH (5) Breast cancer Assessment/Plan: -Oncology on board Code(s): C50.919 - MALIGNANT NEOPLASM OF UNSP SITE OF UNSPECIFIED FEMALE BREAST Qualifiers: Breast location: central portion of breast Laterality: left (6) Anemia Assessment/Plan: -Iron levels l ow -Venofer 200 mg daily x 3 days -monitor H/H -Transfuse for hgb<8.0 -Check B12 and thyroid profile as well Code(s): D64.9 - ANEMIA, UNSPECIFIED
[2017-11-11 07:54] LABS: CHLORIDE 106 mmol/L (98-107); POTASSIUM 4.9 mmol/L (3.5-5.1); SODIUM 139 mmol/L (136-145)
[2017-11-11 08:06] LABS: ALK PHOS 94 U/L (45-117); ANION GAP 6 (8-16); BILIRUBIN,TOTAL 0.5 mg/dL (0.2-1.0); BLOOD UREA NITROGEN 23 mg/dL (7-18); CALCIUM 8.3 mg/dL (8.5-10.1); CO2 27 mmol/L (21-32); CREATININE 0.6 mg/dL (0.55-1.02); GLUCOSE,RANDOM 90 mg/dL (74-106); SGOT/AST 67 U/L (15-37); SGPT/ALT 21 U/L (12-78); TOT PROT 4.2 g/dl (6.4-8.2)
[2017-11-11] MEDS ORDERED: PT OWN MED DRAWER 7, Y5N ONE ×3 (10:00→23:48)
[2017-11-11] MEDS: IRON SUCROSE INJECTION 200 MG in SODIUM CHLORIDE 90 ML IVPB SCH (10:34)
[2017-11-11] MEDS: BACITRACIN 15 GM TUBE TOPICAL OINTMENT TP SCH ×3 (10:35→22:55)
[2017-11-11] MEDS: MULTIVITAMINS (DAILY MVI) TABLET (FP) PO SCH (10:35)
[2017-11-11] MEDS: SUCRALFATE 1 GM/10 ML UNIT DOSE CUPS PO SCH ×4 (10:35→22:13)
[2017-11-11] MEDS: BUDESONIDE/FORMETEROL FUMARATE 160/4.5 mcg INHALER IH SCH ×2 (10:35→22:14)
[2017-11-11] MEDS: AMINO ACIDS/PROTEIN HYDROLYS 30 ML LIQUID.PKT PO SCH ×2 (10:35→17:56)
[2017-11-11] MEDS: METOPROLOL TARTRATE 50 MG TABLET (FP) PO SCH ×2 (10:35→22:13)
--- NOTE | 2017-11-11 11:55 | PN ---
Progress Note (short form) - Note Progress Note: GI NOte: Brian has apparently gone downstairs for a repeat CT. Weekend events noted. HB relatively stable. Continuing PPI drip for large pyloric channel ulcer. Problem List - Problems (1) Hematemesis Code(s): K92.0 - HEMATEMESIS (2) Breast cancer Code(s): C50.919 - MALIGNANT NEOPLASM OF UNSP SITE OF UNSPECIFIED FEMALE BREAST Qualifiers: Breast location: central portion of breast Laterality: left (3) Severe malnutrition Code(s): E43 - UNSPECIFIED SEVERE PROTEIN-CALORIE MALNUTRITION
--- NOTE | 2017-11-11 13:15 | CONSULT ---
Admitting History and Physical - Admission History of Present Illness: Per EMR/Neuro: 77 year old female history of atrial fibrillation on coumadin, and coumadin was stopped for upper gi bled. She seem to have stroke secondary to stoppage of coumadin. ct head is normal. slurring of speech is improving. she is not on statin, SHE CANT GET MRI PPI drip for large pyloric channel ulcer. On full fluids. 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 atrophy on MRI) Cardiovascular: Yes: AFIB (left PPM), HTN, Hyperlipdemia, Murmur Pulmonary: Yes: COPD Hepatobiliary: Yes: Cholelithiasis Renal/: Yes: Renal Calculi ...: 4 ...Para: 4 Heme/Onc: Yes: Cancer (Advanced breast cancer s/p RT and now on Taxol) Musculoskeletal: Yes: Chronic low back pain (back pains currently), Other ( improved s/p RT) Endocrine: Yes: Hypothyroidism - Past Surgical History Past Surgical History: Yes: Appendectomy, Colonoscopy, Mastectomy (Left), Permanent Pacemaker, Tonsillectomy - Advance Directives Advance Directives: Yes: Living Will, Health Care Proxy - Smoking History Smoking history: Former smoker Have you smoked in the past 12 months: No Aproximately how many cigarettes per day: 4 If you are a former smoker, when did you quit?: 1979 - Alcohol/Substance Use Hx Alcohol Use: No History of Substance Use: reports: None - Social History ADL: Family Assistance History of Recent Travel: No History - Admission Reason For Visit: WEAKNESS - Hearing Hearing: Normal Speech Evaluation - Communication Primary Language: BRAZILIAN - Speech Characteristics Articulation: Yes: Precise - Swallow Evaluation/Bedside Assessment A-P Transit: WFL
--- NOTE | 2017-11-11 14:45 | CONSULT ---
Admitting History and Physical - Primary Care Physician PCP: Kristina Martinez - Admission History of Present Illness: large pyloric channel ulcer. On full fluid diet. PPI CT head x 2 noted. 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, 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, 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) Cardiovascular: Yes: AFIB (left PPM), HTN, Hyperlipdemia, Murmur Pulmonary: Yes: COPD Hepatobiliary: Yes: Cholelithiasis Renal/: Yes: Renal Calculi ...: 4 ...Para: 4 Heme/Onc: Yes: Cancer (Advanced breast cancer s/p RT and now on Taxol) Musculoskeletal: Yes: Chronic low back pain (back pains currently), Other ( improved s/p RT) Endocrine: Yes: Hypothyroidism - Past Surgical History Past Surgical History: Yes: Appendectomy, Colonoscopy, Mastectomy (Left), Permanent Pacemaker, Tonsillectomy - Advance Directives Advance Directives: Yes: Living Will, Health Care Proxy - Smoking History Smoking history: Former smoker Have you smoked in the past 12 months: No Aproximately how many cigarettes per day: 4 If you are a former smoker, when did you quit?: 1979 - Alcohol/Substance Use Hx Alcohol Use: No History of Substance Use: reports: None - Social History ADL: Family Assistance History of Recent Travel: No History - Admission Reason For Visit: WEAKNESS - Diagnostics X-ray: Report Reviewed CT Scan: Report Reviewed Other: Report Reviewed (Carotid us) - General Mental Status: Alert and Oriented, Awake and Alert, Able to Follow Commands Attention: Intact Ability to Follow Directions: Excellent Head/Neck Control: WFL - Hearing Hearing: Normal Speech Evaluation - Communication Primary Language: SENEGALESE Oral Expression Ability: Yes: Mild Impairment - Speech Production Able to Make Needs Known: Yes: WNL Intelligibility: Yes: Mildly Impaired - Speech Characteristics Voice Loudness: Normal Voice Pitch: Yes: Normal Voice Phonatory-based Quality: Yes: Normal Speech Clarity: < 100% Nasal Resonance: Normal Articulation: Yes: Imprecise (mild) - Language/Auditory Comprehension Follows: Yes: 2 Stage Simple Commands - Language/Verbal Expression Able to Respond to Simple Queries: Yes: WNL Able to Communicate Wants and Needs: Yes: WNL Functional Communication Status: Yes: WNL - Memory/Perception intermodal customer service Memory: Yes: WNL Short Term Memory: Yes: WNL - Swallow Evaluation/Bedside Assessment Current Nutritional Intake: Full Liquids Oral Secretions: Yes: WFL Dentition: Yes: Edentulous (a couple of teeth) Facial Symmetry at Rest: Facial Droop Right (slight) Facial Symmetry on Retraction: Symmetrical Facial Movement: Controlled Against Resistance Opening: Normal Against Resistance Closing: Normal Pucker Lips: Normal Smile: Normal Lingual Movement: Normal, Symmetric Lingual Speed of Movement: Normal Lingual Movement Strgth Against Opposition: Normal Lingual Movement Characteristics: Normal Velopharyngeal Movement: Normal Laryngeal Elevation: WFL Laryngeal Movement: Able to Palpate Bolus Size: WFL Labial Seal: WFL Chewing: WFL (not assessed but said to be WNL premorbidly without dentition) Oral Prep Time: WFL A-P Transit: WFL Pocketing: None Coughing/Throat Clear: No Change in Voice: No Recommendations - Speech Evaluation, Impression/Plan Impression: Speech mildly imprecise, reported to be new.Speech was precise in June,. CT head x 2- no acute strokes identified. Etiology? - Dysphagia Impressions/Plan Swallowing Skills: WFL Dysphagia Impressions: No Impairment *Silent aspiration: cannot be R/O at bedside Recommendations: Other (Full fluids per GI. Upgrade diet per GI.)
--- NOTE | 2017-11-11 14:54 | PN ---
Progress Note (short form) - Note Progress Note: slurring of speech x 3 days ago . 77 year old female history of atrial fibrillation on coumadin, TIA/Stroke,HTN,HLD,COPD,Metastatic breast cancer. She presented with GI bleed and drop in H/H. Her coumadin was stopped and she has upper GI endocscopy. Patient has developed slurring of speech on november 09. She has been improving . Her daughter thinks she has slurring of speech comes and goes. SHe denies any motor weakness, cognitive dysfunciton, headhace, seizure. She cant get mri of brain due to pacemaker. She has not been treated with statin before. low dose statin was added , repeat ct was unchanged. She seems to have very minimal residual slurring of speech and saw speech pathologist today Neurological Examination Alert oriented x 3, speech is slurred no face asymmetry, eomi, pupils reactive no motor weakness reflex are generalized diminished ct head and carotid ultrasound unremarkable repeat ct head was unremarkable Assessment 77 year old female history of atrial fibrillation on coumadin, and coumadin was stopped for upper gi bled. She seem to have stroke secondary to stoppage of coumadin. repeat ct head unremarkable, carotid ultrasound is normal. very minimal symptoms remains, and speech evalauted her today. She canot get mri of brain Plan -speech eval - continue dvt prophylaxis, stroke education was discussed - suggest primary care to resume AC, whenever she can tolerate - regarding cognitive difficulty ( possible dementia) to assess outpatient - continue low dose lipitor thanking you so much Samuel Hwang MD
--- NOTE | 2017-11-11 19:57 | PN ---
Progress Note (short form) - Note Progress Note: Patient seen and examined Prior notes reviewed Speech improved Clinical diagnosis is that of a stroke although no CT confirmation Last Vital Signs Temp Pulse Resp BP Pulse Ox 98.7 F 91 H 20 106/6 94 L 11/11/17 14:00 11/11/17 14:00 11/11/17 14:00 11/11/17 14:00 11/11/17 14:00 Cor: RSR, No murmurs, No gallops Lungs: diminished breath sounds bilaterally Abd: Soft, Normal bowel sounds, No organomegaly Ext:No significant edema CBC, BMP 11/11/17 06:30 11/11/17 06:30 Impression: Metastatic breast ca Pyloric ulcer Dietary recommendations per GI Speech impairment --? stroke - improving Anemia -- to monitor. Problem List - Problems (1) Gastrointestinal bleed Code(s): K92.2 - GASTROINTESTINAL HEMORRHAGE, UNSPECIFIED (2) Breast cancer, left Code(s): C50.912 - MALIGNANT NEOPLASM OF UNSPECIFIED SITE OF LEFT FEMALE BREAST Qualifiers: Estrogen receptor status: positive Patient sex: female (3) Hyperkalemia Code(s): E87.5 - HYPERKALEMIA
--- NOTE | 2017-11-11 20:08 | PN ---
Progress Note (short form) - Note Progress Note: Patient seen and examined marked tachypnea, Anxious Days events noted Hyperkalemia - now with bowel movements secondary to kayexalate Last Vital Signs Temp Pulse Resp BP Pulse Ox 98.7 F 91 H 20 106/6 94 L 11/11/17 14:00 11/11/17 14:00 11/11/17 14:00 11/11/17 14:00 11/11/17 14:00 Cor: atrila fib Lungs: diminished breath osunds Abd: Soft, Normal bowel sounds, No organomegaly CBC, BMP 11/11/17 06:30 11/11/17 06:30 Current Medications Generic Name Dose Route Start Last Admin Trade Name Freq PRN Reason Stop Dose Admin Al Hydroxide/Mg Hydroxide 30 ml 11/08/17 13:30 11/11/17 17:56 Mylanta Oral Suspension - PO 30 ml Q6HPO [facility] Administration Amino Acids 30 ml 11/08/17 08:00 11/11/17 17:56 Prosource No Carb Liquid Pkt PO 30 ml BID@0800,1730 [facility] Administration Atorvastatin Calcium 20 mg 11/10/17 22:00 11/10/17 22:21 Lipitor - PO 20 mg HS [facility] Administration Bacitracin 1 applic 11/07/17 20:30 11/11/17 10:35 Bacitracin - TP 1 applic BID [facility] Administration Budesonide/Formoterol Fumarate 2 puff 11/07/17 22:00 11/11/17 10:35 Symbicort 160/4.5mcg - IH 2 puff BID [facility] Administration Dextrose/Sodium Chloride 1,000 mls @ 60 mls/hr 11/07/17 21:33 11/10/17 22:22 D5-1/2ns - IV 60 mls/hr ASDIR [facility] Administration Pantoprazole Sodium 160 mg/ 290 mls @ 14.5 mls/hr 11/09/17 12:00 11/11/17 06: 58 Sodium Chloride IVPB Not Given Q20H [facility] Iron Sucrose 200 mg/ Sodium 100 mls @ 100 mls/hr 11/10/17 10:00 11/11/17 10: 34 Chloride IVPB 100 mls/hr DAILY [facility] Administration Levothyroxine Sodium 125 mcg 11/08/17 07:00 11/11/17 07:00 Synthroid - PO 125 mcg DAILY@0700 [facility] Administration Metoprolol Tartrate 50 mg 11/07/17 22:00 11/11/17 10:35 Lopressor - PO 50 mg BID [facility] Administration Mirtazapine 7.5 mg 11/09/17 22:00 11/10/17 22:21 Remeron - PO 7.5 mg HS [facility] Administration Multivitamins/Minerals/Vitamin C 1 tab 11/08/17 10:00 11/11/17 10:35 Tab-A-Vit - PO 1 tab DAILY [facility] Administration Ondansetron HCl 4 mg 11/07/17 21:33 Zofran Injection IVPB Q6H PRN NAUSEA Sucralfate 1 gm 11/08/17 18:00 11/11/17 17:56 Carafate Oral Suspension - PO 1 gm QID [facility] Administration Impression: Fungal infection - under therapy Neuroendocrine tumor COPD Anemia thrombocytopenia Hyperkalemia Current treatments May need to reconsider question of chemotherapy in view of current poor performance status. Problem List - Problems (1) Gastrointestinal bleed Code(s): K92.2 - GASTROINTESTINAL HEMORRHAGE, UNSPECIFIED (2) Breast cancer, left Code(s): C50.912 - MALIGNANT NEOPLASM OF UNSPECIFIED SITE OF LEFT FEMALE BREAST Qualifiers: Estrogen receptor status: positive Patient sex: female (3) Hyperkalemia Code(s): E87.5 - HYPERKALEMIA
[2017-11-11] MEDS: MIRTAZAPINE 15 MG TABLET (FP) PO SCH (22:13)
[2017-11-11] MEDS: ATORVASTATIN CA 20 MG TABLET (FP) PO SCH (22:13)
[2017-11-11] MEDS: DEXTROSE 5%-0.45% SALINE 1,000 ML IV SCH (22:16)
[2017-11-12] MEDS: DEXTROSE 5%-0.45% SALINE 1,000 ML IV SCH ×2 (04:05→21:18)
[2017-11-12] MEDS ORDERED: PT OWN MED DRAWER 7, Y5N ONE ×2 (05:01→21:38)
[2017-11-12] MEDS: LEVOTHYROXINE NA 125 MCG TABLET (FP) PO SCH (06:13)
[2017-11-12] MEDS: MAG HYDROX/AL HYDROX/SIMETH 30 ML UNIT-DOSE CUP PO SCH ×4 (06:13→23:46)
[2017-11-12 06:37] LABS: BASO % 0.5 % (0-2.0); EOS % 1.3 % (0-4.5); HEMATOCRIT 22.7 % (32.4-45.2); HEMOGLOBIN 7.8 GM/dL (10.7-15.3); MCH 30.8 pg (25.7-33.7); MCHC 34.2 g/dl (32.0-36.0); MEAN PLT VOLUME 8.5 fl (7.5-11.1); NEUT % 79.2 % (42.8-82.8); PLATELET COUNT 91 K/MM3 (134-434); RBC 2.52 M/mm3 (3.60-5.2); RDW 17.9 % (11.6-15.6); WHITE BLOOD COUNT 6.9 K/mm3 (4.0-10.0)
[2017-11-12 07:08] LABS: CHLORIDE 111 mmol/L (98-107); POTASSIUM 3.6 mmol/L (3.5-5.1); SODIUM 144 mmol/L (136-145)
[2017-11-12 07:21] LABS: ALBUMIN 1.8 g/dl (3.4-5.0); ALK PHOS 98 U/L (45-117); ANION GAP 9 (8-16); BILIRUBIN,TOTAL 0.4 mg/dL (0.2-1.0); BLOOD UREA NITROGEN 20 mg/dL (7-18); CALCIUM 7.6 mg/dL (8.5-10.1); CO2 24 mmol/L (21-32); CREATININE 0.5 mg/dL (0.55-1.02); GLUCOSE,RANDOM 103 mg/dL (74-106); SGOT/AST 64 U/L (15-37); SGPT/ALT 18 U/L (12-78); TOT PROT 3.6 g/dl (6.4-8.2)
[2017-11-12] MEDS ORDERED: FUROSEMIDE 40 MG/4 ML INJECTABLE VIAL IVPUSH SCH (07:58)
--- NOTE | 2017-11-12 07:58 | PN ---
Progress Note, Physician - Current Medication List Current Medications: Active Medications Al Hydroxide/Mg Hydroxide (Mylanta Oral Suspension -) 30 ml PO Q6HPO [facility] Last Admin: 11/12/17 06:13 Dose: 30 ml Amino Acids (Prosource No Carb Liquid Pkt) 30 ml PO BID@0800,1730 [facility] Last Admin: 11/11/17 17:56 Dose: 30 ml Atorvastatin Calcium (Lipitor -) 20 mg PO HS [facility] Last Admin: 11/11/17 22:13 Dose: 20 mg Bacitracin (Bacitracin -) 1 applic TP BID [facility] Last Admin: 11/11/17 22:55 Dose: Not Given Budesonide/Formoterol Fumarate (Symbicort 160/4.5mcg -) 2 puff IH BID [facility] Last Admin: 11/11/17 22:14 Dose: 2 puff Dextrose/Sodium Chloride (D5-1/2ns -) 1,000 mls @ 60 mls/hr IV ASDIR [facility] Last Admin: 11/12/17 04:05 Dose: 60 mls/hr Pantoprazole Sodium 160 mg/ (Sodium Chloride) 290 mls @ 14.5 mls/hr IVPB Q20H [facility] Last Admin: 11/11/17 23:38 Dose: Not Given Iron Sucrose 200 mg/ Sodium (Chloride) 100 mls @ 100 mls/hr IVPB DAILY [facility] Last Admin: 11/11/17 10:34 Dose: 100 mls/hr Levothyroxine Sodium (Synthroid -) 125 mcg PO DAILY@0700 [facility] Last Admin: 11/12/17 06:13 Dose: 125 mcg Metoprolol Tartrate (Lopressor -) 50 mg PO BID [facility] Last Admin: 11/11/17 22:13 Dose: 50 mg Mirtazapine (Remeron -) 7.5 mg PO [facility] Last Admin: 11/11/17 22:13 Dose: 7.5 mg Multivitamins/Minerals/Vitamin C (Tab-A-Vit -) 1 tab PO DAILY [facility] Last Admin: 11/11/17 10:35 Dose: 1 tab Ondansetron HCl (Zofran Injection) 4 mg IVPB Q6H PRN PRN Reason: NAUSEA Sucralfate (Carafate Oral Suspension -) 1 gm PO QID [facility] Last Admin: 11/11/17 22:13 Dose: 1 gm - Objective Vital Signs: Vital Signs Temperature 98.5 F 11/12/17 06:00 Pulse Rate 93 H 11/12/17 06:00 Respiratory Rate 18 11/12/17 06:00 Blood Pressure 124/77 11/12/17 06:00 O2 Sat by Pulse Oximetry (%) 96 11/11/17 21:00 Cardiovascular: Yes: Pulse Irregular, S1, S2 Respiratory: Yes: Regular, CTA Bilaterally Gastrointestinal: Yes: Normal Bowel Sounds, Soft. No: Tenderness Labs: CBC, BMP 11/12/17 06:00 11/12/17 06:00 INR, PTT INR 0.96 (0.83-1.09) 11/08/17 05:45 Problem List - Problems (1) Gastrointestinal bleed Code(s): K92.2 - GASTROINTESTINAL HEMORRHAGE, UNSPECIFIED (2) Hematemesis Code(s): K92.0 - HEMATEMESIS (3) A-fib Code(s): I48.91 - UNSPECIFIED ATRIAL FIBRILLATION Qualifiers: Atrial fibrillation type: chronic Qualified Code(s): I48.2 - Chronic atrial fibrillation (4) Breast cancer Code(s): C50.919 - MALIGNANT NEOPLASM OF UNSP SITE OF UNSPECIFIED FEMALE BREAST Qualifiers: Breast location: central portion of breast Laterality: left Assessment/Plan - Problems (1) Hematemesis Assessment/Plan: -Had EGD this admission-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 , source of the bleed -Seen by GI--GI follow up regarding AC -H/H dropping--Transfuse 2 units prbc -AC on hold Code(s): K92.0 - HEMATEMESIS (2) Weakness Assessment/Plan: -OOB -Physical therapy Code(s): R53.1 - WEAKNESS (3) A-fib Assessment/Plan: -Chronic -AC on hold due to GI bleed -Tele monitoring -Cardiology consult noted Code(s): I48.91 - UNSPECIFIED ATRIAL FIBRILLATION Qualifiers: Atrial fibrillation type: chronic Qualified Code(s): I48.2 - Chronic atrial fibrillation (4) Slurred speech Assessment/Plan: -CT head unremarkable -Unable to do MRI due to PM -Neurology consult pending -Cardiology consult -Passed bedside swallow, was able to take her medications with no coughing Code(s): R47.81 - SLURRED SPEECH (5) Breast cancer Assessment/Plan: -Oncology on board Code(s): C50.919 - MALIGNANT NEOPLASM OF UNSP SITE OF UNSPECIFIED FEMALE BREAST Qualifiers: Breast location: central portion of breast Laterality: left (6) Anemia Assessment/Plan: -Iron levels l ow -Venofer 200 mg daily x 3 days-given -Transfuse -monitor H/H -Transfuse for hgb<8.0 -Check B12 and thyroid profile as well Code(s): D64.9 - ANEMIA, UNSPECIFIED (7) Hypothyroidism Assessment/Plan: -TSH high -Synthroid to 150
[2017-11-12] MEDS: AMINO ACIDS/PROTEIN HYDROLYS 30 ML LIQUID.PKT PO SCH ×2 (08:29→17:49)
[2017-11-12] MEDS: IRON SUCROSE INJECTION 200 MG in SODIUM CHLORIDE 90 ML IVPB SCH (09:40)
[2017-11-12] MEDS: SUCRALFATE 1 GM/10 ML UNIT DOSE CUPS PO SCH ×4 (09:40→22:25)
[2017-11-12] MEDS: MULTIVITAMINS (DAILY MVI) TABLET (FP) PO SCH (09:40)
[2017-11-12] MEDS: METOPROLOL TARTRATE 50 MG TABLET (FP) PO SCH ×2 (09:40→22:19)
[2017-11-12] MEDS: BUDESONIDE/FORMETEROL FUMARATE 160/4.5 mcg INHALER IH SCH ×2 (09:40→22:20)
[2017-11-12] MEDS: BACITRACIN 15 GM TUBE TOPICAL OINTMENT TP SCH ×2 (09:41→21:18)
--- NOTE | 2017-11-12 10:41 | EKG ---
Test Reason : Blood Pressure : / mmHG Vent. Rate : 086 BPM Atrial Rate : 108 BPM P-R Int : 000 ms QRS Dur : 094 ms QT Int : 364 ms P-R-T Axes : 000 054 158 degrees QTc Int : 435 ms ATRIAL FIBRILLATION WITH PREMATURE VENTRICULAR OR ABERRANTLY CONDUCTED COMPLEXES NONSPECIFIC T WAVE ABNORMALITY ABNORMAL ECG Confirmed by Tony Yadav MD ([id number]) on 11/12/2017 10:41:41 AM Referred By: Mac QUINTANILLA Confirmed By:Tony Yadav MD
[2017-11-12] MEDS ORDERED: traMADol HCL 50 MG TABLET PO PRN (10:57)
[2017-11-12 12:16] VITALS: BMI 17.3
--- NOTE | 2017-11-12 13:12 | CONSULT ---
Consult Consult Specialty:: PM&R - History of Present Illness History of Present Illness: This is a 77 year old woman with a medical history of CVA/ TIA, A fib s/p PPM, HTN, HLD, COPD, cholelithiasis, renal calculi, metastatic breast cancer on chemo s/p L mastectomy and XRT, hypothyroidism, who presented to the ED 11/06/17 with weakness, chills and dark emesis. She was admitted for anemia and GIB, with EGD showing large pyloric ulcer; Coumadin was held. She received pRBC transfusion. 11/09/17 she developed slurred speech for which Neuro was consulted. CT head and carotid US were unremarkable (MRI contraindicated due to PPM). She was seen by PT, and on 11/12/17 she was Moderate Assist in Transfers, and ambulated (shuffled) 3 feet moderate Assist with Rolling Walker. Physiatry is being consulted for further recommendations. 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: CVA, TIA, Other (CONVENTIONAL UNDERWRITER atrophy on MRI) Cardio/Vascular: Yes: AFIB (left PPM), HTN, Hyperlipdemia, Murmur Pulmonary: Yes: COPD Hepatobiliary: Yes: Cholelithiasis Renal/: Yes: Renal Calculi Musculoskeletal: Yes: Chronic low back pain (back pains currently), Other ( improved s/p RT) Endocrine: Yes: Hypothyroidism - Past Surgical History Past Surgical History: Yes: Appendectomy, Colonoscopy, Mastectomy (Left), Permanent Pacemaker, Tonsillectomy - Alcohol/Substance Use Hx Alcohol Use: No History of Substance Use: reports: None - Smoking History Smoking history: Former smoker Have you smoked in the past 12 months: No Aproximately how many cigarettes per day: 4 If you are a former smoker, when did you quit?: 1979 - Social History Usual Living Arrangement: With Child (lives with daughter and son- in- law in apartment with 14 steps to enter, previously ambulated with both SC and RW) ADL: Family Assistance (needs Assist in bathing otherwise Independent in ADLs) History of Recent Travel: No Home Medications - Allergies Allergies/Adverse Reactions: Allergies Allergy/AdvReac Type Severity Reaction Status Date / Time No Known Drug Allergies Allergy Verified 11/06/17 10:42 - Home Medications Home Medications: Ambulatory Orders Metoprolol Tartrate [Lopressor -] 50 mg PO BID 12/29/13 Warfarin Na [Coumadin -] 2.5 mg PO DAILY@1800 tablet 09/27/17 Folic Acid/Multivit-Min/Lutein [Multi-Vitamin Gummies] 1 tab PO DAILY 11/06/17 Levothyroxine 0.125 mg PO DAILY 11/06/17 Prochlorperazine 10 mg PO DAILY 11/06/17 Ranitidine [Zantac -] 150 mg PO DAILY 11/06/17 Family Disease History - Family Disease History Family Disease History: CA: Daughter (breast cancer), Respiratory: Mother ( 74 ? cause), Other: Father ( 67 ? cause) Review of Systems Findings/Remarks: shakes head no to fevers, chills, changes in vision/ hearing/ mood, CP, abdominal pain, bowel/ bladder incontinence, constipation, muscle/ joint pain. Does not respond to questions about paresthesias or numbness. Notes fatigue and SOB Physical Exam Vital Signs: Vital Signs Temperature 97.7 F 11/12/17 09:50 Pulse Rate 85 11/12/17 09:50 Respiratory Rate 19 11/12/17 09:50 Blood Pressure 109/61 11/12/17 09:50 O2 Sat by Pulse Oximetry (%) 95 11/12/17 09:00 Musculoskeletal: Yes: Other (General: calm elderly F sitting in bed, eyes open a little, follows commands, answers questions by shaking/ nodding head but does not speak N/M: B shoulder flexion to 140 degrees, grossly 4+/5 BUE , 3/5 B HF then 4+/5 B KE and 4/5 B DF/ EHL; Pinprick Intact BUE/ BLE Extremities: 1+ B foot pitting edema with TEDs and SCDs in place; no B calf tenderness) Labs: CBC, BMP 11/12/17 06:00 11/12/17 06:00 Imaging - Results Cat Scan: Report Reviewed (CT head 11/11/17 shows no acute pathology) Ultrasound: Report Reviewed (carotid US 11/11/17 shows no hemodynamiclly significant stenosis) Assessment/Plan Impression: 1) Deficits mobility/ ADLs 2) Gait abnormality 3) Slurred speech possibly CVA with hx CVA/ TIA 4) UGIB due to pyloric ulcer 5) Anemia due to GIB 6) hx A fib s/p PPM, HTN, HLD 7) hx COPD 8) hx cholelithiasis 9) hx renal calculi 10) Metastatic breast cancer on chemo s/p L mastectomy and XRT 11) hx hypothyroidism 12) Underweight 13) no documented flu shot/ pneumovax Recommendations: 1) PT for stretching strengthening ROM and functional mobility 2) Falls, safety precautions 3) Cardiopulmonary precautions 4) DVT ppx: TEDs/ SCDs 5) Skin protection: float heels, frequent turning 6) Denies constipation on current bowel regimen 7) Monitor CBC given anemia 8) Nutrition consult for underweight 9) Discharge planning: d/w pt and family (2 granddaughters and son-in-law) that she would benefit from inpatient rehabilitation once medically stable to received PT/ OT/ ST. She would prefer to go home with service with possible but will consider rehab (communicated via shrugs and grunts). Family to encourage rehab as well. Thank you for this referral.
--- NOTE | 2017-11-12 18:53 | PN ---
GI Progress Note Subjective: GI NOte: Brian denies abdominal pain and tells me that she would like more to eat. No N/V with full liquids. I discussed the case with her daughter Lisa who tells me that she does not want her mother placed in SNF and that she intends to take her home. Hb has dwindled to 7.8. Will transfuse. - Objective Vital Signs: Vital Signs Temperature 97.7 F 11/12/17 14:00 Pulse Rate 82 11/12/17 14:00 Respiratory Rate 11/12/17 14:00 Blood Pressure 122/72 11/12/17 14:00 O2 Sat by Pulse Oximetry (%) 95 11/12/17 09:00 Laboratory Tests 09/20/17 09/21/17 09/23/17 13:58 06:30 07:01 Hgb 13.8 D 12.5 12.4 11/07/17 11/09/17 11/11/17 20:30 05:30 06:30 Hgb 9.3 L 8.0 L 8.6 L 11/12/17 06:00 Hgb 7.8 L Constitutional: No Distress ...Auscultate: Yes: Normoactive Bowel Sounds ...Palpate: Yes: Soft, Other (nontender) Labs: CBC, BMP 11/12/17 06:00 11/12/17 06:00 INR, PTT INR 0.96 (0.83-1.09) 11/08/17 05:45 Problem List - Problems (1) Hematemesis Assessment/Plan: Pyloric channel ulcer with bleeding and partial gastric obstruction. Will transfuse, stop IV pantoprazole and try a chopped diet. Code(s): K92.0 - HEMATEMESIS (2) Breast cancer Code(s): C50.919 - MALIGNANT NEOPLASM OF UNSP SITE OF UNSPECIFIED FEMALE BREAST Qualifiers: Breast location: central portion of breast Laterality: left (3) Severe malnutrition Code(s): E43 - UNSPECIFIED SEVERE PROTEIN-CALORIE MALNUTRITION
--- NOTE | 2017-11-12 20:06 | PN ---
Progress Note (short form) - Note Progress Note: Patient seen and examined Weak, debilitated Receiving packed cells Last Vital Signs Temp Pulse Resp BP Pulse Ox 97.7 F 82 18 122/72 95 11/12/17 14:00 11/12/17 14:00 11/12/17 14:00 11/12/17 14:00 11/12/17 09:00 Lungs- diminished breath sounds Cor-RSR Abd soft Ext- no edema Current Medications Generic Name Dose Route Start Last Admin Trade Name Freq PRN Reason Stop Dose Admin Al Hydroxide/Mg Hydroxide 30 ml 11/08/17 13:30 11/12/17 17:49 Mylanta Oral Suspension - PO 30 ml Q6HPO DESTIN Administration Amino Acids 30 ml 11/08/17 08:00 11/12/17 17:49 Prosource No Carb Liquid Pkt PO 30 ml BID@0800,1730 DESTIN Administration Atorvastatin Calcium 20 mg 11/10/17 22:00 11/11/17 22:13 Lipitor - PO 20 mg HS DESTIN Administration Bacitracin 1 applic 11/11/17 22:30 11/12/17 09:41 Bacitracin - TP 1 applic BID DESTIN Administration Budesonide/Formoterol Fumarate 2 puff 11/07/17 22:00 11/12/17 09:40 Symbicort 160/4.5mcg - IH 2 puff BID DESTIN Administration Dextrose/Sodium Chloride 1,000 mls @ 60 mls/hr 11/07/17 21:33 11/12/17 04:05 D5-1/2ns - IV 60 mls/hr ASDIR DESTIN Administration Iron Sucrose 200 mg/ Sodium 100 mls @ 100 mls/hr 11/10/17 10:00 11/12/17 09: 40 Chloride IVPB 100 mls/hr DAILY DESTIN Administration Levothyroxine Sodium 150 mcg 11/12/17 08:51 Synthroid - PO DAILY@0700 DESTIN Metoprolol Tartrate 50 mg 11/07/17 22:00 11/12/17 09:40 Lopressor - PO 50 mg BID DESTIN Administration Mirtazapine 7.5 mg 11/09/17 22:00 11/11/17 22:13 Remeron - PO 7.5 mg HS DESTIN Administration Multivitamins/Minerals/Vitamin C 1 tab 11/08/17 10:00 11/12/17 09:40 Tab-A-Vit - PO 1 tab DAILY DESTIN Administration Ondansetron HCl 4 mg 11/07/17 21:33 Zofran Injection IVPB Q6H PRN NAUSEA Pantoprazole Sodium 40 mg 11/12/17 22:00 Protonix - PO BID DESTIN Sucralfate 1 gm 11/08/17 18:00 11/12/17 17:49 Carafate Oral Suspension - PO 1 gm QID DESTIN Administration Tramadol HCl 50 mg 11/12/17 10:57 11/12/17 11:14 Ultram - PO 50 mg Q8H PRN Administration PAIN LEVEL 4 - 6 CBC, BMP 11/12/17 06:00 11/12/17 06:00 Impression: Post bulbar ulcer Breast ca - metastatic Anemia Thrombocytopenia Cachexia Plan ; Advancing diet per GI. Problem List - Problems (1) Gastrointestinal bleed Code(s): K92.2 - GASTROINTESTINAL HEMORRHAGE, UNSPECIFIED (2) Breast cancer, left Code(s): C50.912 - MALIGNANT NEOPLASM OF UNSPECIFIED SITE OF LEFT FEMALE BREAST Qualifiers: Estrogen receptor status: positive Patient sex: female (3) Hyperkalemia Code(s): E87.5 - HYPERKALEMIA
[2017-11-12] MEDS: ATORVASTATIN CA 20 MG TABLET (FP) PO SCH (22:19)
[2017-11-12] MEDS: MIRTAZAPINE 15 MG TABLET (FP) PO SCH (22:19)
[2017-11-12] MEDS: PANTOPRAZOLE 40 MG TABLET (FP) PO SCH (22:19)
[2017-11-13] MEDS: LEVOTHYROXINE NA 75 MCG TABLET (FP) PO SCH (06:14)
[2017-11-13] MEDS: MAG HYDROX/AL HYDROX/SIMETH 30 ML UNIT-DOSE CUP PO SCH ×4 (06:14→23:13)
[2017-11-13 06:48] LABS: BASO % 0.6 % (0-2.0); EOS % 1.2 % (0-4.5); HEMATOCRIT 31.6 % (32.4-45.2); HEMOGLOBIN 11.2 GM/dL (10.7-15.3); LYMPH % 4.5 % (8-40); MCHC 35.4 g/dl (32.0-36.0); MEAN CELL VOLUME 84.8 fl (80-96); MEAN PLT VOLUME 7.9 fl (7.5-11.1); MONO % 11.8 % (3.8-10.2); NEUT % 81.9 % (42.8-82.8); PLATELET COUNT 93 K/MM3 (134-434); RBC 3.73 M/mm3 (3.60-5.2); RDW 18.4 % (11.6-15.6); WHITE BLOOD COUNT 8.1 K/mm3 (4.0-10.0)
[2017-11-13 07:07] LABS: ALBUMIN 1.9 g/dl (3.4-5.0); BLOOD UREA NITROGEN 23 mg/dL (7-18); CALCIUM 7.9 mg/dL (8.5-10.1); CHLORIDE 105 mmol/L (98-107); GLUCOSE,RANDOM 160 mg/dL (74-106); POTASSIUM 3.9 mmol/L (3.5-5.1); SODIUM 139 mmol/L (136-145)
[2017-11-13 07:11] LABS: ALK PHOS 121 U/L (45-117); ANION GAP 6 (8-16); BILIRUBIN,TOTAL 0.6 mg/dL (0.2-1.0); CO2 28 mmol/L (21-32); CREATININE 0.6 mg/dL (0.55-1.02); SGOT/AST 56 U/L (15-37); SGPT/ALT 21 U/L (12-78); TOT PROT 4.2 g/dl (6.4-8.2)
--- NOTE | 2017-11-13 08:25 | PN ---
Progress Note, Physician History of Present Illness: feels tired no other complaints - Current Medication List Current Medications: Active Medications Al Hydroxide/Mg Hydroxide (Mylanta Oral Suspension -) 30 ml PO Q6HPO [facility] Last Admin: 11/13/17 06:14 Dose: 30 ml Amino Acids (Prosource No Carb Liquid Pkt) 30 ml PO BID@0800,1730 [facility] Last Admin: 11/12/17 17:49 Dose: 30 ml Atorvastatin Calcium (Lipitor -) 20 mg PO HS [facility] Last Admin: 11/12/17 22:19 Dose: 20 mg Bacitracin (Bacitracin -) 1 applic TP BID [facility] Last Admin: 11/12/17 21:18 Dose: 1 applic Budesonide/Formoterol Fumarate (Symbicort 160/4.5mcg -) 2 puff IH BID [facility] Last Admin: 11/12/17 22:20 Dose: 2 puff Dextrose/Sodium Chloride (D5-1/2ns -) 1,000 mls @ 60 mls/hr IV ASDIR [facility] Last Admin: 11/12/17 21:18 Dose: Not Given Iron Sucrose 200 mg/ Sodium (Chloride) 100 mls @ 100 mls/hr IVPB DAILY [facility] Last Admin: 11/12/17 09:40 Dose: 100 mls/hr Levothyroxine Sodium (Synthroid -) 150 mcg PO DAILY@0700 [facility] Last Admin: 11/13/17 06:14 Dose: 150 mcg Metoprolol Tartrate (Lopressor -) 50 mg PO BID [facility] Last Admin: 11/12/17 22:19 Dose: 50 mg Mirtazapine (Remeron -) 7.5 mg PO HS [facility] Last Admin: 11/12/17 22:19 Dose: 7.5 mg Multivitamins/Minerals/Vitamin C (Tab-A-Vit -) 1 tab PO DAILY [facility] Last Admin: 11/12/17 09:40 Dose: 1 tab Ondansetron HCl (Zofran Injection) 4 mg IVPB Q6H PRN PRN Reason: NAUSEA Pantoprazole Sodium (Protonix -) 40 mg PO BID [facility] Last Admin: 11/12/17 22:19 Dose: 40 mg Sucralfate (Carafate Oral Suspension -) 1 gm PO QID [facility] Last Admin: 11/12/17 22:25 Dose: 1 gm Tramadol HCl (Ultram -) 50 mg PO Q8H PRN PRN Reason: PAIN LEVEL 4 - 6 Last Admin: 11/12/17 11:14 Dose: 50 mg - Objective Vital Signs: Vital Signs Temperature 98.1 F 11/13/17 05:00 Pulse Rate 95 H 11/13/17 05:00 Respiratory Rate 18 11/13/17 05:00 Blood Pressure 127/73 11/13/17 05:00 O2 Sat by Pulse Oximetry (%) 99 11/12/17 21:00 Cardiovascular: Yes: Pulse Irregular, S1, S2 Respiratory: Yes: Regular, CTA Bilaterally Gastrointestinal: Yes: Normal Bowel Sounds, Soft Labs: CBC, BMP 11/13/17 06:00 11/13/17 06:00 INR, PTT INR 0.96 (0.83-1.09) 11/08/17 05:45 Problem List - Problems (1) Gastrointestinal bleed Code(s): K92.2 - GASTROINTESTINAL HEMORRHAGE, UNSPECIFIED (2) Hematemesis Code(s): K92.0 - HEMATEMESIS (3) A-fib Code(s): I48.91 - UNSPECIFIED ATRIAL FIBRILLATION Qualifiers: Atrial fibrillation type: chronic Qualified Code(s): I48.2 - Chronic atrial fibrillation (4) Breast cancer Code(s): C50.919 - MALIGNANT NEOPLASM OF UNSP SITE OF UNSPECIFIED FEMALE BREAST Qualifiers: Breast location: central portion of breast Laterality: left Assessment/Plan - Problems (1) Hematemesis Assessment/Plan: -Had EGD this admission-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 , source of the bleed -Seen by GI--GI follow up regarding AC -H/H dropping--Transfused 2 units prbc--hgb 11 -AC on hold Code(s): K92.0 - HEMATEMESIS (2) Weakness Assessment/Plan: -OOB -Physical therapy Code(s): R53.1 - WEAKNESS (3) A-fib Assessment/Plan: -Chronic -AC on hold due to GI bleed -Tele monitoring -Cardiology consult noted Code(s): I48.91 - UNSPECIFIED ATRIAL FIBRILLATION Qualifiers: Atrial fibrillation type: chronic Qualified Code(s): I48.2 - Chronic atrial fibrillation (4) Slurred speech Assessment/Plan: -CT head unremarkable -Unable to do MRI due to PM -Neurology consult pending -Cardiology consult -Passed bedside swallow, was able to take her medications with no coughing Code(s): R47.81 - SLURRED SPEECH (5) Breast cancer Assessment/Plan: -Oncology on board Code(s): C50.919 - MALIGNANT NEOPLASM OF UNSP SITE OF UNSPECIFIED FEMALE BREAST Qualifiers: Breast location: central portion of breast Laterality: left (6) Anemia Assessment/Plan: -Iron levels l ow -Venofer 200 mg daily x 3 days-given -Transfuse -monitor H/H -Transfuse for hgb<8.0 -Check B12 and thyroid profile as well Code(s): D64.9 - ANEMIA, UNSPECIFIED (7) Hypothyroidism Assessment/Plan: -TSH high -Synthroid to 150 Physical Therapy
[2017-11-13] MEDS ORDERED: PT OWN MED DRAWER 7, Y5N ONE (10:34)
[2017-11-13] MEDS: BACITRACIN 15 GM TUBE TOPICAL OINTMENT TP SCH ×2 (10:36→21:10)
[2017-11-13] MEDS: IRON SUCROSE INJECTION 200 MG in SODIUM CHLORIDE 90 ML IVPB SCH (10:36)
[2017-11-13] MEDS: AMINO ACIDS/PROTEIN HYDROLYS 30 ML LIQUID.PKT PO SCH ×2 (10:36→17:16)
[2017-11-13] MEDS: SUCRALFATE 1 GM/10 ML UNIT DOSE CUPS PO SCH ×4 (10:36→21:10)
[2017-11-13] MEDS: BUDESONIDE/FORMETEROL FUMARATE 160/4.5 mcg INHALER IH SCH ×2 (10:36→21:11)
[2017-11-13] MEDS: PANTOPRAZOLE 40 MG TABLET (FP) PO SCH ×2 (10:36→21:10)
[2017-11-13] MEDS: METOPROLOL TARTRATE 50 MG TABLET (FP) PO SCH ×2 (10:36→21:10)
[2017-11-13] MEDS: MULTIVITAMINS (DAILY MVI) TABLET (FP) PO SCH (10:36)
[2017-11-13 11:36] LABS: ANISOCYTOSIS 1+
[2017-11-13 11:37] LABS: PLATELET ESTIMATE DECREASED
--- NOTE | 2017-11-13 13:01 | PN ---
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 Tolerating diet. Diet upgraded by GI to chopped diet.
--- NOTE | 2017-11-13 18:46 | PN ---
GI Progress Note Subjective: GI NOte: Tolerating diet so far. No N/V - Objective Vital Signs: Vital Signs Temperature 98.2 F 11/13/17 14:00 Pulse Rate 84 11/13/17 14:00 Respiratory Rate 11/13/17 14:00 Blood Pressure 121/81 11/13/17 14:00 O2 Sat by Pulse Oximetry (%) 98 11/13/17 10:00 ...Auscultate: Yes: Normoactive Bowel Sounds ...Palpate: Yes: Soft, Other (nontender) Labs: CBC, BMP 11/13/17 06:00 11/13/17 06:00 INR, PTT INR 0.96 (0.83-1.09) 11/08/17 05:45 Problem List - Problems (1) Hematemesis Assessment/Plan: Pyloric channel ulcer with bleeding and partial gastric obstruction. Continue trial of chopped diet. Situation discussed with daughter Code(s): K92.0 - HEMATEMESIS (2) Breast cancer Code(s): C50.919 - MALIGNANT NEOPLASM OF UNSP SITE OF UNSPECIFIED FEMALE BREAST Qualifiers: Breast location: central portion of breast Laterality: left (3) Severe malnutrition Code(s): E43 - UNSPECIFIED SEVERE PROTEIN-CALORIE MALNUTRITION
[2017-11-13] MEDS: MIRTAZAPINE 15 MG TABLET (FP) PO SCH (21:10)
[2017-11-13] MEDS: ATORVASTATIN CA 20 MG TABLET (FP) PO SCH (21:10)
[2017-11-13] MEDS: DEXTROSE 5%-0.45% SALINE 1,000 ML IV SCH (23:13)
[2017-11-14] MEDS: MAG HYDROX/AL HYDROX/SIMETH 30 ML UNIT-DOSE CUP PO SCH ×3 (06:16→18:02)
[2017-11-14] MEDS: LEVOTHYROXINE NA 75 MCG TABLET (FP) PO SCH (06:17)
--- NOTE | 2017-11-14 07:55 | PN ---
Progress Note (short form) - Note Progress Note: Patient seen and examined Remains in bed most of day No abdominal complaints Diet slowly being advanced per G.I. Complains of some SOB Last Vital Signs Temp Pulse Resp BP Pulse Ox 98.1 F 92 H 18 129/77 98 11/14/17 05:58 11/14/17 05:58 11/14/17 05:58 11/14/17 05:58 11/13/17 21:00 HEENT: LEMUEL, EOM Intact Oropharynx: No thrush, No mucositis Neck: Supple Nodes: Without adenopathy Breasts: Without masses (R) ; left chest wall negative Cor: RSR, No murmurs, No gallops Lungs:Rhonchi and decreased breased sounds Abd: Soft, Normal bowel sounds, No organomegaly Ext:No significant edema Skin: No rashes, Integument intact CBC, BMP 11/13/17 06:00 11/13/17 06:00 Current Medications Generic Name Dose Route Start Last Admin Trade Name Freq PRN Reason Stop Dose Admin Al Hydroxide/Mg Hydroxide 30 ml 11/08/17 13:30 11/14/17 06:16 Mylanta Oral Suspension - PO 30 ml Q6HPO DESTIN Administration Amino Acids 30 ml 11/08/17 08:00 11/13/17 17:16 Prosource No Carb Liquid Pkt PO 30 ml BID@0800,1730 DESTIN Administration Atorvastatin Calcium 20 mg 11/10/17 22:00 11/13/17 21:10 Lipitor - PO 20 mg HS DESTIN Administration Bacitracin 1 applic 11/11/17 22:30 11/13/17 21:10 Bacitracin - TP 1 applic BID DESTIN Administration Budesonide/Formoterol Fumarate 2 puff 11/07/17 22:00 11/13/17 21:11 Symbicort 160/4.5mcg - IH 2 puff BID DESTIN Administration Dextrose/Sodium Chloride 1,000 mls @ 60 mls/hr 11/07/17 21:33 11/13/17 23:13 D5-1/2ns - IV 60 mls/hr ASDIR DESTIN Administration Iron Sucrose 200 mg/ Sodium 100 mls @ 100 mls/hr 11/10/17 10:00 11/13/17 10: 36 Chloride IVPB 100 mls/hr DAILY DESTIN Administration Levothyroxine Sodium 150 mcg 11/12/17 08:51 11/14/17 06:17 Synthroid - PO 150 mcg DAILY@0700 DESTIN Administration Metoprolol Tartrate 50 mg 11/07/17 22:00 11/13/17 21:10 Lopressor - PO 50 mg BID DESTIN Administration Mirtazapine 7.5 mg 11/09/17 22:00 11/13/17 21:10 Remeron - PO 7.5 mg HS DESTIN Administration Multivitamins/Minerals/Vitamin C 1 tab 11/08/17 10:00 11/13/17 10:36 Tab-A-Vit - PO 1 tab DAILY DESTIN Administration Ondansetron HCl 4 mg 11/07/17 21:33 Zofran Injection IVPB Q6H PRN NAUSEA Pantoprazole Sodium 40 mg 11/12/17 22:00 11/13/17 21:10 Protonix - PO 40 mg BID DESTIN Administration Sucralfate 1 gm 11/08/17 18:00 11/13/17 21:10 Carafate Oral Suspension - PO 1 gm QID DESTIN Administration Tramadol HCl 50 mg 11/12/17 10:57 11/12/17 11:14 Ultram - PO 50 mg Q8H PRN Administration PAIN LEVEL 4 - 6 Impression: Pyloric channel ulcer with partial gastric outlet obstruction Metastatic breast ca Plan: Advance diet per GI Chemotherpay on hold Needs aggressive Physiotherpy. Problem List - Problems (1) Gastrointestinal bleed Code(s): K92.2 - GASTROINTESTINAL HEMORRHAGE, UNSPECIFIED (2) Breast cancer, left Code(s): C50.912 - MALIGNANT NEOPLASM OF UNSPECIFIED SITE OF LEFT FEMALE BREAST Qualifiers: Estrogen receptor status: positive Patient sex: female (3) Hyperkalemia Code(s): E87.5 - HYPERKALEMIA
[2017-11-14] MEDS: AMINO ACIDS/PROTEIN HYDROLYS 30 ML LIQUID.PKT PO SCH ×2 (08:27→18:02)
[2017-11-14 09:53] LABS: BASO % 0.6 % (0-2.0); EOS % 1.3 % (0-4.5); HEMOGLOBIN 11.7 GM/dL (10.7-15.3); LYMPH % 6.7 % (8-40); MCH 29.7 pg (25.7-33.7); MCHC 34.5 g/dl (32.0-36.0); MEAN CELL VOLUME 86.3 fl (80-96); MONO % 10.4 % (3.8-10.2); PLATELET COUNT 98 K/MM3 (134-434); RBC 3.94 M/mm3 (3.60-5.2); WHITE BLOOD COUNT 7.3 K/mm3 (4.0-10.0)
[2017-11-14 10:15] LABS: ALK PHOS 146 U/L (45-117); ANION GAP 10 (8-16); BILIRUBIN,TOTAL 0.5 mg/dL (0.2-1.0); BLOOD UREA NITROGEN 24 mg/dL (7-18); CALCIUM 8.3 mg/dL (8.5-10.1); CHLORIDE 105 mmol/L (98-107); CO2 25 mmol/L (21-32); CREATININE 0.7 mg/dL (0.55-1.02); GLUCOSE,RANDOM 167 mg/dL (74-106); POTASSIUM 3.9 mmol/L (3.5-5.1); SGOT/AST 56 U/L (15-37); SGPT/ALT 22 U/L (12-78); SODIUM 140 mmol/L (136-145); TOT PROT 4.3 g/dl (6.4-8.2)
--- NOTE | 2017-11-14 10:29 | PN ---
Progress Note, Physician Chief Complaint: AWAKE ALERT DENIES CHEST PAIN APPEARS WEAK AND TIRED THIS IS MY FIRST ENCOUNTER WITH THIS PATIENT - Current Medication List Current Medications: Active Medications Al Hydroxide/Mg Hydroxide (Mylanta Oral Suspension -) 30 ml PO Q6HPO REPLACED BY [facility] Last Admin: 11/14/17 06:16 Dose: 30 ml Amino Acids (Prosource No Carb Liquid Pkt) 30 ml PO BID@0800,1730 REPLACED BY [facility] Last Admin: 11/14/17 08:27 Dose: 30 ml Atorvastatin Calcium (Lipitor -) 20 mg PO HS REPLACED BY [facility] Last Admin: 11/13/17 21:10 Dose: 20 mg Bacitracin (Bacitracin -) 1 applic TP BID REPLACED BY [facility] Last Admin: 11/13/17 21:10 Dose: 1 applic Budesonide/Formoterol Fumarate (Symbicort 160/4.5mcg -) 2 puff IH BID REPLACED BY [facility] Last Admin: 11/13/17 21:11 Dose: 2 puff Dextrose/Sodium Chloride (D5-1/2ns -) 1,000 mls @ 60 mls/hr IV ASDIR REPLACED BY [facility] Last Admin: 11/13/17 23:13 Dose: 60 mls/hr Iron Sucrose 200 mg/ Sodium (Chloride) 100 mls @ 100 mls/hr IVPB DAILY REPLACED BY [facility] Last Admin: 11/13/17 10:36 Dose: 100 mls/hr Levothyroxine Sodium (Synthroid -) 150 mcg PO DAILY@0700 REPLACED BY [facility] Last Admin: 11/14/17 06:17 Dose: 150 mcg Metoprolol Tartrate (Lopressor -) 50 mg PO BID REPLACED BY [facility] Last Admin: 11/13/17 21:10 Dose: 50 mg Mirtazapine (Remeron -) 7.5 mg PO HS REPLACED BY [facility] Last Admin: 11/13/17 21:10 Dose: 7.5 mg Multivitamins/Minerals/Vitamin C (Tab-A-Vit -) 1 tab PO DAILY REPLACED BY [facility] Last Admin: 11/13/17 10:36 Dose: 1 tab Ondansetron HCl (Zofran Injection) 4 mg IVPB Q6H PRN PRN Reason: NAUSEA Pantoprazole Sodium (Protonix -) 40 mg PO BID REPLACED BY [facility] Last Admin: 11/13/17 21:10 Dose: 40 mg Sucralfate (Carafate Oral Suspension -) 1 gm PO QID REPLACED BY [facility] Last Admin: 11/13/17 21:10 Dose: 1 gm Tramadol HCl (Ultram -) 50 mg PO Q8H PRN PRN Reason: PAIN LEVEL 4 - 6 Last Admin: 11/12/17 11:14 Dose: 50 mg - Objective Vital Signs: Vital Signs Temperature 98.1 F 11/14/17 05:58 Pulse Rate 92 H 11/14/17 05:58 Respiratory Rate 18 11/14/17 05:58 Blood Pressure 129/77 11/14/17 05:58 O2 Sat by Pulse Oximetry (%) 98 11/13/17 21:00 Constitutional: Yes: Mild Distress, Thin Eyes: Yes: WNL HENT: Yes: WNL Neck: Yes: WNL Cardiovascular: Yes: WNL Respiratory: Yes: WNL Gastrointestinal: Yes: WNL Genitourinary: Yes: Other Musculoskeletal: Yes: Muscle Weakness Extremities: Yes: WNL Edema: No Peripheral Pulses WNL: Yes Integumentary: Yes: WNL Wound/Incision: Yes: Clean/Dry Neurological: Yes: WNL ...Motor Strength: WNL Psychiatric: Yes: WNL Labs: CBC, BMP 11/14/17 09:30 11/14/17 09:30 INR, PTT INR 0.96 (0.83-1.09) 11/08/17 05:45 Problem List - Problems (1) Anemia Code(s): D64.9 - ANEMIA, UNSPECIFIED (2) Hematemesis Code(s): K92.0 - HEMATEMESIS (3) Severe malnutrition Code(s): E43 - UNSPECIFIED SEVERE PROTEIN-CALORIE MALNUTRITION (4) Breast cancer Code(s): C50.919 - MALIGNANT NEOPLASM OF UNSP SITE OF UNSPECIFIED FEMALE BREAST Qualifiers: Breast location: central portion of breast Laterality: left Assessment/Plan TRANSFUSE PRBC NEEDED OOB TO CHAIR PT EVAL ONC/GI EVAL APPRECIATED PPI CBC IN AM
[2017-11-14] MEDS: MULTIVITAMINS (DAILY MVI) TABLET (FP) PO SCH (11:05)
[2017-11-14] MEDS: PANTOPRAZOLE 40 MG TABLET (FP) PO SCH ×2 (11:05→22:11)
[2017-11-14] MEDS: SUCRALFATE 1 GM/10 ML UNIT DOSE CUPS PO SCH ×4 (11:05→22:09)
[2017-11-14] MEDS: METOPROLOL TARTRATE 50 MG TABLET (FP) PO SCH ×2 (11:05→22:11)
[2017-11-14] MEDS: IRON SUCROSE INJECTION 200 MG in SODIUM CHLORIDE 90 ML IVPB SCH (11:06)
[2017-11-14] MEDS: BUDESONIDE/FORMETEROL FUMARATE 160/4.5 mcg INHALER IH SCH ×2 (11:06→22:33)
[2017-11-14] MEDS: BACITRACIN 15 GM TUBE TOPICAL OINTMENT TP SCH ×2 (11:15→22:35)
[2017-11-14] MEDS ORDERED: PT OWN MED DRAWER 7, Y5N ONE ×2 (11:15→20:16)
--- NOTE | 2017-11-14 12:17 | PATH ---
Surgical Pathology Report Patient Name: DC CUMMINGS [facility]. Rec. #: [id number] /Age/Gender: 1940 (Age: 77) / F Account: [id number] Location: 4 PEDS/ADOL Taken: 11/08/2017 Received: 11/08/2017 Reported: 11/14/2017 Physicians: Lai Russo M.D. Specimen(s) Received A: BX ANTRUM B: BX PYLORUS CHANNEL STRICTURE Clinical History Upper GI bleed Postoperative diagnosis: Pyloric channel stricture and ulcer, hiatal hernia, radiation esophagitis Final Diagnosis A. ANTRUM, BIOPSY: Gastric ANTRAL mucosa with MILD chronic gastritis. Immunohistochemical STAIN FOR H. Pylori is negative. B. PYLORUS CHANNEL STRICTURE, BIOPSY: GASTRIC MUCOSA WITH ACUTE INFLAMMATION, ULCERATION, AND REACTIVE CHANGES CONSISTENT WITH RADIATION THERAPY EFFECT. DETACHED FRAGMENT OF ACUTE NECROINFLAMMATORY INFILTRATE CONSISTENT WITH ULCER DEBRIS WITH IMBEDDED KAYEXALATE RESINS. Immunohistochemical STAIN FOR H. Pylori is negative. Immunohistochemical STAIN FOR CMV is negative. SEE COMMENT. Comment: Part B, Biopsy shows Kayexalate resins concentrated within the necroinflammatory ulcer debris coupled with the history of radiation, may be contributing factors to this injury pattern. Endoscopic impression of radiation esophagitis, stomach ulceration and stricture noted. History of Sodium Polystyrene sulfonate (Kayexalate) medication noted on medical chart. Suggest clinical correlation. Findings discussed with Dr. Holley. Electronically Signed By Tricia Kraft M.D. Rupali Arthur M.D. Gross Description A. Received in formalin, labeled "biopsy antrum" is a wilson, irregular portion of soft tissue measuring 0.4 cm. in greatest dimension. The specimen is submitted in toto in one cassette. B. Received in formalin, labeled "biopsy pyloric channel stricture" are 2 wilson, irregular portions of soft tissue averaging 0.2 cm. in greatest dimension. The specimens are submitted in toto in one cassette. 11/08/2017 saudi11/08/2017
[2017-11-14] MEDS: MIRTAZAPINE 15 MG TABLET (FP) PO SCH (22:10)
[2017-11-14] MEDS: ATORVASTATIN CA 20 MG TABLET (FP) PO SCH (22:12)
[2017-11-14] MEDS: DEXTROSE 5%-0.45% SALINE 1,000 ML IV SCH (22:37)
--- NOTE | 2017-11-14 22:37 | PN ---
Progress Note (short form) - Note Progress Note: GI NOte: Asleep so I did not awaken. Nursing informs me that Brian had no vomiting. I discussed her gastric biopsies with the pathologist today who feels that Kayexalate may have played a role in the gastric ulceration. No malignancy was seen. No HP seen. CVontinue current diet and PPI. Will get UGI to assess pyloric channel caliber for comparison on the future Problem List - Problems (1) Hematemesis Code(s): K92.0 - HEMATEMESIS (2) Breast cancer Code(s): C50.919 - MALIGNANT NEOPLASM OF UNSP SITE OF UNSPECIFIED FEMALE BREAST Qualifiers: Breast location: central portion of breast Laterality: left (3) Severe malnutrition Code(s): E43 - UNSPECIFIED SEVERE PROTEIN-CALORIE MALNUTRITION
[2017-11-15] MEDS: MAG HYDROX/AL HYDROX/SIMETH 30 ML UNIT-DOSE CUP PO SCH ×4 (05:50→18:08)
[2017-11-15] MEDS: LEVOTHYROXINE NA 75 MCG TABLET (FP) PO SCH (06:17)
[2017-11-15 07:51] LABS: HEMATOCRIT 36.9 % (32.4-45.2); HEMOGLOBIN 12.5 GM/dL (10.7-15.3); MEAN CELL VOLUME 88.2 fl (80-96); PLATELET COUNT 95 K/MM3 (134-434); RBC 4.18 M/mm3 (3.60-5.2); RDW 19.5 % (11.6-15.6); WHITE BLOOD COUNT 7.4 K/mm3 (4.0-10.0)
[2017-11-15 07:57] LABS: CHLORIDE 105 mmol/L (98-107); POTASSIUM 4.2 mmol/L (3.5-5.1); SODIUM 141 mmol/L (136-145)
[2017-11-15 08:03] LABS: ANION GAP 10 (8-16); BLOOD UREA NITROGEN 23 mg/dL (7-18); CALCIUM 8.5 mg/dL (8.5-10.1); CO2 26 mmol/L (21-32); CREATININE 0.6 mg/dL (0.55-1.02); GLUCOSE,RANDOM 85 mg/dL (74-106)
--- NOTE | 2017-11-15 08:42 | PN ---
Progress Note (short form) - Note Progress Note: Patient seen and examined Prior GI note reviewed Last Vital Signs Temp Pulse Resp BP Pulse Ox 97.6 F 89 21 143/94 95 11/15/17 06:00 11/15/17 06:00 11/15/17 06:00 11/15/17 06:00 11/14/17 09:00 HEENT: LEMUEL, EOM Intact Oropharynx: No thrush, No mucositis Breasts: Without masses on right Left chest wall negative Cor: RSR, No murmurs, No gallops Lungs: Diminished breath sounds bilaterally Abd: Soft, Normal bowel sounds, No organomegaly Ext:No significant edema Skin: No rashes, Integument intact CBC, BMP 11/15/17 06:00 11/15/17 06:00 Current Medications Generic Name Dose Route Start Last Admin Trade Name Freq PRN Reason Stop Dose Admin Al Hydroxide/Mg Hydroxide 30 ml 11/08/17 13:30 11/15/17 05:51 Mylanta Oral Suspension - PO Not Given Q6HPO DESTIN Amino Acids 30 ml 11/08/17 08:00 11/14/17 18:02 Prosource No Carb Liquid Pkt PO 30 ml BID@0800,1730 DESTIN Administration Atorvastatin Calcium 20 mg 11/10/17 22:00 11/14/17 22:12 Lipitor - PO 20 mg HS DESTIN Administration Bacitracin 1 applic 11/11/17 22:30 11/14/17 22:35 Bacitracin - TP 1 applic BID DESTIN Administration Budesonide/Formoterol Fumarate 2 puff 11/07/17 22:00 11/14/17 22:33 Symbicort 160/4.5mcg - IH 2 puff BID DESTIN Administration Iron Sucrose 200 mg/ Sodium 100 mls @ 100 mls/hr 11/10/17 10:00 11/14/17 11: 06 Chloride IVPB 100 mls/hr DAILY DESTIN Administration Levothyroxine Sodium 150 mcg 11/12/17 08:51 11/15/17 06:17 Synthroid - PO 150 mcg DAILY@0700 DESTIN Administration Metoprolol Tartrate 50 mg 11/07/17 22:00 11/14/17 22:11 Lopressor - PO 50 mg BID DESTIN Administration Mirtazapine 7.5 mg 11/09/17 22:00 11/14/17 22:10 Remeron - PO 7.5 mg HS DESTIN Administration Multivitamins/Minerals/Vitamin C 1 tab 11/08/17 10:00 11/14/17 11:05 Tab-A-Vit - PO 1 tab DAILY DESTIN Administration Ondansetron HCl 4 mg 11/07/17 21:33 Zofran Injection IVPB Q6H PRN NAUSEA Pantoprazole Sodium 40 mg 11/12/17 22:00 11/14/17 22:11 Protonix - PO 40 mg BID DESTIN Administration Sucralfate 1 gm 11/08/17 18:00 11/14/17 22:09 Carafate Oral Suspension - PO 1 gm QID DESTIN Administration Tramadol HCl 50 mg 11/12/17 10:57 11/12/17 11:14 Ultram - PO 50 mg Q8H PRN Administration PAIN LEVEL 4 - 6 Warfarin Sodium 2.5 mg 11/15/17 18:00 Coumadin - PO 11/15/17 18:01 ONCE@1800 ONE Impression: Metastatic breast ca Pyloric channel yolie For GI assessment with follow up GI series. Problem List - Problems (1) Gastrointestinal bleed Code(s): K92.2 - GASTROINTESTINAL HEMORRHAGE, UNSPECIFIED (2) Breast cancer, left Code(s): C50.912 - MALIGNANT NEOPLASM OF UNSPECIFIED SITE OF LEFT FEMALE BREAST Qualifiers: Estrogen receptor status: positive Patient sex: female (3) Hyperkalemia Code(s): E87.5 - HYPERKALEMIA
[2017-11-15] MEDS ORDERED: PT OWN MED DRAWER 7, Y5N ONE ×2 (10:35→22:46)
--- NOTE | 2017-11-15 10:47 | PN ---
Progress Note, SL[facility]ER - Note Progress Note: Selected Entries 11/12/17 11/12/17 11/12/17 02:00 06:00 09:44 Breakfast 75% Lunch Supper Temperature 98.3 F 98.5 F 11/12/17 11/12/17 11/12/17 09:50 12:36 18:38 Breakfast Lunch 75% Supper 50% Temperature 97.7 F 98.2 F 11/12/17 11/12/17 11/12/17 22:00 22:45 23:00 Breakfast Lunch Supper 50% Temperature 98.4 F 98.3 F 11/13/17 11/13/17 01:10 05:00 Breakfast Lunch Supper Temperature 97.5 F L 98.1 F Laboratory Tests 11/13/17 06:00 WBC 8.1 Selected Entries 11/14/17 11/14/17 11/14/17 02:00 05:58 08:25 Breakfast 50% Lunch Supper Temperature 98.3 F 98.1 F 11/14/17 11/14/17 11/14/17 10:00 13:35 18:35 Breakfast Lunch 50% Supper 25% Temperature 97.8 F 98.0 F 98.2 F 11/14/17 11/15/17 11/15/17 22:00 02:00 06:00 Breakfast Lunch Supper Temperature 98.3 F 97.7 F 97.6 F Seen yesterday-Late entry- Speech/right facial improving. Tolerating diet. Diet upgraded by GI to chopped diet. Pt dislikes the chopped meat and Ensure. Reviewed with family and Dietary. Suggest adding tuna fish,egg salad, chicken salad. No celery/onions. Trial Ensure clear.
[2017-11-15] MEDS: METOPROLOL TARTRATE 50 MG TABLET (FP) PO SCH ×2 (10:50→22:27)
[2017-11-15] MEDS: IRON SUCROSE INJECTION 200 MG in SODIUM CHLORIDE 90 ML IVPB SCH (10:50)
[2017-11-15] MEDS: PANTOPRAZOLE 40 MG TABLET (FP) PO SCH ×2 (10:50→22:27)
[2017-11-15] MEDS: MULTIVITAMINS (DAILY MVI) TABLET (FP) PO SCH (10:50)
[2017-11-15] MEDS: AMINO ACIDS/PROTEIN HYDROLYS 30 ML LIQUID.PKT PO SCH ×2 (10:50→18:08)
[2017-11-15] MEDS: SUCRALFATE 1 GM/10 ML UNIT DOSE CUPS PO SCH ×4 (10:50→22:26)
[2017-11-15] MEDS: BUDESONIDE/FORMETEROL FUMARATE 160/4.5 mcg INHALER IH SCH ×2 (10:51→22:28)
[2017-11-15] MEDS: BACITRACIN 15 GM TUBE TOPICAL OINTMENT TP SCH ×2 (10:51→22:26)
--- NOTE | 2017-11-15 14:25 | PN ---
Progress Note, Physician Chief Complaint: AWAKE ALERT FAMILY BEDSIDE APPETITE IMPROVING - Current Medication List Current Medications: Active Medications Al Hydroxide/Mg Hydroxide (Mylanta Oral Suspension -) 30 ml PO Q6HPO [facility] Last Admin: 11/15/17 12:58 Dose: 30 ml Amino Acids (Prosource No Carb Liquid Pkt) 30 ml PO BID@0800,1730 [facility] Last Admin: 11/15/17 10:50 Dose: 30 ml Atorvastatin Calcium (Lipitor -) 20 mg PO [facility] Last Admin: 11/14/17 22:12 Dose: 20 mg Bacitracin (Bacitracin -) 1 applic TP BID [facility] Last Admin: 11/15/17 10:51 Dose: 1 applic Budesonide/Formoterol Fumarate (Symbicort 160/4.5mcg -) 2 puff IH BID [facility] Last Admin: 11/15/17 10:51 Dose: 2 puff Enoxaparin Sodium (Lovenox -) 60 mg SQ Q12H [facility] Iron Sucrose 200 mg/ Sodium (Chloride) 100 mls @ 100 mls/hr IVPB DAILY [facility] Last Admin: 11/15/17 10:50 Dose: 100 mls/hr Levothyroxine Sodium (Synthroid -) 150 mcg PO DAILY@0700 [facility] Last Admin: 11/15/17 06:17 Dose: 150 mcg Metoprolol Tartrate (Lopressor -) 50 mg PO BID [facility] Last Admin: 11/15/17 10:50 Dose: 50 mg Mirtazapine (Remeron -) 7.5 mg PO [facility] Last Admin: 11/14/17 22:10 Dose: 7.5 mg Multivitamins/Minerals/Vitamin C (Tab-A-Vit -) 1 tab PO DAILY [facility] Last Admin: 11/15/17 10:50 Dose: 1 tab Ondansetron HCl (Zofran Injection) 4 mg IVPB Q6H PRN PRN Reason: NAUSEA Pantoprazole Sodium (Protonix -) 40 mg PO BID [facility] Last Admin: 11/15/17 10:50 Dose: 40 mg Sucralfate (Carafate Oral Suspension -) 1 gm PO QID [facility] Last Admin: 11/15/17 13:00 Dose: 1 gm Warfarin Sodium (Coumadin -) 2.5 mg PO ONCE@1800 ONE Stop: 11/15/17 18:01 - Objective Vital Signs: Vital Signs Temperature 97.5 F L 11/15/17 10:00 Pulse Rate 105 H 11/15/17 10:00 Respiratory Rate 21 11/15/17 10:00 Blood Pressure 149/79 11/15/17 10:00 O2 Sat by Pulse Oximetry (%) 95 11/15/17 09:00 Constitutional: Yes: Mild Distress Eyes: Yes: WNL HENT: Yes: WNL Neck: Yes: WNL Cardiovascular: Yes: Pulse Irregular Respiratory: Yes: WNL Gastrointestinal: Yes: WNL Genitourinary: Yes: Incontinence Musculoskeletal: Yes: Muscle Weakness Extremities: Yes: WNL Edema: No Peripheral Pulses WNL: Yes Integumentary: Yes: Erythema Wound/Incision: Yes: Dressing Dry and Intact Neurological: Yes: Pre-Existing Deficit, Unsteady Gait ...Motor Strength: LLE, RLE Psychiatric: Yes: WNL Labs: CBC, BMP 11/15/17 06:00 11/15/17 06:00 INR, PTT INR 0.96 (0.83-1.09) 11/08/17 05:45 Problem List - Problems (1) Anemia Code(s): D64.9 - ANEMIA, UNSPECIFIED (2) Hematemesis Code(s): K92.0 - HEMATEMESIS (3) Severe malnutrition Code(s): E43 - UNSPECIFIED SEVERE PROTEIN-CALORIE MALNUTRITION (4) Breast cancer Code(s): C50.919 - MALIGNANT NEOPLASM OF UNSP SITE OF UNSPECIFIED FEMALE BREAST Qualifiers: Breast location: central portion of breast Laterality: left Assessment/Plan STARTING LOVENOX 50MG BID FOR AFIB TX BRIDGE TO COUMADIN ONCE GI WORKUP COMPLETED OOB TO CHAIR WITH ASSIST GI SERIES DONE AWAIT RESULTS CHECK LABS MONITOR H/H
[2017-11-15] MEDS ORDERED: WARFARIN NA 2.5 MG TABLET (FP) PO ONE (18:00)
[2017-11-15] MEDS: MIRTAZAPINE 15 MG TABLET (FP) PO SCH (22:26)
[2017-11-15] MEDS: ENOXAPARIN NA (PORCINE) 60 MG/0.6 ML DISP.SYRIN SQ SCH (22:27)
[2017-11-15] MEDS: ATORVASTATIN CA 20 MG TABLET (FP) PO SCH (22:27)
[2017-11-16] MEDS: MAG HYDROX/AL HYDROX/SIMETH 30 ML UNIT-DOSE CUP PO SCH ×4 (00:05→18:08)
[2017-11-16] MEDS: LEVOTHYROXINE NA 75 MCG TABLET (FP) PO SCH (06:33)
[2017-11-16 07:22] LABS: BASO % 0.6 % (0-2.0); EOS % 1.1 % (0-4.5); HEMATOCRIT 35.5 % (32.4-45.2); LYMPH % 5.6 % (8-40); MCH 29.8 pg (25.7-33.7); MCHC 33.8 g/dl (32.0-36.0); MEAN CELL VOLUME 88.1 fl (80-96); MEAN PLT VOLUME 8.1 fl (7.5-11.1); MONO % 9.5 % (3.8-10.2); NEUT % 83.2 % (42.8-82.8); PLATELET COUNT 95 K/MM3 (134-434); RBC 4.03 M/mm3 (3.60-5.2); RDW 19.8 % (11.6-15.6); WHITE BLOOD COUNT 8.1 K/mm3 (4.0-10.0)
[2017-11-16 07:38] LABS: INR 1.03 (0.83-1.09); PROTHROMBIN TIME (PATIENT) 11.6 SEC (9.7-13.0)
[2017-11-16 07:42] LABS: ANION GAP 6 (8-16); BLOOD UREA NITROGEN 25 mg/dL (7-18); CALCIUM 8.5 mg/dL (8.5-10.1); CHLORIDE 106 mmol/L (98-107); CO2 30 mmol/L (21-32); CREATININE 0.6 mg/dL (0.55-1.02); GLUCOSE,RANDOM 80 mg/dL (74-106); MAGNESIUM 2.3 mg/dL (1.8-2.4); POTASSIUM 4.2 mmol/L (3.5-5.1); SODIUM 142 mmol/L (136-145)
[2017-11-16] MEDS: AMINO ACIDS/PROTEIN HYDROLYS 30 ML LIQUID.PKT PO SCH ×2 (08:44→18:08)
--- NOTE | 2017-11-16 08:52 | PN ---
Progress Note, Physician History of Present Illness: feels tired no other complaints - Current Medication List Current Medications: Active Medications Al Hydroxide/Mg Hydroxide (Mylanta Oral Suspension -) 30 ml PO Q6HPO [facility] Last Admin: 11/16/17 06:33 Dose: Not Given Amino Acids (Prosource No Carb Liquid Pkt) 30 ml PO BID@0800,1730 [facility] Last Admin: 11/16/17 08:44 Dose: 30 ml Atorvastatin Calcium (Lipitor -) 20 mg PO [facility] Last Admin: 11/15/17 22:27 Dose: 20 mg Bacitracin (Bacitracin -) 1 applic TP BID [facility] Last Admin: 11/15/17 22:26 Dose: 1 applic Budesonide/Formoterol Fumarate (Symbicort 160/4.5mcg -) 2 puff IH BID [facility] Last Admin: 11/15/17 22:28 Dose: 2 puff Enoxaparin Sodium (Lovenox -) 50 mg SQ BID [facility] Last Admin: 11/15/17 22:27 Dose: 50 mg Levothyroxine Sodium (Synthroid -) 150 mcg PO DAILY@0700 [facility] Last Admin: 11/16/17 06:33 Dose: 150 mcg Metoprolol Tartrate (Lopressor -) 50 mg PO BID [facility] Last Admin: 11/15/17 22:27 Dose: 50 mg Mirtazapine (Remeron -) 7.5 mg PO [facility] Last Admin: 11/15/17 22:26 Dose: 7.5 mg Multivitamins/Minerals/Vitamin C (Tab-A-Vit -) 1 tab PO DAILY [facility] Last Admin: 11/15/17 10:50 Dose: 1 tab Ondansetron HCl (Zofran Injection) 4 mg IVPB Q6H PRN PRN Reason: NAUSEA Pantoprazole Sodium (Protonix -) 40 mg PO BID [facility] Last Admin: 11/15/17 22:27 Dose: 40 mg Sucralfate (Carafate Oral Suspension -) 1 gm PO QID [facility] Last Admin: 11/15/17 22:26 Dose: 1 gm - Objective Vital Signs: Vital Signs Temperature 97.3 F L 11/16/17 04:49 Pulse Rate 104 H 11/16/17 04:49 Respiratory Rate 18 11/16/17 04:49 Blood Pressure 120/65 11/16/17 04:49 O2 Sat by Pulse Oximetry (%) 95 11/15/17 21:00 Cardiovascular: Yes: S1, S2 Respiratory: Yes: Regular, CTA Bilaterally Gastrointestinal: Yes: Normal Bowel Sounds, Soft Labs: CBC, BMP 11/16/17 06:00 11/16/17 06:00 INR, PTT INR 1.03 (0.83-1.09) 11/16/17 06:00 Problem List - Problems (1) Gastrointestinal bleed Code(s): K92.2 - GASTROINTESTINAL HEMORRHAGE, UNSPECIFIED (2) Hematemesis Code(s): K92.0 - HEMATEMESIS (3) A-fib Code(s): I48.91 - UNSPECIFIED ATRIAL FIBRILLATION Qualifiers: Atrial fibrillation type: chronic Qualified Code(s): I48.2 - Chronic atrial fibrillation (4) Breast cancer Code(s): C50.919 - MALIGNANT NEOPLASM OF UNSP SITE OF UNSPECIFIED FEMALE BREAST Qualifiers: Breast location: central portion of breast Laterality: left Assessment/Plan - Problems (1) Hematemesis Assessment/Plan: -Had EGD this admission-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 , source of the bleed -Seen by GI--GI follow up regarding AC -H/H dropping--Transfused 2 units prbc--hgb 11 -AC resumed Code(s): K92.0 - HEMATEMESIS (2) Weakness Assessment/Plan: -OOB -Physical therapy Code(s): R53.1 - WEAKNESS (3) A-fib Assessment/Plan: -Chronic -AC resumed -Tele monitoring -Cardiology consult noted Code(s): I48.91 - UNSPECIFIED ATRIAL FIBRILLATION Qualifiers: Atrial fibrillation type: chronic Qualified Code(s): I48.2 - Chronic atrial fibrillation (4) Slurred speech Assessment/Plan: -CT head unremarkable -Unable to do MRI due to PM -Neurology consult pending -Cardiology consult -Passed bedside swallow, was able to take her medications with no coughing Code(s): R47.81 - SLURRED SPEECH (5) Breast cancer Assessment/Plan: -Oncology on board Code(s): C50.919 - MALIGNANT NEOPLASM OF UNSP SITE OF UNSPECIFIED FEMALE BREAST Qualifiers: Breast location: central portion of breast Laterality: left (6) Anemia Assessment/Plan: -Iron levels l ow -Venofer 200 mg daily x 3 days-given -Transfuse -monitor H/H -Transfuse for hgb<8.0 -Check B12 and thyroid profile as well Code(s): D64.9 - ANEMIA, UNSPECIFIED (7) Hypothyroidism Assessment/Plan: -TSH high -Synthroid to 150 Physical Therapy
[2017-11-16] MEDS ORDERED: PT OWN MED DRAWER 7, Y5N ONE ×3 (09:23→20:05)
[2017-11-16] MEDS: BUDESONIDE/FORMETEROL FUMARATE 160/4.5 mcg INHALER IH SCH ×2 (09:27→21:12)
[2017-11-16] MEDS: METOPROLOL TARTRATE 50 MG TABLET (FP) PO SCH ×2 (09:27→21:12)
[2017-11-16] MEDS: ENOXAPARIN NA (PORCINE) 60 MG/0.6 ML DISP.SYRIN SQ SCH ×2 (09:28→21:12)
[2017-11-16] MEDS: MULTIVITAMINS (DAILY MVI) TABLET (FP) PO SCH (09:29)
[2017-11-16] MEDS: PANTOPRAZOLE 40 MG TABLET (FP) PO SCH ×2 (09:29→21:12)
[2017-11-16] MEDS: BACITRACIN 15 GM TUBE TOPICAL OINTMENT TP SCH ×2 (10:28→21:12)
[2017-11-16] MEDS: SUCRALFATE 1 GM/10 ML UNIT DOSE CUPS PO SCH ×4 (10:29→21:11)
--- NOTE | 2017-11-16 18:29 | PN ---
Progress Note (short form) - Note Progress Note: Patient seen in follow up. No new complaints. No significant events overnight. Inpatient Meds reviewed. Current Medications Generic Name Dose Route Start Last Admin Trade Name Freq PRN Reason Stop Dose Admin Al Hydroxide/Mg Hydroxide 30 ml 11/08/17 13:30 11/16/17 18:08 Mylanta Oral Suspension - PO 30 ml Q6HPO DESTIN Administration Amino Acids 30 ml 11/08/17 08:00 11/16/17 18:08 Prosource No Carb Liquid Pkt PO 30 ml BID@0800,1730 DESTIN Administration Atorvastatin Calcium 20 mg 11/10/17 22:00 11/15/17 22:27 Lipitor - PO 20 mg HS DESTIN Administration Bacitracin 1 applic 11/11/17 22:30 11/16/17 10:28 Bacitracin - TP 1 applic BID DESTIN Administration Budesonide/Formoterol Fumarate 2 puff 11/07/17 22:00 11/16/17 09:27 Symbicort 160/4.5mcg - IH 2 puff BID DESTIN Administration Enoxaparin Sodium 50 mg 11/15/17 22:00 11/16/17 09:28 Lovenox - SQ 50 mg BID DESTIN Administration Levothyroxine Sodium 150 mcg 11/12/17 08:51 11/16/17 06:33 Synthroid - PO 150 mcg DAILY@0700 DESTIN Administration Metoprolol Tartrate 50 mg 11/07/17 22:00 11/16/17 09:27 Lopressor - PO 50 mg BID DESTIN Administration Mirtazapine 7.5 mg 11/09/17 22:00 11/15/17 22:26 Remeron - PO 7.5 mg HS DESTIN Administration Multivitamins/Minerals/Vitamin C 1 tab 11/08/17 10:00 11/16/17 09:29 Tab-A-Vit - PO 1 tab DAILY DESTIN Administration Ondansetron HCl 4 mg 11/07/17 21:33 Zofran Injection IVPB Q6H PRN NAUSEA Pantoprazole Sodium 40 mg 11/12/17 22:00 11/16/17 09:29 Protonix - PO 40 mg BID DESTIN Administration Sucralfate 1 gm 11/08/17 18:00 11/16/17 18:08 Carafate Oral Suspension - PO 1 gm QID DESTIN Administration On Examination: Last Vital Signs Temp Pulse Resp BP Pulse Ox 98.0 F 91 H 18 117/66 97 11/16/17 14:00 11/16/17 14:00 11/16/17 14:00 11/16/17 14:00 11/16/17 09:00 General: In no acute distress, lying comfortably in bed. Extremities: No pallor or icterus. No pedal edema. No palpable lymphadenopathy. CVS: S1, S2, regular, no gallop or murmur. Chest: good air entry bilaterally, clear Abdomen: Non-distended, non-tender, no palpable organomegaly. Neuro: Alert, oriented, non-focal. Labs: CBC, BMP 11/16/17 06:00 11/16/17 06:00 Assessment. Metastatic breast cancer - with liver mets - ER positive - recently on Taxol, now held while admitted for GI bleed, attributed to pyloric channel ulcer. Ongoing management as per GI.
[2017-11-16] MEDS: MIRTAZAPINE 15 MG TABLET (FP) PO SCH (21:12)
[2017-11-16] MEDS: ATORVASTATIN CA 20 MG TABLET (FP) PO SCH (21:12)
[2017-11-17] MEDS: MAG HYDROX/AL HYDROX/SIMETH 30 ML UNIT-DOSE CUP PO SCH ×4 (00:05→18:06)
[2017-11-17] MEDS ORDERED: PT OWN MED DRAWER 7, Y5N ONE ×2 (05:29→09:05)
[2017-11-17] MEDS: LEVOTHYROXINE NA 75 MCG TABLET (FP) PO SCH (06:15)
[2017-11-17 08:20] LABS: BASO % 0.9 % (0-2.0); EOS % 0.8 % (0-4.5); HEMATOCRIT 34.3 % (32.4-45.2); HEMOGLOBIN 11.6 GM/dL (10.7-15.3); LYMPH % 6.5 % (8-40); MCHC 33.7 g/dl (32.0-36.0); MEAN CELL VOLUME 88.9 fl (80-96); MEAN PLT VOLUME 8.3 fl (7.5-11.1); MONO % 9.7 % (3.8-10.2); NEUT % 82.1 % (42.8-82.8); PLATELET COUNT 94 K/MM3 (134-434); RBC 3.86 M/mm3 (3.60-5.2); WHITE BLOOD COUNT 6.3 K/mm3 (4.0-10.0)
--- NOTE | 2017-11-17 08:27 | PN ---
Progress Note, Physician History of Present Illness: feels tired no other complaints - Current Medication List Current Medications: Active Medications Al Hydroxide/Mg Hydroxide (Mylanta Oral Suspension -) 30 ml PO Q6HPO [facility] Last Admin: 11/17/17 05:30 Dose: Not Given Amino Acids (Prosource No Carb Liquid Pkt) 30 ml PO BID@0800,1730 [facility] Last Admin: 11/16/17 18:08 Dose: 30 ml Atorvastatin Calcium (Lipitor -) 20 mg PO HS [facility] Last Admin: 11/16/17 21:12 Dose: 20 mg Bacitracin (Bacitracin -) 1 applic TP BID [facility] Last Admin: 11/16/17 21:12 Dose: 1 applic Budesonide/Formoterol Fumarate (Symbicort 160/4.5mcg -) 2 puff IH BID [facility] Last Admin: 11/16/17 21:12 Dose: 2 puff Enoxaparin Sodium (Lovenox -) 50 mg SQ BID [facility] Last Admin: 11/16/17 21:12 Dose: 50 mg Levothyroxine Sodium (Synthroid -) 150 mcg PO DAILY@0700 [facility] Last Admin: 11/17/17 06:15 Dose: 150 mcg Metoprolol Tartrate (Lopressor -) 50 mg PO BID [facility] Last Admin: 11/16/17 21:12 Dose: 50 mg Mirtazapine (Remeron -) 7.5 mg PO [facility] Last Admin: 11/16/17 21:12 Dose: 7.5 mg Multivitamins/Minerals/Vitamin C (Tab-A-Vit -) 1 tab PO DAILY [facility] Last Admin: 11/16/17 09:29 Dose: 1 tab Ondansetron HCl (Zofran Injection) 4 mg IVPB Q6H PRN PRN Reason: NAUSEA Pantoprazole Sodium (Protonix -) 40 mg PO BID [facility] Last Admin: 11/16/17 21:12 Dose: 40 mg Sucralfate (Carafate Oral Suspension -) 1 gm PO QID [facility] Last Admin: 11/16/17 21:11 Dose: 1 gm - Objective Vital Signs: Vital Signs Temperature 97.8 F 11/17/17 06:00 Pulse Rate 18 L 11/17/17 06:00 Respiratory Rate 86 H 11/17/17 06:00 Blood Pressure 120/70 11/17/17 06:00 O2 Sat by Pulse Oximetry (%) 97 11/16/17 21:00 Cardiovascular: Yes: S1, S2 Respiratory: Yes: Regular, CTA Bilaterally Gastrointestinal: Yes: Normal Bowel Sounds, Soft Labs: CBC, BMP 11/17/17 07:08 11/16/17 06:00 INR, PTT INR 1.03 (0.83-1.09) 11/16/17 06:00 Problem List - Problems (1) Gastrointestinal bleed Code(s): K92.2 - GASTROINTESTINAL HEMORRHAGE, UNSPECIFIED (2) Hematemesis Code(s): K92.0 - HEMATEMESIS (3) A-fib Code(s): I48.91 - UNSPECIFIED ATRIAL FIBRILLATION Qualifiers: Atrial fibrillation type: chronic Qualified Code(s): I48.2 - Chronic atrial fibrillation (4) Breast cancer Code(s): C50.919 - MALIGNANT NEOPLASM OF UNSP SITE OF UNSPECIFIED FEMALE BREAST Qualifiers: Breast location: central portion of breast Laterality: left Assessment/Plan - Problems (1) Hematemesis Assessment/Plan: -Had EGD this admission-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 , source of the bleed -Seen by GI-- -H/H dropping--Transfused 2 units prbc-- -AC resumed Code(s): K92.0 - HEMATEMESIS (2) Weakness Assessment/Plan: -OOB -Physical therapy Code(s): R53.1 - WEAKNESS (3) A-fib Assessment/Plan: -Chronic -AC resumed--on lovenox and coumadin -Tele monitoring -Cardiology consult noted Code(s): I48.91 - UNSPECIFIED ATRIAL FIBRILLATION Qualifiers: Atrial fibrillation type: chronic Qualified Code(s): I48.2 - Chronic atrial fibrillation (4) Slurred speech Assessment/Plan: -CT head unremarkable -Unable to do MRI due to PM -Neurology consult pending -Cardiology consult -Passed bedside swallow, was able to take her medications with no coughing Code(s): R47.81 - SLURRED SPEECH (5) Breast cancer Assessment/Plan: -Oncology on board Code(s): C50.919 - MALIGNANT NEOPLASM OF UNSP SITE OF UNSPECIFIED FEMALE BREAST Qualifiers: Breast location: central portion of breast Laterality: left (6) Anemia Assessment/Plan: -Iron levels l ow -Venofer 200 mg daily x 3 days-given -Transfuse -monitor H/H -Transfuse for hgb<8.0 -Check B12 and thyroid profile as well Code(s): D64.9 - ANEMIA, UNSPECIFIED (7) Hypothyroidism Assessment/Plan: -TSH high -Synthroid to 150 Physical Therapy
[2017-11-17 08:40] LABS: INR 1.01 (0.83-1.09); PROTHROMBIN TIME (PATIENT) 11.4 SEC (9.7-13.0)
[2017-11-17] MEDS: AMINO ACIDS/PROTEIN HYDROLYS 30 ML LIQUID.PKT PO SCH ×2 (09:02→18:06)
[2017-11-17] MEDS: PANTOPRAZOLE 40 MG TABLET (FP) PO SCH ×2 (09:03→21:13)
[2017-11-17] MEDS: METOPROLOL TARTRATE 50 MG TABLET (FP) PO SCH ×2 (09:03→21:13)
[2017-11-17] MEDS: ENOXAPARIN NA (PORCINE) 60 MG/0.6 ML DISP.SYRIN SQ SCH ×2 (09:03→21:13)
[2017-11-17] MEDS: SUCRALFATE 1 GM/10 ML UNIT DOSE CUPS PO SCH ×4 (09:03→21:13)
[2017-11-17] MEDS: MULTIVITAMINS (DAILY MVI) TABLET (FP) PO SCH (09:03)
[2017-11-17] MEDS: BUDESONIDE/FORMETEROL FUMARATE 160/4.5 mcg INHALER IH SCH ×2 (09:05→21:14)
[2017-11-17] MEDS: BACITRACIN 15 GM TUBE TOPICAL OINTMENT TP SCH ×2 (09:05→21:13)
--- NOTE | 2017-11-17 11:44 | PN ---
GI Progress Note Subjective: GI NOte: Not eating well. Has early satiety. Will proceed with UGI to assess degree of gastric outlet obstruction - Objective Vital Signs: Vital Signs Temperature 97.8 F 11/17/17 06:00 Pulse Rate 18 L 11/17/17 06:00 Respiratory Rate 86 H 11/17/17 06:00 Blood Pressure 120/70 11/17/17 06:00 O2 Sat by Pulse Oximetry (%) 97 11/16/17 21:00 Constitutional: Anxious ...Auscultate: Yes: Hypoactive Bowel Sounds ...Palpate: Yes: Soft, Other (nontender, not distended) Labs: CBC, BMP 11/17/17 07:08 11/16/17 06:00 INR, PTT INR 1.01 (0.83-1.09) 11/17/17 07:08 Problem List - Problems (1) Partial gastric outlet obstruction Assessment/Plan: For UGI tomorrow to assess the severity of gastric outlet obstruction being caused by her pyloric channel ulcer. Will ask folder taper operator to set up multiple smaller meals and will order supplements. Code(s): K31.1 - ADULT HYPERTROPHIC PYLORIC STENOSIS (2) Gastric ulcer Code(s): K25.9 - GASTRIC ULCER, UNSP ACUTE OR CHRONIC, W/O HEMOR OR PERF (3) Hematemesis Code(s): K92.0 - HEMATEMESIS (4) Breast cancer Code(s): C50.919 - MALIGNANT NEOPLASM OF UNSP SITE OF UNSPECIFIED FEMALE BREAST Qualifiers: Breast location: central portion of breast Laterality: left (5) Severe malnutrition Code(s): E43 - UNSPECIFIED SEVERE PROTEIN-CALORIE MALNUTRITION (6) Gastric ulcer due to chemical Code(s): K25.9 - GASTRIC ULCER, UNSP ACUTE OR CHRONIC, W/O HEMOR OR PERF
[2017-11-17] MEDS ORDERED: ACETAMINOPHEN 325 MG TABLET (FP) PO PRN (13:22)
[2017-11-17] MEDS ORDERED: WARFARIN NA 5 MG TABLET (UD) PO ONE (18:00)
--- NOTE | 2017-11-17 20:04 | PN ---
Progress Note (short form) - Note Progress Note: Patient seen in follow up. No new complaints. No significant events overnight. Inpatient Meds reviewed. Current Medications Generic Name Dose Route Start Last Admin Trade Name Freq PRN Reason Stop Dose Admin Acetaminophen 650 mg 11/17/17 13:22 Tylenol - PO Q6H PRN PAIN LEVEL 1-5 Al Hydroxide/Mg Hydroxide 30 ml 11/08/17 13:30 11/17/17 18:06 Mylanta Oral Suspension - PO 30 ml Q6HPO DESTIN Administration Alprazolam 0.25 mg 11/17/17 11:17 Xanax - PO Q12H PRN ANXIETY Amino Acids 30 ml 11/08/17 08:00 11/17/17 18:06 Prosource No Carb Liquid Pkt PO 30 ml BID@0800,1730 DESTIN Administration Atorvastatin Calcium 20 mg 11/10/17 22:00 11/16/17 21:12 Lipitor - PO 20 mg HS DESTIN Administration Bacitracin 1 applic 11/11/17 22:30 11/17/17 09:05 Bacitracin - TP 1 applic BID DESTIN Administration Budesonide/Formoterol Fumarate 2 puff 11/07/17 22:00 11/17/17 09:05 Symbicort 160/4.5mcg - IH 2 puff BID DESTIN Administration Enoxaparin Sodium 50 mg 11/15/17 22:00 11/17/17 09:03 Lovenox - SQ 50 mg BID DESTIN Administration Levothyroxine Sodium 150 mcg 11/12/17 08:51 11/17/17 06:15 Synthroid - PO 150 mcg DAILY@0700 DESTIN Administration Metoprolol Tartrate 50 mg 11/07/17 22:00 11/17/17 09:03 Lopressor - PO 50 mg BID DESTIN Administration Mirtazapine 7.5 mg 11/09/17 22:00 11/16/17 21:12 Remeron - PO 7.5 mg HS DESTIN Administration Multivitamins/Minerals/Vitamin C 1 tab 11/08/17 10:00 11/17/17 09:03 Tab-A-Vit - PO 1 tab DAILY DESTIN Administration Ondansetron HCl 4 mg 11/07/17 21:33 Zofran Injection IVPB Q6H PRN NAUSEA Pantoprazole Sodium 40 mg 11/12/17 22:00 11/17/17 09:03 Protonix - PO 40 mg BID DESTIN Administration Sucralfate 1 gm 11/08/17 18:00 11/17/17 18:06 Carafate Oral Suspension - PO 1 gm QID DESTIN Administration Warfarin Sodium 3 mg 11/18/17 18:00 Coumadin - PO DAILY@1800 DESTIN On Examination: Last Vital Signs Temp Pulse Resp BP Pulse Ox 97.4 F L 92 H 16 112/74 96 11/17/17 14:29 11/17/17 14:29 11/17/17 14:29 11/17/17 14:29 11/17/17 09:00 General: In no acute distress, lying comfortably in bed, thin, frail. Extremities: No pallor or icterus. No pedal edema. No palpable lymphadenopathy. CVS: S1, S2, regular, no gallop or murmur. Chest: good air entry bilaterally, clear Abdomen: Non-distended, non-tender, no palpable organomegaly. Neuro: Alert, oriented, non-focal. Labs: CBC, BMP 11/17/17 07:08 11/16/17 06:00 Assessment. Metastatic breast cancer - with liver mets - ER positive - recently on Taxol, now held while admitted for GI bleed, attributed to pyloric channel ulcer. Ongoing management as per GI.
[2017-11-17] MEDS: MIRTAZAPINE 15 MG TABLET (FP) PO SCH (21:13)
[2017-11-17] MEDS: ALPRAZolam 0.25 MG TABLET PO PRN (21:13)
[2017-11-17] MEDS: ATORVASTATIN CA 20 MG TABLET (FP) PO SCH (21:13)
[2017-11-18] MEDS: MAG HYDROX/AL HYDROX/SIMETH 30 ML UNIT-DOSE CUP PO SCH ×4 (00:31→18:34)
[2017-11-18] MEDS ORDERED: PT OWN MED DRAWER 7, Y5N ONE (05:39)
[2017-11-18] MEDS: LEVOTHYROXINE NA 75 MCG TABLET (FP) PO SCH (06:08)
[2017-11-18 07:39] LABS: INR 1.03 (0.83-1.09); PROTHROMBIN TIME (PATIENT) 11.6 SEC (9.7-13.0)
[2017-11-18] MEDS: ALPRAZolam 0.25 MG TABLET PO PRN ×2 (09:17→20:36)
--- NOTE | 2017-11-18 09:58 | PN ---
Progress Note, Physician - Current Medication List Current Medications: Active Medications Acetaminophen (Tylenol -) 650 mg PO Q6H PRN PRN Reason: PAIN LEVEL 1-5 Last Admin: 11/17/17 21:14 Dose: 650 mg Al Hydroxide/Mg Hydroxide (Mylanta Oral Suspension -) 30 ml PO Q6HPO [facility] Last Admin: 11/18/17 05:10 Dose: Not Given Alprazolam (Xanax -) 0.25 mg PO Q12H PRN PRN Reason: ANXIETY Last Admin: 11/17/17 21:13 Dose: 0.25 mg Amino Acids (Prosource No Carb Liquid Pkt) 30 ml PO BID@0800,1730 [facility] Last Admin: 11/17/17 18:06 Dose: 30 ml Atorvastatin Calcium (Lipitor -) 20 mg PO HS [facility] Last Admin: 11/17/17 21:13 Dose: 20 mg Bacitracin (Bacitracin -) 1 applic TP BID [facility] Last Admin: 11/17/17 21:13 Dose: 1 applic Budesonide/Formoterol Fumarate (Symbicort 160/4.5mcg -) 2 puff IH BID [facility] Last Admin: 11/17/17 21:14 Dose: 2 puff Enoxaparin Sodium (Lovenox -) 50 mg SQ BID [facility] Last Admin: 11/17/17 21:13 Dose: 50 mg Levothyroxine Sodium (Synthroid -) 150 mcg PO DAILY@0700 [facility] Last Admin: 11/18/17 06:08 Dose: Not Given Metoprolol Tartrate (Lopressor -) 50 mg PO BID [facility] Last Admin: 11/17/17 21:13 Dose: 50 mg Mirtazapine (Remeron -) 7.5 mg PO [facility] Last Admin: 11/17/17 21:13 Dose: 7.5 mg Multivitamins/Minerals/Vitamin C (Tab-A-Vit -) 1 tab PO DAILY [facility] Last Admin: 11/17/17 09:03 Dose: 1 tab Ondansetron HCl (Zofran Injection) 4 mg IVPB Q6H PRN PRN Reason: NAUSEA Pantoprazole Sodium (Protonix -) 40 mg PO BID [facility] Last Admin: 11/17/17 21:13 Dose: 40 mg Sucralfate (Carafate Oral Suspension -) 1 gm PO QID [facility] Last Admin: 11/17/17 21:13 Dose: 1 gm Warfarin Sodium (Coumadin -) 3 mg PO DAILY@1800 [facility] - Objective Vital Signs: Vital Signs Temperature 97.9 F 11/18/17 08:44 Pulse Rate 93 H 11/18/17 08:44 Respiratory Rate 18 11/18/17 08:44 Blood Pressure 125/78 11/18/17 08:44 O2 Sat by Pulse Oximetry (%) 96 11/17/17 21:00 Cardiovascular: Yes: S1, S2 Respiratory: Yes: Regular, CTA Bilaterally Gastrointestinal: Yes: Normal Bowel Sounds, Soft Labs: CBC, BMP 11/17/17 07:08 11/16/17 06:00 INR, PTT INR 1.03 (0.83-1.09) 11/18/17 05:30 Problem List - Problems (1) Gastrointestinal bleed Code(s): K92.2 - GASTROINTESTINAL HEMORRHAGE, UNSPECIFIED (2) Hematemesis Code(s): K92.0 - HEMATEMESIS (3) A-fib Code(s): I48.91 - UNSPECIFIED ATRIAL FIBRILLATION Qualifiers: Atrial fibrillation type: chronic Qualified Code(s): I48.2 - Chronic atrial fibrillation (4) Breast cancer Code(s): C50.919 - MALIGNANT NEOPLASM OF UNSP SITE OF UNSPECIFIED FEMALE BREAST Qualifiers: Breast location: central portion of breast Laterality: left Assessment/Plan - Problems (1) Hematemesis Assessment/Plan: -Had EGD this admission-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 , source of the bleed -Seen by GI-- -H/H dropping--Transfused 2 units prbc-- -AC resumed Code(s): K92.0 - HEMATEMESIS (2) Weakness Assessment/Plan: -OOB -Physical therapy Code(s): R53.1 - WEAKNESS (3) A-fib Assessment/Plan: -Chronic -AC resumed--on lovenox and coumadin -Tele monitoring -Cardiology consult noted Code(s): I48.91 - UNSPECIFIED ATRIAL FIBRILLATION Qualifiers: Atrial fibrillation type: chronic Qualified Code(s): I48.2 - Chronic atrial fibrillation (4) Slurred speech Assessment/Plan: -CT head unremarkable -Unable to do MRI due to PM -Neurology consult pending -Cardiology consult -Passed bedside swallow, was able to take her medications with no coughing Code(s): R47.81 - SLURRED SPEECH (5) Breast cancer Assessment/Plan: -Oncology on board Code(s): C50.919 - MALIGNANT NEOPLASM OF UNSP SITE OF UNSPECIFIED FEMALE BREAST Qualifiers: Breast location: central portion of breast Laterality: left (6) Anemia Assessment/Plan: -Iron levels l ow -Venofer 200 mg daily x 3 days-given -Transfuse -monitor H/H -Transfuse for hgb<8.0 -Check B12 and thyroid profile as well Code(s): D64.9 - ANEMIA, UNSPECIFIED (7) Hypothyroidism Assessment/Plan: -TSH high -Synthroid to 150 Physical Therapy
[2017-11-18] MEDS: BUDESONIDE/FORMETEROL FUMARATE 160/4.5 mcg INHALER IH SCH ×2 (10:35→22:00)
[2017-11-18] MEDS: PANTOPRAZOLE 40 MG TABLET (FP) PO SCH ×2 (11:17→21:43)
[2017-11-18] MEDS: METOPROLOL TARTRATE 50 MG TABLET (FP) PO SCH ×2 (11:17→21:43)
[2017-11-18] MEDS: MULTIVITAMINS (DAILY MVI) TABLET (FP) PO SCH (11:17)
[2017-11-18] MEDS: ENOXAPARIN NA (PORCINE) 60 MG/0.6 ML DISP.SYRIN SQ SCH ×2 (11:17→21:43)
[2017-11-18] MEDS: BACITRACIN 15 GM TUBE TOPICAL OINTMENT TP SCH ×2 (11:17→21:46)
[2017-11-18] MEDS: AMINO ACIDS/PROTEIN HYDROLYS 30 ML LIQUID.PKT PO SCH ×2 (11:17→17:33)
[2017-11-18] MEDS: SUCRALFATE 1 GM/10 ML UNIT DOSE CUPS PO SCH ×4 (11:18→21:43)
--- NOTE | 2017-11-18 16:26 | PN ---
Progress Note (short form) - Note Progress Note: Patient seen and examined Last Vital Signs Temp Pulse Resp BP Pulse Ox 97.9 F 93 H 18 125/78 96 11/18/17 08:44 11/18/17 08:44 11/18/17 08:44 11/18/17 08:44 11/18/17 10:00 HEENT: LEMUEL, EOM Intact Oropharynx: No thrush, No mucositis Breasts: Without masses; s/p left mastectomy Cor:Atrial fib Lungs:Poor inspiratory effort and diminished breath sounds bilaterally Abd: Soft, Normal bowel sounds, No organomegaly Ext:No significant edema,scd Skin: breakdown posteriorly CBC, BMP 11/17/17 07:08 11/16/17 06:00 Current Medications Generic Name Dose Route Start Last Admin Trade Name Freq PRN Reason Stop Dose Admin Acetaminophen 650 mg 11/17/17 13:22 11/17/17 21:14 Tylenol - PO 650 mg Q6H PRN Administration PAIN LEVEL 1-5 Al Hydroxide/Mg Hydroxide 30 ml 11/08/17 13:30 11/18/17 13:16 Mylanta Oral Suspension - PO 30 ml Q6HPO [facility] Administration Alprazolam 0.25 mg 11/17/17 11:17 11/18/17 09:17 Xanax - PO 0.25 mg Q12H PRN Administration ANXIETY Amino Acids 30 ml 11/08/17 08:00 11/18/17 11:17 Prosource No Carb Liquid Pkt PO 30 ml BID@0800,1730 [facility] Administration Atorvastatin Calcium 20 mg 11/10/17 22:00 11/17/17 21:13 Lipitor - PO 20 mg HS [facility] Administration Bacitracin 1 applic 11/11/17 22:30 11/18/17 11:17 Bacitracin - TP 1 applic BID [facility] Administration Budesonide/Formoterol Fumarate 2 puff 11/07/17 22:00 11/18/17 10:35 Symbicort 160/4.5mcg - IH 2 puff BID [facility] Administration Enoxaparin Sodium 50 mg 11/15/17 22:00 11/18/17 11:17 Lovenox - SQ 50 mg BID [facility] Administration Levothyroxine Sodium 150 mcg 11/12/17 08:51 11/18/17 06:08 Synthroid - PO Not Given DAILY@0700 [facility] Metoprolol Tartrate 50 mg 11/07/17 22:00 11/18/17 11:17 Lopressor - PO 50 mg BID [facility] Administration Mirtazapine 7.5 mg 11/09/17 22:00 11/17/17 21:13 Remeron - PO 7.5 mg HS [facility] Administration Multivitamins/Minerals/Vitamin C 1 tab 11/08/17 10:00 11/18/17 11:17 Tab-A-Vit - PO 1 tab DAILY [facility] Administration Ondansetron HCl 4 mg 11/07/17 21:33 Zofran Injection IVPB Q6H PRN NAUSEA Pantoprazole Sodium 40 mg 11/12/17 22:00 11/18/17 11:17 Protonix - PO 40 mg BID [facility] Administration Sucralfate 1 gm 11/08/17 18:00 11/18/17 14:16 Carafate Oral Suspension - PO 1 gm QID [facility] Administration Warfarin Sodium 3 mg 11/18/17 18:00 Coumadin - PO DAILY@1800 [facility] Impression Poor intake UGI without obstruction - gastrograffin readily passes into duodenum Diet to chopped - potentially more pallatable then full diet Needs aggressive P.T. May begin hormonal therapy as patient does not appear to be suitable for chemotherapy. Discussed with DR. PORTILLO - FEELS THAT ANTICOAGULATION CAN RESUME. Problem List - Problems (1) Gastrointestinal bleed Code(s): K92.2 - GASTROINTESTINAL HEMORRHAGE, UNSPECIFIED (2) Breast cancer, left Code(s): C50.912 - MALIGNANT NEOPLASM OF UNSPECIFIED SITE OF LEFT FEMALE BREAST Qualifiers: Estrogen receptor status: positive Patient sex: female (3) Hyperkalemia Code(s): E87.5 - HYPERKALEMIA
[2017-11-18] MEDS: WARFARIN NA 3 MG TABLET PO SCH (18:34)
[2017-11-18] MEDS: ATORVASTATIN CA 20 MG TABLET (FP) PO SCH (21:43)
[2017-11-18] MEDS: MIRTAZAPINE 15 MG TABLET (FP) PO SCH (21:46)
[2017-11-19] MEDS: MAG HYDROX/AL HYDROX/SIMETH 30 ML UNIT-DOSE CUP PO SCH ×4 (00:08→17:35)
[2017-11-19] MEDS: LEVOTHYROXINE NA 75 MCG TABLET (FP) PO SCH (06:13)
[2017-11-19 07:32] LABS: INR 1.5 (0.83-1.09)
[2017-11-19] MEDS ORDERED: MIRTAZAPINE 15 MG TABLET (FP) PO SCH (08:09)
--- NOTE | 2017-11-19 08:10 | PN ---
Progress Note, Physician History of Present Illness: Anxiety - Current Medication List Current Medications: Active Medications Acetaminophen (Tylenol -) 650 mg PO Q6H PRN PRN Reason: PAIN LEVEL 1-5 Last Admin: 11/17/17 21:14 Dose: 650 mg Al Hydroxide/Mg Hydroxide (Mylanta Oral Suspension -) 30 ml PO Q6HPO [facility] Last Admin: 11/19/17 06:13 Dose: Not Given Alprazolam (Xanax -) 0.25 mg PO Q12H PRN PRN Reason: ANXIETY Last Admin: 11/18/17 20:36 Dose: 0.25 mg Amino Acids (Prosource No Carb Liquid Pkt) 30 ml PO BID@0800,1730 [facility] Last Admin: 11/18/17 17:33 Dose: 30 ml Atorvastatin Calcium (Lipitor -) 20 mg PO HS [facility] Last Admin: 11/18/17 21:43 Dose: 20 mg Bacitracin (Bacitracin -) 1 applic TP BID [facility] Last Admin: 11/18/17 21:46 Dose: 1 applic Budesonide/Formoterol Fumarate (Symbicort 160/4.5mcg -) 2 puff IH BID [facility] Last Admin: 11/18/17 22:00 Dose: 2 puff Enoxaparin Sodium (Lovenox -) 50 mg SQ BID [facility] Last Admin: 11/18/17 21:43 Dose: 50 mg Levothyroxine Sodium (Synthroid -) 150 mcg PO DAILY@0700 [facility] Last Admin: 11/19/17 06:13 Dose: 150 mcg Metoprolol Tartrate (Lopressor -) 50 mg PO BID [facility] Last Admin: 11/18/17 21:43 Dose: 50 mg Mirtazapine (Remeron -) 15 mg PO [facility] Multivitamins/Minerals/Vitamin C (Tab-A-Vit -) 1 tab PO DAILY [facility] Last Admin: 11/18/17 11:17 Dose: 1 tab Ondansetron HCl (Zofran Injection) 4 mg IVPB Q6H PRN PRN Reason: NAUSEA Pantoprazole Sodium (Protonix -) 40 mg PO BID [facility] Last Admin: 11/18/17 21:43 Dose: 40 mg Sucralfate (Carafate Oral Suspension -) 1 gm PO QID [facility] Last Admin: 11/18/17 21:43 Dose: 1 gm Warfarin Sodium (Coumadin -) 3 mg PO DAILY@1800 [facility] Last Admin: 11/18/17 18:34 Dose: 3 mg - Objective Vital Signs: Vital Signs Temperature 97.9 F 11/19/17 05:00 Pulse Rate 99 H 11/19/17 05:00 Respiratory Rate 18 11/19/17 05:00 Blood Pressure 120/68 11/19/17 05:00 O2 Sat by Pulse Oximetry (%) 96 11/18/17 21:00 Cardiovascular: Yes: S1, S2 Respiratory: Yes: Regular, CTA Bilaterally Gastrointestinal: Yes: Normal Bowel Sounds, Soft Neurological: Yes: Weakness Labs: CBC, BMP 11/17/17 07:08 11/16/17 06:00 INR, PTT INR 1.50 (0.83-1.09) H 11/19/17 06:30 Problem List - Problems (1) Gastrointestinal bleed Code(s): K92.2 - GASTROINTESTINAL HEMORRHAGE, UNSPECIFIED (2) Hematemesis Code(s): K92.0 - HEMATEMESIS (3) A-fib Code(s): I48.91 - UNSPECIFIED ATRIAL FIBRILLATION Qualifiers: Atrial fibrillation type: chronic Qualified Code(s): I48.2 - Chronic atrial fibrillation (4) Breast cancer Code(s): C50.919 - MALIGNANT NEOPLASM OF UNSP SITE OF UNSPECIFIED FEMALE BREAST Qualifiers: Breast location: central portion of breast Laterality: left Assessment/Plan - Problems (1) Hematemesis Assessment/Plan: -Had EGD this admission-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 , source of the bleed -Seen by GI-- -H/H dropping--Transfused 2 units prbc--now stable -AC resumed Code(s): K92.0 - HEMATEMESIS (2) Weakness Assessment/Plan: -OOB -Physical therapy Code(s): R53.1 - WEAKNESS (3) A-fib Assessment/Plan: -Chronic -AC resumed--on lovenox and coumadin--inr 1.5 -Cardiology consult noted Code(s): I48.91 - UNSPECIFIED ATRIAL FIBRILLATION Qualifiers: Atrial fibrillation type: chronic Qualified Code(s): I48.2 - Chronic atrial fibrillation (4) Slurred speech Assessment/Plan: -CT head unremarkable -Unable to do MRI due to PM -Neurology consult pending -Cardiology consult -Passed bedside swallow, was able to take her medications with no coughing Code(s): R47.81 - SLURRED SPEECH (5) Breast cancer Assessment/Plan: -Oncology on board Code(s): C50.919 - MALIGNANT NEOPLASM OF UNSP SITE OF UNSPECIFIED FEMALE BREAST Qualifiers: Breast location: central portion of breast Laterality: left (6) Anemia Assessment/Plan: -Iron levels l ow -Venofer 200 mg daily x 3 days-given -Transfuse -monitor H/H -Transfuse for hgb<8.0 -Check B12 and thyroid profile as well Code(s): D64.9 - ANEMIA, UNSPECIFIED (7) Hypothyroidism Assessment/Plan: -TSH high -Synthroid to 150 Physical Therapy--DC Planning--home with assistance vs snf
[2017-11-19] MEDS: SUCRALFATE 1 GM/10 ML UNIT DOSE CUPS PO SCH ×4 (10:49→21:10)
[2017-11-19] MEDS: PANTOPRAZOLE 40 MG TABLET (FP) PO SCH ×2 (10:49→21:10)
[2017-11-19] MEDS: MULTIVITAMINS (DAILY MVI) TABLET (FP) PO SCH (10:49)
[2017-11-19] MEDS: METOPROLOL TARTRATE 50 MG TABLET (FP) PO SCH ×2 (10:49→21:10)
[2017-11-19] MEDS: ENOXAPARIN NA (PORCINE) 60 MG/0.6 ML DISP.SYRIN SQ SCH ×2 (10:50→21:11)
[2017-11-19] MEDS: BACITRACIN 15 GM TUBE TOPICAL OINTMENT TP SCH ×2 (10:54→21:10)
[2017-11-19] MEDS: AMINO ACIDS/PROTEIN HYDROLYS 30 ML LIQUID.PKT PO SCH ×2 (10:54→17:35)
[2017-11-19] MEDS: BUDESONIDE/FORMETEROL FUMARATE 160/4.5 mcg INHALER IH SCH ×2 (10:55→21:12)
--- NOTE | 2017-11-19 16:15 | PN ---
Progress Note (short form) - Note Progress Note: Patient seen and examined Poor p.o. intake OOB to chair Last Vital Signs Temp Pulse Resp BP Pulse Ox 97 F L 101 H 16 142/80 96 11/19/17 14:10 11/19/17 15:24 11/19/17 15:24 11/19/17 15:24 11/18/17 21:00 HEENT: LEMUEL, EOM Intact Oropharynx: No thrush, No mucositis Cor: irregular Lungs: diminished breath sounds bilaterally Abd: Soft, Normal bowel sounds, No organomegaly Ext:No significant edema,SCD Skin: No rashes, Integument intact CBC, BMP 11/17/17 07:08 11/16/17 06:00 Current Medications Generic Name Dose Route Start Last Admin Trade Name Freq PRN Reason Stop Dose Admin Acetaminophen 650 mg 11/17/17 13:22 11/17/17 21:14 Tylenol - PO 650 mg Q6H PRN Administration PAIN LEVEL 1-5 Al Hydroxide/Mg Hydroxide 30 ml 11/08/17 13:30 11/19/17 12:25 Mylanta Oral Suspension - PO Not Given Q6HPO [facility] Alprazolam 0.25 mg 11/17/17 11:17 11/18/17 20:36 Xanax - PO 0.25 mg Q12H PRN Administration ANXIETY Amino Acids 30 ml 11/08/17 08:00 11/19/17 10:54 Prosource No Carb Liquid Pkt PO Not Given BID@0800,1730 [facility] Atorvastatin Calcium 20 mg 11/10/17 22:00 11/18/17 21:43 Lipitor - PO 20 mg HS [facility] Administration Bacitracin 1 applic 11/11/17 22:30 11/19/17 10:54 Bacitracin - TP 1 applic BID [facility] Administration Budesonide/Formoterol Fumarate 2 puff 11/07/17 22:00 11/19/17 10:55 Symbicort 160/4.5mcg - IH 2 puff BID [facility] Administration Enoxaparin Sodium 50 mg 11/15/17 22:00 11/19/17 10:50 Lovenox - SQ 50 mg BID [facility] Administration Levothyroxine Sodium 150 mcg 11/12/17 08:51 11/19/17 06:13 Synthroid - PO 150 mcg DAILY@0700 [facility] Administration Metoprolol Tartrate 50 mg 11/07/17 22:00 11/19/17 10:49 Lopressor - PO 50 mg BID [facility] Administration Mirtazapine 15 mg 11/19/17 08:09 Remeron - PO HS [facility] Multivitamins/Minerals/Vitamin C 1 tab 11/08/17 10:00 11/19/17 10:49 Tab-A-Vit - PO 1 tab DAILY [facility] Administration Ondansetron HCl 4 mg 11/07/17 21:33 Zofran Injection IVPB Q6H PRN NAUSEA Pantoprazole Sodium 40 mg 11/12/17 22:00 11/19/17 10:49 Protonix - PO 40 mg BID [facility] Administration Sucralfate 1 gm 11/08/17 18:00 11/19/17 14:27 Carafate Oral Suspension - PO 1 gm QID [facility] Administration Warfarin Sodium 3 mg 11/18/17 18:00 11/18/17 18:34 Coumadin - PO 3 mg DAILY@1800 [facility] Administration Impression: Metastatic breast ca liver, bone, lung involvement gastritis- with ulcer and stricture which has shown improvemtn on current UGI A/C-- coumadin resumed Plan: continue Faslodex therapy. Problem List - Problems (1) Gastrointestinal bleed Code(s): K92.2 - GASTROINTESTINAL HEMORRHAGE, UNSPECIFIED (2) Breast cancer, left Code(s): C50.912 - MALIGNANT NEOPLASM OF UNSPECIFIED SITE OF LEFT FEMALE BREAST Qualifiers: Estrogen receptor status: positive Patient sex: female (3) Hyperkalemia Code(s): E87.5 - HYPERKALEMIA
[2017-11-19] MEDS: WARFARIN NA 3 MG TABLET PO SCH (17:35)
[2017-11-19] MEDS: ALPRAZolam 0.25 MG TABLET PO PRN (20:39)
[2017-11-19] MEDS: ATORVASTATIN CA 20 MG TABLET (FP) PO SCH (21:10)
--- NOTE | 2017-11-19 22:13 | PN ---
Progress Note (short form) - Note Progress Note: GI NOte: Sleeping so did not awaken. Oral intake poor despite surprising UGI finding of no gastric outlet obstruction. I suspect this reflects her tumor burden. Problem List - Problems (1) Partial gastric outlet obstruction Code(s): K31.1 - ADULT HYPERTROPHIC PYLORIC STENOSIS (2) Gastric ulcer Code(s): K25.9 - GASTRIC ULCER, UNSP ACUTE OR CHRONIC, W/O HEMOR OR PERF (3) Hematemesis Code(s): K92.0 - HEMATEMESIS (4) Breast cancer Code(s): C50.919 - MALIGNANT NEOPLASM OF UNSP SITE OF UNSPECIFIED FEMALE BREAST Qualifiers: Breast location: central portion of breast Laterality: left (5) Severe malnutrition Code(s): E43 - UNSPECIFIED SEVERE PROTEIN-CALORIE MALNUTRITION (6) Gastric ulcer due to chemical Code(s): K25.9 - GASTRIC ULCER, UNSP ACUTE OR CHRONIC, W/O HEMOR OR PERF
[2017-11-20] MEDS: MAG HYDROX/AL HYDROX/SIMETH 30 ML UNIT-DOSE CUP PO SCH ×4 (01:04→17:34)
[2017-11-20] MEDS: LEVOTHYROXINE NA 75 MCG TABLET (FP) PO SCH (06:27)
--- NOTE | 2017-11-20 08:18 | DS ---
Physical Examination Vital Signs: Vital Signs Temperature 97.6 F 11/20/17 06:00 Pulse Rate 89 11/20/17 06:00 Respiratory Rate 18 11/20/17 06:00 Blood Pressure 119/67 11/20/17 06:00 O2 Sat by Pulse Oximetry (%) 96 11/19/17 21:00 Cardiovascular: Yes: S1, S2 Respiratory: Yes: Regular, CTA Bilaterally Gastrointestinal: Yes: Normal Bowel Sounds, Soft. No: Tenderness Labs: CBC, BMP 11/17/17 07:08 11/16/17 06:00 Discharge Summary Reason For Visit: WEAKNESS Current Active Problems Anemia (Acute) Gastric ulcer (Acute) Gastric ulcer due to chemical (Acute) Hematemesis (Acute) Hyperkalemia (Acute) Partial gastric outlet obstruction (Acute) Severe malnutrition (Acute) Slurred speech (Acute) Weakness (Acute) Hospital Course: - Problems (1) Hematemesis Assessment/Plan: -Had EGD this admission-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 , source of the bleed -Seen by GI-- -H/H dropping--Transfused 2 units prbc--now stable -AC resumed Code(s): K92.0 - HEMATEMESIS (2) Weakness Assessment/Plan: -OOB -Physical therapy Code(s): R53.1 - WEAKNESS (3) A-fib Assessment/Plan: -Chronic -AC resumed--on lovenox and coumadin--inr 1.5 -Cardiology consult noted Code(s): I48.91 - UNSPECIFIED ATRIAL FIBRILLATION Qualifiers: Atrial fibrillation type: chronic Qualified Code(s): I48.2 - Chronic atrial fibrillation (4) Slurred speech Assessment/Plan: \- -Resolved -CT head unremarkable -Unable to do MRI due to PM -Neurology consult pending -Cardiology consult noted -Passed bedside swallow, was able to take her medications with no coughing Code(s): R47.81 - SLURRED SPEECH (5) Breast cancer Assessment/Plan: -Oncology on board Code(s): C50.919 - MALIGNANT NEOPLASM OF UNSP SITE OF UNSPECIFIED FEMALE BREAST Qualifiers: Breast location: central portion of breast Laterality: left (6) Anemia Assessment/Plan: -Iron levels low -Venofer 200 mg daily x 3 days-given -Transfused prbc -monitor H/H-stable -Check B12 and thyroid profile as well Code(s): D64.9 - ANEMIA, UNSPECIFIED (7) Hypothyroidism Assessment/Plan: -TSH high -Synthroid to 150 Physical Therapy--DC Planning--home with assistance vs snf Condition: Stable - Instructions Diet, Activity, Other Instructions: Monitor labs monitor inr Referrals: Kristina Martinez MD [Primary Care Provider] - - Home Medications Comprehensive Discharge Medication List: Ambulatory Orders Acetaminophen [Tylenol .Regular Strength -] 650 mg PO Q6H PRN tablet 11/20/17 Amino Acids/Protein Hydrolys [Prosource No Carb Liquid Pkt] 30 ml PO BID@0800, 1730 packet 11/20/17 Atorvastatin Ca [Lipitor] 20 mg PO HS tablet 11/20/17 Bacitracin - [Bacitracin Topical Ointment -] 1 applic TP BID tube 11/20/17 Budesonide/Formeterol Fumarate [SYMBICORT 160/4.5mcg -] 2 puff IH BID inhaler 11/20/17 Levothyroxine [Synthroid -] 150 mcg PO DAILY@0700 tablet 11/20/17 Mag Hydrox/Al Hydrox/Simeth [Mylanta Oral Suspension -] 30 ml PO Q6HPO cup Metoprolol Tartrate [Lopressor -] 50 mg PO BID tablet 11/20/17 Mirtazapine [Remeron -] 15 mg PO HS tablet 11/20/17 Multivitamins [Multivit ([facility] Formulary)] 1 tab PO DAILY tab 11/20/17 Pantoprazole Sodium [Protonix -] 40 mg PO BID tablet.ec 11/20/17 Polyethylene Glycol 3350 [Miralax 119 gm Btl -] 17 gm PO DAILY bottle 11/20/17 Sucralfate Oral Suspension [Carafate Oral Suspension -] 1 gm PO QID ml Warfarin Na [Coumadin -] 3 mg PO DAILY@1800 tablet 11/20/17
[2017-11-20] MEDS: AMINO ACIDS/PROTEIN HYDROLYS 30 ML LIQUID.PKT PO SCH ×2 (08:39→17:34)
[2017-11-20] MEDS ORDERED: PT OWN MED DRAWER 7, Y5N ONE (08:54)
[2017-11-20] MEDS: PANTOPRAZOLE 40 MG TABLET (FP) PO SCH (09:01)
[2017-11-20] MEDS: SUCRALFATE 1 GM/10 ML UNIT DOSE CUPS PO SCH ×3 (09:01→17:34)
[2017-11-20] MEDS: MULTIVITAMINS (DAILY MVI) TABLET (FP) PO SCH (09:01)
[2017-11-20] MEDS: BUDESONIDE/FORMETEROL FUMARATE 160/4.5 mcg INHALER IH SCH (09:01)
[2017-11-20] MEDS: ENOXAPARIN NA (PORCINE) 60 MG/0.6 ML DISP.SYRIN SQ SCH (09:01)
[2017-11-20] MEDS: METOPROLOL TARTRATE 50 MG TABLET (FP) PO SCH (09:01)
[2017-11-20] MEDS: BACITRACIN 15 GM TUBE TOPICAL OINTMENT TP SCH (09:01)
[2017-11-20 09:53] LABS: BASO % 0.5 % (0-2.0); EOS % 0.6 % (0-4.5); HEMATOCRIT 38.9 % (32.4-45.2); HEMOGLOBIN 12.8 GM/dL (10.7-15.3); LYMPH % 7.6 % (8-40); MCH 30.2 pg (25.7-33.7); MCHC 32.9 g/dl (32.0-36.0); MEAN CELL VOLUME 91.7 fl (80-96); MEAN PLT VOLUME 8.7 fl (7.5-11.1); MONO % 7.5 % (3.8-10.2); NEUT % 83.8 % (42.8-82.8); PLATELET COUNT 101 K/MM3 (134-434); RBC 4.24 M/mm3 (3.60-5.2); RDW 20.7 % (11.6-15.6); WHITE BLOOD COUNT 7.5 K/mm3 (4.0-10.0)
[2017-11-20] MEDS ORDERED: POLYETHYLENE GLYCOL 3350 119 GM BTL PO SCH (10:00)
[2017-11-20 10:13] LABS: INR 1.81 (0.83-1.09); PROTHROMBIN TIME (PATIENT) 20.4 SEC (9.7-13.0)
[2017-11-20 10:16] LABS: CHLORIDE 105 mmol/L (98-107); POTASSIUM 3.7 mmol/L (3.5-5.1); SODIUM 144 mmol/L (136-145)
[2017-11-20 10:27] LABS: ALBUMIN 2.2 g/dl (3.4-5.0); ALK PHOS 281 U/L (45-117); ANION GAP 9 MMOL/L (8-16); BILIRUBIN,TOTAL 0.5 mg/dL (0.2-1.0); BLOOD UREA NITROGEN 25 mg/dL (7-18); CO2 30 mmol/L (21-32); CREATININE 0.7 mg/dL (0.55-1.02); GLUCOSE,RANDOM 83 mg/dL (74-106); SGOT/AST 106 U/L (15-37); SGPT/ALT 31 U/L (12-78); TOT PROT 5.2 g/dl (6.4-8.2)
[2017-11-20 11:19] LABS: ANISOCYTOSIS 2+; MACROCYTOSIS 1+
[2017-11-20 11:20] LABS: PLATELET ESTIMATE SLT DECREASE
--- NOTE | 2017-11-20 13:02 | PN ---
GI Progress Note Subjective: GI Note. Eating poorly. Brian denies abdominal pain or nausea. She simply has no appetite. - Objective Vital Signs: Vital Signs Temperature 98.0 F 11/20/17 10:00 Pulse Rate 95 H 11/20/17 11:31 Respiratory Rate 18 11/20/17 10:00 Blood Pressure 134/85 11/20/17 10:00 O2 Sat by Pulse Oximetry (%) 93 L 11/20/17 11:31 Constitutional: Anxious ...Auscultate: Yes: Normoactive Bowel Sounds ...Palpate: Yes: Other (nontender) Labs: CBC, BMP 11/20/17 08:48 11/20/17 08:48 INR, PTT INR 1.81 (0.83-1.09) H 11/20/17 08:48 Problem List - Problems (1) Partial gastric outlet obstruction Assessment/Plan: Poor oral intake appears to reflect tumor burden more than any primary GI process. Code(s): K31.1 - ADULT HYPERTROPHIC PYLORIC STENOSIS (2) Gastric ulcer Code(s): K25.9 - GASTRIC ULCER, UNSP ACUTE OR CHRONIC, W/O HEMOR OR PERF (3) Hematemesis Code(s): K92.0 - HEMATEMESIS (4) Breast cancer Code(s): C50.919 - MALIGNANT NEOPLASM OF UNSP SITE OF UNSPECIFIED FEMALE BREAST Qualifiers: Breast location: central portion of breast Laterality: left (5) Severe malnutrition Code(s): E43 - UNSPECIFIED SEVERE PROTEIN-CALORIE MALNUTRITION (6) Gastric ulcer due to chemical Code(s): K25.9 - GASTRIC ULCER, UNSP ACUTE OR CHRONIC, W/O HEMOR OR PERF
[2017-11-20 15:23] VITALS: BP 114/58; PULSE 87; TEMP 97.6
[2017-11-20] MEDS: WARFARIN NA 3 MG TABLET PO SCH (17:33)
== END 2017-11-20 20:55 | DRG 377 ==
LOC: JER 10:23 → JERBED 13:17 → J4S 11-07 18:10 → OBSVTOIN 11-08 10:45
PROVIDERS: ADMIT Family Medicine; ATTEND Family Medicine
PROC: 30233N1 Transfusion of Nonautologous Red Blood Cells into Peripheral Vein, Percutaneous Approach (ICD-10-PCS; 2017-11-07)
PROC: 0DD68ZX Extraction of Stomach, Via Natural or Artificial Opening Endoscopic, Diagnostic (ICD-10-PCS; principal; 2017-11-08 11:15)
DX: K25.4 Chronic or unspecified gastric ulcer with hemorrhage (principal); E43 Unspecified severe protein-calorie malnutrition; K31.1 Adult hypertrophic pyloric stenosis; Z68.1 Body mass index [BMI] 19.9 or less, adult; C78.7 Secondary malignant neoplasm of liver and intrahepatic bile duct; R64 Cachexia; D68.32 Hemorrhagic disorder due to extrinsic circulating anticoagulants; I48.2 Chronic atrial fibrillation; C50.919 Malignant neoplasm of unspecified site of unspecified female breast; D64.9 Anemia, unspecified; E87.5 Hyperkalemia; R53.1 Weakness; R47.81 Slurred speech; E03.9 Hypothyroidism, unspecified; D69.6 Thrombocytopenia, unspecified; E78.5 Hyperlipidemia, unspecified; Z95.0 Presence of cardiac pacemaker; J44.9 Chronic obstructive pulmonary disease, unspecified; K29.60 Other gastritis without bleeding; K44.9 Diaphragmatic hernia without obstruction or gangrene; K20.8 Other esophagitis
CPT/HCPCS: 36415; 36430; 70450-TC; 71045-TC-FY; 74220-TC-FY; 74240-TC-FY; 80048; 80053; 80076; 82272; 82607; 82728; 83540; 83550; 83735; 84100; 84439; 84443; 85025; 85027; 85044; 85610; 86850; 86900; 86901; 86922; 88305-TC; 93005; 93010; 93880-TC; 94761; 96361; 96367; 96375; 96413; 97116-GP; 97161-GP; 99285-25; G0378; J1100; J1756; J2469; J7030; P9038; P9058